=== PATIENT | female | born 1955 | race Caucasian/White ===

== ENCOUNTER 2021-02-12 11:26 | Inpatient (IN) | payer MEDICARE, MEDICAID ==
[~2021-02-12] VITALS: Ht 154.9 cm; Wt 72.1 kg
[2021-02-12] MEDS ORDERED: MAALOX 30 ML SUSP *UDC PO PRN (13:50)
[2021-02-12] MEDS ORDERED: GLUCAGON INJ 1MG VIAL SC PRN (13:50)
[2021-02-12] MEDS ORDERED: GLUCOSE 4GM CHEW TABLET PO PRN (13:50)
[2021-02-12] MEDS ORDERED: DEXTROSE 50% 50 ML SYRINGE IV PRN (13:50)
--- NOTE | 2021-02-12 15:16 | HPEPDOC ---
Planning Official Note DATE OF ADMISSION: 02-12-21 DATE OF SERVICE: 02-13-21 TIME OF ADMISSION: Please refer to physician's admission order. SOURCE OF ADMISSION INFORMATION: [facility] records and patient CHIEF COMPLAINT: s/p aortic and mitral valve repair HISTORY OF PRESENT ILLNESS: 65F pmh HTN, HLD, obesity, hypothyroidism, depression, CKD4, vulvar cancer s/p left partial radical vulvectomy in 2004, severe aortic and mitral valve stenosis admitted to [facility] for a planned surgery for which she underwent a sternotomy with a redo-aortic valve replacement (original done in 2007)and mitral valve repair. Post-operatively she developed a fever for which infectious work-up was negative. She was started on Coumadin with goal INR 2.5- 3.5 for mechanical valves and on 01-27-21 underwent pacemaker placement. She had hoarseness for which she was initially made NPO then placed on a puree diet with FEES study showing normal vocal cords. She was anemic and received 1 unit of pr bcs on 02-09-21. CXR on 02-12-21 showed, status post median sternotomy, a left- sided transvenous pacemakerbibasilar atelectasis. No pneumonia, pulmonary edema, pneumothoraces, or pleural effusion. She had mobility and ADL impairments below her prior level of function with difficulties with overall endurance and deemed medically appropriate for discharge to ARU on 02-12-21. REVIEW OF SYSTEMS: The following is a completed review of systems and has been reviewed. Review of systems otherwise unremarkable. PAIN: Patient self reports no pain EYES: No recent vision changes EARS, NOSE, & THROAT: No throat pain, + dysphagia CARDIOVASCULAR: Denies chest pain or palpitations PULMONARY: Denies shortness of breath GASTROINTESTINAL: Denies constipation/diarrhea, +black stools GENITOURINARY: denies dysuria MUSCULOSKELETAL:generalized weakness NEUROLOGICAL: +bilat feet paresthesias HEMATOLOGICAL: +anemia SKIN: +sternal incision PSYCHIATRIC: Unremarkable All other review of systems found to be negative. PAST MEDICAL HISTORY: as per HPI PAST SURGICAL HISTORY: As per HPI, tubal ligation ALLERGIES: Please see below. MEDICATIONS: Please see below. SOCIAL HISTORY: no etoh/illicit drugs/smoking DIET: puree PHYSICAL EXAMINATION: VITAL SIGNS: Please see below. GENERAL: Pleasant and cooperative. No acute distress. pale HEENT: PERRL. Extraocular movements intact. Clear conjunctiva, poor dentition CARDIOVASCULAR: Regular rate and rhythm. No murmurs, rubs, or gallops LUNGS: Clear to auscultation bilaterally. No wheezes. No rhonchi ABDOMEN: Soft, nontender, mildly distended, Positive bowel sounds. Normal active bowel sounds NEUROLOGICAL: Alert and oriented times three. Cranial nerves II through XII grossly intact. Sensation grossly intact EXTREMITIES: 5\5 strength bilateral upper extremities. 5\5 strength right lower extremity. 5/5 strength in left lower extremity. SKIN: sternal incision c/d/i, pacemaker incision c/d/i LABORATORY DATA: Please see below. IMAGING:Imaging documentation personally reviewed by record FUNCTIONAL STATUS: Premorbid: Independent with all activities of daily life as well as mobility On Admission: Min-contact guard for bed mobility, functional transfers, ambulation, dressing GOALS: Mod-I with RW for ambulation, functional transfers, ambulation, stairs, dressing, toileting, bathing ASSESSMENT:65-year-old F with past medical history of prior aortic valve repair who presents status post re-do aortic valve replacement and mitral valve replacement PLAN: 1. Rehab- PT/OT advance mobility and ADLs, strengthen/stretch/maintain ROM all 4 limbs -CUSTOMER ASSOCIATE for dysphagia work-up, magic mouth wash for optimal oral care 2. Cardiac- s/p aortic valve and mitral mechanical valve replacement and pacemaker placement on Coumadin with goal INR 2.5-3.5, additionally patient is on 325mg daily, cont beta-apoorva- sternal and pacemaker precautions, avoid driving for 6 months -HLD cont statin -monitor for fluid overload, fluid restrict and daily weights in setting of probable some degree of CHF -medicine consulted to assist in overall management -f/u cardiac surgeon 03-26-21 , will need repeat CXR prior -EP Dr. Otto [phone] 3. Resp- monitor for infection 4. Endo- hx of hypothyroidism, cont synthroid -insulin sliding scale in place due to new dx of diabetes with A1C f 7.1%, will monitor FS while here and avoid metformin given CKD 5. Heme- anemia with Hgb 7.7% on 02-13-21, patient reporting she has a hx of black stools which she believes is from her iron, will give 2 units prbc, and await collection of FOBT 6. GI- high suspicion for GI bleed while on Coumadin and ASA 325mg daily , cont protonix 40mg BID and sucralfate, f/u FOBT 7. Pain- tramadol and tylenol, gabapentin -lidoderm patch to sternum 8. DVT ppx- teds and on coumadin 9. Psych- cont zoloft for depression, seroquel prn insomnia and rozerem 10. Renal- hx of CKD monitor for NEHEMIAS 11. Dispo- TBD POST ADMISSION PHYSICIAN EVALUATION: Medical and functional status: Description of medical status, medical assessment: As above. Rehabilitation diagnosis and current and prior cold morbid medical conditions as above. Risk of complications and plans to mitigate them as above. Description of functional status current status is as above. Prior status as above. Status compared to preadmission: There are no clinically significant differences between the patient's current status and the information described on the preadmission screening document. Treatment plan anticipated: Treatment plan is as described above. Required disciplines including physical therapy, occupational therapy, others as noted above Intensity of services: 3 hours a day, 6 days a week. Special considerations: There are no specific special or safety considerations that would likely preclude immediate implementation of an intensive rehabilitation program or subsequently influence the plan of care. ATTESTATION: Considering all the information above, it is my best judgment that this patient requires intensive rehabilitation therapy as described above and an inpatient hospital environment due to the complexity of nursing, medical, and rehabilitation needs required by the patient. Furthermore, this patient can reasonably be expected to participate in an benefit from an inpatient rehabilitation stay with an interdisciplinary team approach to the delivery of rehabilitation care under the direction and supervision of rehabilitation physician. PROGNOSIS: good ESTIMATED LENGTH OF STAY:10-14 days. PROJECTED DISCHARGE DESTINATION: Home with family support and any durable med ical equipment required to increase functional safety and mobility TIME SPENT COUNSELING AND COORDINATING INITIAL CARE: Greater than 70 minutes. Vital Signs Vital Signs Date Time Temp Pulse Resp B/P (MAP) Pulse Ox O2 Delivery O2 Flow Rate FiO2 02/12/21 18:20 96.9 75 18 160/60 (93) 100 Room Air Home Medications Scheduled Aspirin (Aspirin EC) 325 Mg Tablet., 325 MG PO DAILY, (Reported) HOME DOSE INCREASE FROM 81MG AT [facility] Atorvastatin Calcium (Atorvastatin Calcium) 40 Mg Tablet, 40 MG PO QHS, (Reported) Ferrous Sulfate (Ferrous Sulfate) 324 Mg Tablet.dr, 324 MG PO DAILY, (Reported) Gabapentin (Gabapentin) 100 Mg Capsule, 200 MG PO QHS, (Reported) STARTED AT [facility] Insulin Human Regular (Humulin R) 100 Unit/1 Ml Vial, 1 DOSE SC QHS, (Reported) 0-2 UNITS PER SLIDING SCALE - STARTED AT [facility] Insulin Lispro (Admelog) 100 Unit/1 Ml Vial, 1 DOSE SC AC, (Reported) PER SLIDING SCALE - STARTED AT [facility] Levothyroxine Sodium (Levoxyl) 88 Mcg Tablet, 88 MCG PO DAILY, (Reported) DOSE CHANGED AT [facility] Lidocaine (Anecream) 4% Cream..g., 1 APLCT TOP QHS, (Reported) APPLY TO AFFECTED AREA - STARTED AT [facility] Melatonin (Melatonin) 5 Mg Tablet, 5 MG PO QHS, (Reported) STARTED AT [facility] Metoprolol Succinate (Metoprolol Succinate) 25 Mg Tab.er.24h, 25 MG PO BID, (Reported) Nystatin (Nystatin Oint) 30 Gm Oint...g., 1 DOSE TOP TID, (Reported) APPLY TO GROIN, UPPER THIGHS, ABDOMINAL FOLDS, & BUTTOCKS - STARTED AT [facility] Omeprazole (Omeprazole) 20 Mg Capsule.dr, 20 MG PO DAILY, (Reported) Sertraline HCl (Sertraline HCl) 50 Mg Tablet, 50 MG PO DAILY, (Reported) Warfarin Sodium (Warfarin Sodium) 1 Mg Tablet, 1 DOSE PO QPM, (Reported) BASED ON DAILY INR, STARTED AT [facility] Scheduled PRN Acetaminophen (Tylenol) 325 Mg Tablet, 650 MG PO Q8H PRN for MILD PAIN (PS 1-4), (Reported) Quetiapine Fumarate (Seroquel) 25 Mg Tablet, 25 MG PO QHS PRN for SLEEP, (Reported) STARTED AT [facility] Tramadol HCl (Tramadol HCl) 50 Mg Tablet, 25 MG PO Q6H PRN for MODERATE PAIN (PS 5-7), (Reported) STARTED AT [facility] Allergies Coded Allergies: phenytoin (Verified Allergy, Mild, HAND SWELLING, 02/12/21) A-FIB/CHADSVASC A-FIB History Current/History of A-Fib/PAF?: No Current PO Anticoag Therapy: Yes JOSE RAVI MD Feb 12, 2021 15:16
[2021-02-12 18:20] VITALS: BP 160/60
[2021-02-12] MEDS ORDERED: ANEC4CRE3 TOP (19:37)
[2021-02-12] MEDS ORDERED: ACET-907 PO (19:37)
[2021-02-12] MEDS ORDERED: SERT50TA29 PO (19:37)
[2021-02-12] MEDS ORDERED: SERO1TAB3 PO (19:37)
[2021-02-12] MEDS ORDERED: METO1TAB32 PO (19:37)
[2021-02-12] MEDS ORDERED: GABA-1171 PO (19:37)
[2021-02-12] MEDS ORDERED: NYSTOI TOP (19:37)
[2021-02-12] MEDS ORDERED: MELA5TAB7 PO (19:37)
[2021-02-12] MEDS ORDERED: OMEP-218 PO (19:37)
[2021-02-12] MEDS ORDERED: ADME100I SC (19:37)
[2021-02-12] MEDS ORDERED: INSURSD SC (19:37)
[2021-02-12] MEDS ORDERED: ASPI325T48 PO (19:37)
[2021-02-12] MEDS ORDERED: TRAM50TA2 PO (19:37)
[2021-02-12] MEDS ORDERED: WARF4TAB52 PO (19:37)
[2021-02-12] MEDS ORDERED: ATOR40TA75 PO (19:37)
[2021-02-12] MEDS ORDERED: FERR324T2 PO (19:37)
[2021-02-12] MEDS ORDERED: LEVO88TA24 PO (19:37)
[2021-02-12] MEDS ORDERED: HOME MED LIST COMPLETE! XX SCH (19:40)
[2021-02-12 19:43] LABS: INR 3.47; PROTHROMBIN TIME 35.1 SECONDS (12.7-14.5)
[2021-02-12 19:44] LABS: PARTIAL THROMBOPLASTIN TIME 52.8 SECONDS (25.9-37.0)
[2021-02-12 20:00] VITALS: BP 144/65
[2021-02-12] MEDS ORDERED: PILL CUTTER 1 EACH XX PRN (20:05)
[2021-02-12] MEDS: GABAPENTIN 100 MG CAP PO SCH (20:55)
[2021-02-12] MEDS: RAMELTEON 8 MG TAB (ROZEREM) PO PRN (20:55)
[2021-02-12] MEDS: ACETAMINOPHEN 500 MG TAB PO SCH (20:55)
[2021-02-12] MEDS: traMADol 50 MG TAB PO PRN (20:56)
[2021-02-12] MEDS: SENNA 8.6 MG TAB (SENOKOT) PO SCH (20:58)
[2021-02-12] MEDS: METOPROLOL SUCC *XL* 25MG TAB (TopROL *XL*) PO SCH (20:58)
[2021-02-12] MEDS: HumaLOG INSULIN (NovoLOG) PER UNIT SC SCH (20:58)
[2021-02-12] MEDS: DOCUSATE SODIUM 100MG CAPSULE PO SCH (20:58)
[2021-02-12] MEDS: PANTOPRAZOLE 40MG TAB (PROTONIX) PO SCH (20:58)
[2021-02-12] MEDS: REMEDY PHYTOPLEX Z-GUARD PASTE 113GM TUBE (FROM STOREROOM PRODUCT) TOP SCH (20:59)
[2021-02-12] MEDS: **NOTE PATIENT COMMENT** MISC XX SCH (20:59)
[2021-02-12] MEDS: NYSTATIN 100,000 UNITS/GM TOPICAL PWD 15 GM TOP SCH (20:59)
[2021-02-13] VITALS (12 sets, daily range): BP systolic 98–130; BP diastolic 52–72
[2021-02-13] MEDS: REMEDY PHYTOPLEX Z-GUARD PASTE 113GM TUBE (FROM STOREROOM PRODUCT) TOP SCH ×3 (06:00→18:00)
[2021-02-13] MEDS: LEVOTHYROXINE 88MCG TABLET (0.088 MG) PO SCH (06:38)
[2021-02-13] MEDS: traMADol 50 MG TAB PO PRN (06:49)
[2021-02-13] MEDS: HumaLOG INSULIN (NovoLOG) PER UNIT SC SCH ×4 (07:30→20:12)
[2021-02-13 07:59] LABS: BASO # 0.1 10^3/uL (0.0-0.2); BASO % 0.6 % (0.0-1.0); EOS # 0.5 10^3/uL (0.0-0.5); EOS % 6.7 % (0.0-3.0); HEMATOCRIT 25.2 % (36.0-47.0); HEMOGLOBIN 7.7 g/dl (12.0-15.5); LYMPH # 0.7 10^3/uL (1.5-5.0); LYMPH % 9.1 % (24.0-44.0); MEAN CORPUSCULAR HEMOGLOBIN 29.2 pg (27.0-33.0); MEAN CORPUSCULAR HGB CONC 30.6 g/dl (32.0-36.5); MEAN CORPUSCULAR VOLUME 95.5 fl (80.0-96.0); MONO # 0.5 10^3/uL (0.0-0.8); MONO % 6.8 % (2.0-8.0); NEUTROPHILS % 76.4 % (36.0-66.0); PLATELET COUNT, AUTOMATED 523 10^3/uL (150-450); RED BLOOD COUNT 2.64 10^6/uL (4.00-5.40); WHITE BLOOD COUNT 7.9 10^3/uL (4.0-10.0)
[2021-02-13 08:12] LABS: INR 3.93; PROTHROMBIN TIME 38.7 SECONDS (12.7-14.5)
[2021-02-13 08:22] LABS: BILIRUBIN,TOTAL 0.5 MG/DL (0.2-1.0); CALCIUM LEVEL 8.5 MG/DL (8.8-10.2); CREATININE FOR GFR 1.45 MG/DL (0.55-1.30); GLOMERULAR FILTRATION RATE 38.3 (>45); POTASSIUM SERUM 4.3 MEQ/L (3.5-5.1); TOTAL PROTEIN 6.8 GM/DL (6.4-8.2)
[2021-02-13] MEDS: LIDOCAINE 5% (LIDODERM) PATCH TD SCH (09:04)
[2021-02-13] MEDS: NYSTATIN 100,000 UNITS/GM TOPICAL PWD 15 GM TOP SCH ×2 (09:04→20:15)
[2021-02-13] MEDS: SERTRALINE HCL 50 MG TAB PO SCH (09:05)
[2021-02-13] MEDS: CYANOCOBALAMIN 500 MCG TAB PO SCH (09:05)
[2021-02-13] MEDS: ASPIRIN ENTERIC 325 MG TAB PO SCH (09:05)
[2021-02-13] MEDS: ATORVASTATIN 20 MG TAB PO SCH (09:05)
[2021-02-13] MEDS: PANTOPRAZOLE 40MG TAB (PROTONIX) PO SCH ×2 (09:05→20:09)
[2021-02-13] MEDS: FERROUS SULFATE 325MG TAB PO SCH (09:05)
[2021-02-13] MEDS: DOCUSATE SODIUM 100MG CAPSULE PO SCH ×2 (09:05→20:08)
[2021-02-13] MEDS: ACETAMINOPHEN 500 MG TAB PO SCH ×3 (09:06→20:09)
[2021-02-13] MEDS: METOPROLOL SUCC *XL* 25MG TAB (TopROL *XL*) PO SCH ×2 (09:06→20:09)
[2021-02-13] MEDS ORDERED: diphenhydrAMINE 25MG CAP PO ONE (09:50)
[2021-02-13] MEDS ORDERED: FUROSEMIDE 20MG/2ML VIAL (J1940) IV ONE (09:50)
[2021-02-13] MEDS ORDERED: ACETAMINOPHEN TAB 650MG DOSE (2X325MG) PO ONE (09:50)
--- NOTE | 2021-02-13 11:06 | HPEPDOC ---
[facility] Medical History & Physical Date of Admission Feb 12, 2021 Date of Service: Feb 13, 2021 Other Provider My He Do hospitalist consult Attending Physician: JOSE RAVI MD History and Physical CHIEF COMPLAINT: Weakness after cardiac surgery HISTORY OF PRESENT ILLNESS: Patient is a 65-year-old female who presented to the acute rehabilitation unit from [facility] in [place], [place] yesterday, 02/12/2021 after repair of stenotic bioprosthetic aortic valve and stenotic mitral valve with mechanical aortic mechanical mitral valve placed on 01/22/2021. 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 Patient states that she is scheduled to have the surgery done in [place], [place] however, they canceled the surgery and sent her to [place], [place] as there was too much calcification of the mitral annulus and they were unable to do the procedure there. Patient states that she is feeling better but is feeling weak. While she was hospitalized, patient did require a unit of blood to be transfused as her hemoglobin was slowly dropping throughout her hospitalization according to the notes. Patient did not have any difficulty with his transfusion. Patient does not complain of any pain at this time. Patient is otherwise feeling well. PAST MEDICAL HISTORY: 1. Hypertension. 2. Hyperlipidemia. 3. Chronic kidney disease stage IV. 4. Obesity 5. Hypothyroidism 6. Vulvar cancer 7. Aortic stenosis of bioprosthetic valve 8. Severe mitral stenosis PAST SURGICAL HISTORY: 1. Placement of mechanical aortic and mitral valve on 01/22/2021. 2. Pacemaker placed on 01/27/2021. 3. Bioprosthetic aortic valve replacement 2007. 4. Tubal ligation 5. Partial vulvectomy SOCIAL HISTORY: Patient lives in [place], [place] alone. 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 Patient does not smoke cigarettes. Patient will very rarely drink alcohol denies illicit drug use FAMILY HISTORY: Patient's mother had 4 heart surgeries due to rheumatic heart disease, patient sister did for heart surgery but she is unsure of the exact reasons. Patient's uncle also had a heart surgery but again she is unsure of why ALLERGIES: Please see below. REVIEW OF SYSTEMS: General: Patient denies fevers HEENT: Patient denies headaches Cardiovascular: Patient denies chest pain Respiratory: Patient denies shortness of breath, cough GI: Patient denies abdominal pain, nausea, vomiting, diarrhea : Patient denies increased frequency or pain with urination Extremities: Patient denies swelling or pain in extremities Neurological: Patient denies numbness or tingling in legs Skin: Patient denies any new rashes or lesions. Hematologic: Patient denies any easy bruising. Lymphatic: Patient denies any lumps lumps or bumps in neck, axilla, or groin HOME MEDICATIONS: Please see below. PHYSICAL EXAMINATION: VITAL SIGNS: Temperature 97.8, pulse 93, respiratory rate 18, blood pressure 128/60, pulse oximetry 96% on room air. General: Alert and oriented female patient who was sitting in the bedside chair and walked in the room. Patient did not appear to be in any acute distress. HEENT: Normocephalic, atraumatic, moist mucous membranes. Neck: No lymphadenopathy or thyromegaly Cardiac: Regular rate and rhythm, mechanical valves could be heard loudest over the aortic and mitral positions Pulm: Clear to auscultation bilaterally. No wheezes, rhonchi, rales Abd: Nondistended, nontender to palpation, normal bowel sounds Ext: No edema bilateral lower extremities Neuro: Patient is able move all 4 extremities on command. Patient reports he was sensation light touch in all 4 extremities Skin: Patient does have some bruising in the right antecubital fossa but no other rashes or lesions LABORATORY DATA: See below. IMAGING: No imaging has been performed during this hospitalization MICROBIOLOGY: Please see below. ASSESSMENT: 65-year-old female who was admitted into the acute rehabilitation unit for rehab after cardiac surgery at [facility]. Hospitalist was consulted for medical management. PLAN: 1. Weakness after cardiac surgery. Continue the treatment plan per the acute rehabilitation staff. Continue work with physical, occupational, and speech therapy and discharge to be per Dr. Carrillo. 2. Recent mechanical valve placement. Patient will need INR between 2.5-3.5. Patient is currently on Coumadin. Patient's INR supratherapeutic at 3.8 this morning. Patient's Coumadin will be held today. Patient was on 1 mg of warfarin daily once discharged in the hospital. We will keep a close eye on her INR with daily checks until we are on current regimen. 3. Anemia. Patient will receive 2 units of packed red blood cells as her hemoglobin is 7.7. These were ordered by Dr. Carrillo of rehab. We will continue to monitor. Patient is currently on iron. Patient does have a history of chronic kidney disease stage IV and this may be a contributing factor. Patient did require a unit of packed red blood cells at [facility]. 4. Hypertension. Continue to monitor the patient's blood pressure and treat as necessary. 5. Hyperlipidemia. Continue patient's on medications. 6. Chronic kidney disease stage IV. Avoid nephrotoxic agents. Continue to monitor patient's creatinine while she is hospitalized. 7. Hypothyroidism. Continue levothyroxine. 8. DVT prophylaxis: Patient is fully anticoagulated with warfarin. 9. CODE STATUS: Full code Disposition: Patient is admitted to the acute rehabilitation unit and hospitalist are on consult. Please contact hospitalist for any questions regarding the patient's medical conditions. Vital Signs Vital Signs Date Time Temp Pulse Resp B/P (MAP) Pulse Ox O2 Delivery O2 Flow Rate FiO2 02/13/21 09:06 93 128/60 02/13/21 07:19 18 02/13/21 06:49 Room Air 02/13/21 06:00 97.8 96 Laboratory Data Labs 24H Laboratory Tests 2 02/12/21 18:52: Bedside Glucose (Misc Panel) 106 02/12/21 19:07: Prothrombin Time 35.1H, Prothromb Time International Ratio 3.47, Activated Partial Thromboplast Time 52.8H 02/13/21 05:40: Bedside Glucose (Misc Panel) 96 02/13/21 06:51: Prothrombin Time 38.7H, Prothromb Time International Ratio 3.93, Immature Granulocyte % (Auto) 0.4, Neutrophils (%) (Auto) 76.4H, Lymphocytes (%) (Auto) 9.1L, Monocytes (%) (Auto) 6.8, Eosinophils (%) (Auto) 6.7H, Basophils (%) (Auto) 0.6, Neutrophils # (Auto) 6.0, Lymphocytes # (Auto) 0.7L, Monocytes # (Auto) 0.5, Eosinophils # (Auto) 0.5, Basophils # (Auto) 0.1, Nucleated Red Blood Cells % (auto) 0.0, Anion Gap 5L, Glomerular Filtration Rate 38.3L, Calcium Level 8.5L, Total Bilirubin 0.5, Aspartate Amino Transf (AST/SGOT) 22, A lanine Aminotransferase (ALT/SGPT) 25, Alkaline Phosphatase 109, Total Protein 6.8, Albumin 3.0L, Albumin/Globulin Ratio 0.8L CBC/BMP Laboratory Tests 02/13/21 06:51 Home Medications Scheduled Aspirin (Aspirin EC) 325 Mg Tablet.dr, 325 MG PO DAILY HOME DOSE INCREASE FROM 81MG AT [facility] Atorvastatin Calcium (Atorvastatin Calcium) 40 Mg Tablet, 40 MG PO QHS Ferrous Sulfate (Ferrous Sulfate) 324 Mg Tablet.dr, 324 MG PO DAILY Gabapentin (Gabapentin) 100 Mg Capsule, 200 MG PO QHS STARTED AT [facility] Insulin Human Regular (Humulin R) 100 Unit/1 Ml Vial, 1 DOSE SC QHS 0-2 UNITS PER SLIDING SCALE - STARTED AT [facility] Insulin Lispro (Admelog) 100 Unit/1 Ml Vial, 1 DOSE SC AC PER SLIDING SCALE - STARTED AT [facility] Levothyroxine Sodium (Levoxyl) 88 Mcg Tablet, 88 MCG PO DAILY DOSE CHANGED AT [facility] Lidocaine (Anecream) 4% Cream..g., 1 APLCT TOP QHS APPLY TO AFFECTED AREA - STARTED AT [facility] Melatonin (Melatonin) 5 Mg Tablet, 5 MG PO QHS STARTED AT [facility] Metoprolol Succinate (Metoprolol Succinate) 25 Mg Tab.er.24h, 25 MG PO BID Nystatin (Nystatin Oint) 30 Gm Oint...g., 1 DOSE TOP TID APPLY TO GROIN, UPPER THIGHS, ABDOMINAL FOLDS, & BUTTOCKS - STARTED AT [facility] Omeprazole (Omeprazole) 20 Mg Capsule.dr, 20 MG PO DAILY Sertraline HCl (Sertraline HCl) 50 Mg Tablet, 50 MG PO DAILY Warfarin Sodium (Warfarin Sodium) 1 Mg Tablet, 1 DOSE PO QPM BASED ON DAILY INR, STARTED AT [facility] Scheduled PRN Acetaminophen (Tylenol) 325 Mg Tablet, 650 MG PO Q8H PRN for MILD PAIN (PS 1-4) Quetiapine Fumarate (Seroquel) 25 Mg Tablet, 25 MG PO QHS PRN for SLEEP STARTED AT [facility] Tramadol HCl (Tramadol HCl) 50 Mg Tablet, 25 MG PO Q6H PRN for MODERATE PAIN (PS 5-7) STARTED AT [facility] Allergies Coded Allergies: phenytoin (Verified Allergy, Mild, HAND SWELLING, 02/12/21) A-FIB/CHADSVASC A-FIB History Current/History of A-Fib/PAF?: No Treatment Treatment ordered: Warfarin MY HE DO Feb 13, 2021 11:06
[2021-02-13] MEDS: MAGIC MOUTHWASH SUSPENSION BTL SSP SCH ×2 (12:00→17:30)
[2021-02-13] MEDS: SUCRALFATE 1 GM TAB PO SCH ×3 (12:57→20:08)
[2021-02-13] MEDS: GABAPENTIN 100 MG CAP PO SCH (20:08)
[2021-02-13] MEDS: SENNA 8.6 MG TAB (SENOKOT) PO SCH (20:08)
[2021-02-13] MEDS: **NOTE PATIENT COMMENT** MISC XX SCH (20:15)
[2021-02-14] MEDS: REMEDY PHYTOPLEX Z-GUARD PASTE 113GM TUBE (FROM STOREROOM PRODUCT) TOP SCH ×5 (00:51→23:44)
[2021-02-14] MEDS: LEVOTHYROXINE 88MCG TABLET (0.088 MG) PO SCH (05:40)
[2021-02-14 06:14] VITALS: BP 110/65
[2021-02-14] MEDS: traMADol 50 MG TAB PO PRN ×2 (06:54→21:58)
[2021-02-14 07:25] LABS: HEMATOCRIT 31.8 % (36.0-47.0); RED BLOOD COUNT 3.58 10^6/uL (4.00-5.40); WHITE BLOOD COUNT 7.7 10^3/uL (4.0-10.0)
[2021-02-14 07:26] LABS: BASO # 0.1 10^3/uL (0.0-0.2); BASO % 0.8 % (0.0-1.0); EOS # 0.5 10^3/uL (0.0-0.5); EOS % 6.1 % (0.0-3.0); LYMPH # 0.9 10^3/uL (1.5-5.0); LYMPH % 11.2 % (24.0-44.0); MEAN CORPUSCULAR HEMOGLOBIN 27.7 pg (27.0-33.0); MEAN CORPUSCULAR HGB CONC 31.1 g/dl (32.0-36.5); MEAN CORPUSCULAR VOLUME 88.8 fl (80.0-96.0); MONO # 0.7 10^3/uL (0.0-0.8); MONO % 8.7 % (2.0-8.0); NEUTROPHILS # 5.6 10^3/uL (1.5-8.5); NEUTROPHILS % 72.8 % (36.0-66.0); PLATELET COUNT, AUTOMATED 419 10^3/uL (150-450)
[2021-02-14 07:27] LABS: HEMOGLOBIN 9.9 g/dl (12.0-15.5)
[2021-02-14] MEDS: MAGIC MOUTHWASH SUSPENSION BTL SSP SCH ×4 (07:30→15:52)
[2021-02-14 07:32] LABS: INR 4.17; PROTHROMBIN TIME 40.5 SECONDS (12.7-14.5)
[2021-02-14] MEDS: HumaLOG INSULIN (NovoLOG) PER UNIT SC SCH ×4 (08:19→21:00)
[2021-02-14] MEDS: SUCRALFATE 1 GM TAB PO SCH ×4 (08:20→20:50)
[2021-02-14] MEDS: DOCUSATE SODIUM 100MG CAPSULE PO SCH ×2 (09:00→20:50)
[2021-02-14] MEDS: LIDOCAINE 5% (LIDODERM) PATCH TD SCH (09:04)
[2021-02-14] MEDS: CYANOCOBALAMIN 500 MCG TAB PO SCH (09:05)
[2021-02-14] MEDS: SERTRALINE HCL 50 MG TAB PO SCH (09:05)
[2021-02-14] MEDS: METOPROLOL SUCC *XL* 25MG TAB (TopROL *XL*) PO SCH (09:06)
[2021-02-14] MEDS: ASPIRIN ENTERIC 325 MG TAB PO SCH (09:06)
[2021-02-14] MEDS: PANTOPRAZOLE 40MG TAB (PROTONIX) PO SCH ×2 (09:06→20:50)
[2021-02-14] MEDS: ACETAMINOPHEN 500 MG TAB PO SCH ×3 (09:06→20:52)
[2021-02-14] MEDS: FERROUS SULFATE 325MG TAB PO SCH (09:06)
[2021-02-14] MEDS: ATORVASTATIN 20 MG TAB PO SCH (09:06)
[2021-02-14] MEDS: NYSTATIN 100,000 UNITS/GM TOPICAL PWD 15 GM TOP SCH ×2 (09:11→22:00)
--- NOTE | 2021-02-14 10:51 | IPNPDOC ---
PM&R Progress Note DATE OF SERVICE: Feb 14, 2021 Sponge Maker Progress Note Subjective: Patient reporting both her feet go numb when she sits for long periods while her legs hang over the seat of the chair. She states that following her cardiac surgery she noticed her right foot was numb and she difficulty lifting it. She says it is somewhat improved since coming to [facility]. REVIEW OF SYSTEMS: The following is a completed review of systems and has been reviewed. Review of systems otherwise unremarkable. PAIN: Patient self reports no pain EYES: No recent vision changes EARS, NOSE, & THROAT: No throat pain, + dysphagia CARDIOVASCULAR: Denies chest pain or palpitations PULMONARY: Denies shortness of breath GASTROINTESTINAL: Denies constipation/diarrhea, +black stools GENITOURINARY: denies dysuria MUSCULOSKELETAL:generalized weakness, right foot drop NEUROLOGICAL: +bilat feet paresthesias HEMATOLOGICAL: +anemia SKIN: +sternal and abdominal incision PSYCHIATRIC: Unremarkable All other review of systems found to be negative. PHYSICAL EXAMINATION: VITAL SIGNS: Please see below. GENERAL: Pleasant and cooperative. No acute distress. pale HEENT: PERRL. Extraocular movements intact. Clear conjunctiva, poor dentition CARDIOVASCULAR: Regular rate and rhythm. No murmurs, rubs, or gallops LUNGS: Clear to auscultation bilaterally. No wheezes. No rhonchi ABDOMEN: Soft, nontender, mildly distended, Positive bowel sounds. Normal active bowel sounds NEUROLOGICAL: Alert and oriented times three. Cranial nerves II through XII grossly intact. Sensation grossly intact right ankle (no clonus/babinski) EXTREMITIES: 5\5 strength bilateral upper extremities. 5\5 strength right hip flexion and knee extension, 1/5 right ankle DF/EHL and plantar flexion. 5/5 strength in left lower extremity. SKIN: sternal incision c/d/i, pacemaker incision c/d/i -abdominal incisions with 5 exudative ulcers ASSESSMENT:65-year-old F with past medical history of prior aortic valve repair who presents status post re-do aortic valve replacement and mitral valve replacement PLAN: 1. Rehab- PT/OT advance mobility and ADLs, strengthen/stretch/maintain ROM all 4 limbs -CPA TAX for dysphagia work-up, magic mouth wash for optimal oral care, level 3 diet per CPA TAX eval 2. Cardiac- s/p aortic valve and mitral mechanical valve replacement and pacemaker placement on Coumadin with goal INR 2.5-3.5, additionally patient is on 325mg daily, cont beta-apoorva- sternal and pacemaker precautions, avoid driving for 6 months -HLD cont statin -monitor for fluid overload, fluid restrict and daily weights in setting of probable some degree of CHF -medicine consulted to assist in overall management -f/u cardiac surgeon 03-26-21 , will need repeat CXR prior -EP Dr. tOto [phone] 3. 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 Resp- monitor for infection 4. Endo- hx of hypothyroidism, cont synthroid -insulin sliding scale in place due to new dx of diabetes with A1C f 7.1%, will monitor FS while here and avoid metformin given CKD 5. Heme- anemia with Hgb 7.7% on 02-13-21, patient reporting she has a hx of black stools which she believes is from her iron, will give 2 units prbc, and await collection of FOBT 6. GI- high suspicion for GI bleed while on Coumadin and ASA 325mg daily , cont protonix 40mg BID and sucralfate, f/u FOBT 7. Pain- tramadol and tylenol, gabapentin -lidoderm patch to sternum 8. DVT ppx- teds and on coumadin 9. Psych- cont zoloft for depression, seroquel prn insomnia and rozerem 10. Renal- hx of CKD monitor for NEHEMIAS 11. Dispo- TBD Allergies Coded Allergies: phenytoin (Verified Allergy, Mild, HAND SWELLING, 02/12/21) Vital Signs Vital Signs Date Time Temp Pulse Resp B/P (MAP) Pulse Ox O2 Delivery O2 Flow Rate FiO2 02/14/21 09:06 80 118/65 02/14/21 07:30 18 Room Air 02/14/21 06:14 96.8 95 Laboratory Data CBC/BMP Laboratory Tests 02/14/21 06:52 Labs 24H Laboratory Tests 2 02/13/21 11:39: Bedside Glucose (Misc Panel) 199H 02/13/21 17:24: Bedside Glucose (Misc Panel) 199H 02/13/21 20:00: Bedside Glucose (Misc Panel) 131H 02/14/21 05:42: Bedside Glucose (Misc Panel) 108 02/14/21 06:52: Immature Granulocyte % (Auto) 0.4, Neutrophils (%) (Auto) 72.8H, Lymphocytes (%) (Auto) 11.2L, Monocytes (%) (Auto) 8.7H, Eosinophils (%) (Auto) 6.1H, Basophils (%) (Auto) 0.8, Neutrophils # (Auto) 5.6, Lymphocytes # (Auto) 0.9L, Monocytes # (Auto) 0.7, Eosinophils # (Auto) 0.5, Basophils # (Auto) 0.1, Nucleated Red Blood Cells % (auto) 0.0, Prothrombin Time 40.5H, Prothromb Time International Ratio 4.17 Current Medications Current Medications Current Medications Medications (Trade) Dose Ordered Sig/Constantin Route PRN Reason Start Time Stop Time Status Last Admin Dose Admin Acetaminophen (Tylenol Tab) 1,000 mg TID PO 02/12/21 21:00 02/14/21 09:06 Al Hydrox/Mg Hydrox/Simethicone (Mylanta) 30 ml Q4HP PRN PO DYSPEPSIA 02/12/21 13:50 Aspirin (Ecotrin) 325 mg DAILY PO 02/13/21 09:00 02/14/21 09:06 Atorvastatin Calcium (Lipitor) 40 mg DAILY PO 02/13/21 09:00 02/14/21 09:06 Cyanocobalamin (Vitamin B12) 500 mcg QAM PO 02/13/21 09:00 02/14/21 09:05 Dextrose (Dextrose 50%) 25 ml ASDIRECTED PRN IV SEE LABEL COMMENTS 02/12/21 13:50 Docusate Sodium (Colace) 100 mg BID PO 02/12/21 21:00 02/13/21 20:08 Ferrous Sulfate (Ferrous Sulfate) 325 mg DAILY PO 02/13/21 09:00 02/14/21 09:06 Gabapentin (Neurontin) 200 mg QHS PO 02/12/21 21:00 02/13/21 20:08 Glucagon (Glucagon) 1 mg ASDIRECTED PRN SC SEE LABEL COMMENTS 02/12/21 13:50 Glucose (Glucose) 16 GM ASDIRECTED PRN PO SEE LABEL COMMENTS 02/12/21 13:50 Home Med (Home Med List Complete!) ASDIRECTED XX 02/12/21 19:40 02/12/21 19:46 DC Insulin Human Lispro (HumaLOG INSULIN) SEE PROTOCOL TABLE AC SC 02/13/21 07:30 02/14/21 08:19 Insulin Human Lispro (HumaLOG INSULIN) SEE PROTOCOL TABLE QHS SC 02/12/21 21:00 Levothyroxine Sodium (Synthroid) 88 mcg DAILY@06 PO 02/13/21 06:00 02/14/21 05:40 Lidocaine (Lidoderm Patch) 1 patch DAILY TD 02/13/21 09:00 02/14/21 09:04 Lidocaine/ Diphenhydr/Alum/ Mg/Simeth (Magic Mouthwash) 5ML AC SSP 02/13/21 12:00 02/14/21 08:22 Metoprolol Succinate (TopROL XL) 25 mg BID PO 02/12/21 21:00 02/14/21 09:47 DC 02/14/21 09:06 Metoprolol Tartrate (Lopressor) 12.5 mg BID PO 02/14/21 21:00 Non-Formulary Medication ( See Comment Field Below ) REMOVE LIDODERM PATCH DAILY@21 XX 02/12/21 21:00 02/13/21 20:15 Nystatin (Mycostatin Powder, Nystop) abdominal folds, butto... BID TOP 02/12/21 21:00 02/14/21 09:11 Pantoprazole Sodium (Protonix) 40 mg BID PO 02/12/21 21:00 02/14/21 09:06 Quetiapine Fumarate (SEROquel) 25 mg QHS PRN PO insomnia 02/12/21 13:50 Ramelteon (Rozerem) 8 mg QHS PRN PO INSOMNIA 02/12/21 13:50 02/12/21 20:55 Senna (Senokot) 1 tab QHS PO 02/12/21 21:00 02/13/21 20:08 Sertraline HCl (Zoloft) 50 mg DAILY PO 02/13/21 09:00 02/14/21 09:05 Sucralfate (Carafate) 1 gm ACHS PO 02/13/21 12:00 02/14/21 08:20 Tramadol HCl (Ultram) 25 mg Q4HP PRN PO MODERATE PAIN (PS 5-7) 02/12/21 13:50 02/14/21 06:54 JOSE RAVI MD Feb 14, 2021 10:51
--- NOTE | 2021-02-14 13:33 | REP ---
INDICATION: r/o retroperitoneal hematoma COMPARISON: None TECHNIQUE: Axial noncontrast images from the lung bases to the pubic symphysis with coronal and sagittal reformations. This CT examination was performed using the following dose reduction techniques: Automated exposure control, adjustment of mA and/or kv according to the patient's size, and use of iterative reconstruction technique. FINDINGS: Lung bases demonstrate chronic changes with bibasilar atelectasis and small pleural effusions (left greater than right). Liver, spleen, pancreas, gallbladder, bilateral adrenal glands and kidneys are normal. The enteric system is unremarkable and without obstruction or acute inflammatory process. Normal terminal ileum and appendix identified in the right lower quadrant. Scattered colonic diverticula noted without acute diverticulitis. Pelvis demonstrates normal bladder and age-appropriate uterus/adnexa. No ascites. No free air. No adenopathy. No focal inflammatory stranding. No evidence for intra-abdominal or retroperitoneal hematoma. Abdominal aorta without aneurysm. Musculoskeletal structures demonstrate generalized degenerative changes without acute osseous process. IMPRESSION: No acute abdominopelvic pathology appreciated. No evidence for intra-abdominal or retroperitoneal hematoma. Mild bibasilar atelectasis and small pleural effusions (left greater than right). Diverticulosis without acute diverticulitis. <Electronically signed by Rocky Meza > 02/14/21 [id number]
[2021-02-14 14:00] VITALS: BP 108/60
[2021-02-14] MEDS: SANTYL OINT 30GM TOP SCH ×2 (14:26→21:59)
[2021-02-14] MEDS: GABAPENTIN 100 MG CAP PO SCH (20:50)
[2021-02-14] MEDS: METOPROLOL TART 12.5 MG PER 1/2 TAB PO SCH (20:50)
[2021-02-14] MEDS: SENNA 8.6 MG TAB (SENOKOT) PO SCH (20:50)
[2021-02-14] MEDS ORDERED: SANTYL OINT 30GM TOP SCH (21:00)
[2021-02-14] MEDS: **NOTE PATIENT COMMENT** MISC XX SCH (21:27)
[2021-02-14 21:40] VITALS: BP 110/66
[2021-02-15] MEDS: traMADol 50 MG TAB PO PRN (03:24)
[2021-02-15] MEDS: LEVOTHYROXINE 88MCG TABLET (0.088 MG) PO SCH (05:28)
[2021-02-15] MEDS: REMEDY PHYTOPLEX Z-GUARD PASTE 113GM TUBE (FROM STOREROOM PRODUCT) TOP SCH ×3 (05:29→16:24)
[2021-02-15 06:26] VITALS: BP 124/83
[2021-02-15] MEDS: HumaLOG INSULIN (NovoLOG) PER UNIT SC SCH ×4 (07:16→21:00)
[2021-02-15] MEDS: SUCRALFATE 1 GM TAB PO SCH ×4 (07:16→21:26)
[2021-02-15] MEDS: ACETAMINOPHEN 500 MG TAB PO SCH ×3 (07:17→21:24)
[2021-02-15 07:40] LABS: INR 3.14; PROTHROMBIN TIME 32.6 SECONDS (12.7-14.5)
[2021-02-15] MEDS: DOCUSATE SODIUM 100MG CAPSULE PO SCH ×2 (07:47→21:26)
[2021-02-15] MEDS: LIDOCAINE 5% (LIDODERM) PATCH TD SCH (07:48)
[2021-02-15] MEDS: FERROUS SULFATE 325MG TAB PO SCH (07:48)
[2021-02-15] MEDS: PANTOPRAZOLE 40MG TAB (PROTONIX) PO SCH ×2 (07:49→21:24)
[2021-02-15] MEDS: METOPROLOL TART 12.5 MG PER 1/2 TAB PO SCH ×2 (07:49→21:25)
[2021-02-15] MEDS: CYANOCOBALAMIN 500 MCG TAB PO SCH (07:49)
[2021-02-15] MEDS: ASPIRIN ENTERIC 325 MG TAB PO SCH (07:49)
[2021-02-15] MEDS: ATORVASTATIN 20 MG TAB PO SCH (07:49)
[2021-02-15] MEDS: SERTRALINE HCL 50 MG TAB PO SCH (07:49)
[2021-02-15] MEDS: NYSTATIN 100,000 UNITS/GM TOPICAL PWD 15 GM TOP SCH ×2 (07:50→21:00)
[2021-02-15] MEDS: SANTYL OINT 30GM TOP SCH ×2 (07:51→21:28)
[2021-02-15 10:25] LABS: HEMATOCRIT 32.4 % (36.0-47.0); MEAN CORPUSCULAR HEMOGLOBIN 27.6 pg (27.0-33.0); MEAN CORPUSCULAR HGB CONC 30.9 g/dl (32.0-36.5); MEAN CORPUSCULAR VOLUME 89.5 fl (80.0-96.0); PLATELET COUNT, AUTOMATED 379 10^3/uL (150-450); RED BLOOD COUNT 3.62 10^6/uL (4.00-5.40); WHITE BLOOD COUNT 5.9 10^3/uL (4.0-10.0)
[2021-02-15] MEDS: MAGIC MOUTHWASH SUSPENSION BTL SSP SCH ×2 (12:00→16:18)
[2021-02-15 14:00] VITALS: BP 103/60
[2021-02-15] MEDS ORDERED: WARFARIN SOD 2.5MG TAB PO ONE (17:00)
[2021-02-15] MEDS: **NOTE PATIENT COMMENT** MISC XX SCH (21:00)
[2021-02-15] MEDS: GABAPENTIN 100 MG CAP PO SCH (21:25)
[2021-02-15] MEDS: SENNA 8.6 MG TAB (SENOKOT) PO SCH (21:26)
[2021-02-15 22:00] VITALS: BP 119/77
[2021-02-16] MEDS: traMADol 50 MG TAB PO PRN ×4 (01:18→20:13)
[2021-02-16] MEDS: RAMELTEON 8 MG TAB (ROZEREM) PO PRN ×2 (01:57→20:13)
[2021-02-16] MEDS: REMEDY PHYTOPLEX Z-GUARD PASTE 113GM TUBE (FROM STOREROOM PRODUCT) TOP SCH ×5 (05:17→20:16)
[2021-02-16] MEDS: LEVOTHYROXINE 88MCG TABLET (0.088 MG) PO SCH (05:31)
[2021-02-16 06:00] VITALS: BP 150/83
[2021-02-16] MEDS: MAGIC MOUTHWASH SUSPENSION BTL SSP SCH ×3 (07:30→16:20)
[2021-02-16 08:19] LABS: BASO # 0.1 10^3/uL (0.0-0.2); BASO % 1.3 % (0.0-1.0); EOS # 0.6 10^3/uL (0.0-0.5); EOS % 11.4 % (0.0-3.0); HEMATOCRIT 31.1 % (36.0-47.0); HEMOGLOBIN 9.5 g/dl (12.0-15.5); LYMPH # 0.8 10^3/uL (1.5-5.0); LYMPH % 15.2 % (24.0-44.0); MEAN CORPUSCULAR HEMOGLOBIN 27.5 pg (27.0-33.0); MEAN CORPUSCULAR HGB CONC 30.5 g/dl (32.0-36.5); MEAN CORPUSCULAR VOLUME 90.1 fl (80.0-96.0); MONO # 0.4 10^3/uL (0.0-0.8); MONO % 8.3 % (2.0-8.0); NEUTROPHILS # 3.4 10^3/uL (1.5-8.5); NEUTROPHILS % 63.4 % (36.0-66.0); PLATELET COUNT, AUTOMATED 364 10^3/uL (150-450); RED BLOOD COUNT 3.45 10^6/uL (4.00-5.40); WHITE BLOOD COUNT 5.3 10^3/uL (4.0-10.0)
[2021-02-16 08:29] LABS: INR 2.42; PROTHROMBIN TIME 26.7 SECONDS (12.7-14.5)
[2021-02-16 08:50] LABS: CALCIUM LEVEL 8.1 MG/DL (8.8-10.2); CREATININE FOR GFR 1.71 MG/DL (0.55-1.30); GLOMERULAR FILTRATION RATE 31.7 (>45); POTASSIUM SERUM 4.2 MEQ/L (3.5-5.1)
[2021-02-16] MEDS: ACETAMINOPHEN 500 MG TAB PO SCH ×4 (09:00→20:12)
[2021-02-16] MEDS: LIDOCAINE 5% (LIDODERM) PATCH TD SCH (09:00)
[2021-02-16] MEDS: NYSTATIN 100,000 UNITS/GM TOPICAL PWD 15 GM TOP SCH ×2 (09:00→20:16)
[2021-02-16] MEDS: DOCUSATE SODIUM 100MG CAPSULE PO SCH ×2 (09:01→20:15)
[2021-02-16] MEDS: ASPIRIN ENTERIC 325 MG TAB PO SCH (09:01)
[2021-02-16] MEDS: SERTRALINE HCL 50 MG TAB PO SCH (09:01)
[2021-02-16] MEDS: FERROUS SULFATE 325MG TAB PO SCH (09:01)
[2021-02-16] MEDS: HumaLOG INSULIN (NovoLOG) PER UNIT SC SCH (09:01)
[2021-02-16] MEDS: SUCRALFATE 1 GM TAB PO SCH ×4 (09:01→20:13)
[2021-02-16] MEDS: PANTOPRAZOLE 40MG TAB (PROTONIX) PO SCH ×2 (09:01→20:13)
[2021-02-16] MEDS: CYANOCOBALAMIN 500 MCG TAB PO SCH (09:02)
[2021-02-16] MEDS: ATORVASTATIN 20 MG TAB PO SCH (09:02)
[2021-02-16] MEDS: METOPROLOL TART 12.5 MG PER 1/2 TAB PO SCH ×2 (09:03→20:15)
--- NOTE | 2021-02-16 09:34 | IPNPDOC ---
PM&R Progress Note DATE OF SERVICE: Feb 16, 2021 Storeperson Progress Note Subjective: Patient asking about being on a fluid restriction and would like to not be getting anymore insulin. She says she feels mildly short of breath with exertion . She thinks her right foot drop is slowly getting a little better. REVIEW OF SYSTEMS: The following is a completed review of systems and has been reviewed. Review of systems otherwise unremarkable. PAIN: Patient self reports no pain EYES: No recent vision changes EARS, NOSE, & THROAT: No throat pain, + dysphagia CARDIOVASCULAR: Denies chest pain or palpitations PULMONARY: Denies shortness of breath GASTROINTESTINAL: Denies constipation/diarrhea, +black stools GENITOURINARY: denies dysuria MUSCULOSKELETAL:generalized weakness, right foot drop NEUROLOGICAL: +bilat feet paresthesias HEMATOLOGICAL: +anemia SKIN: +sternal and abdominal incision PSYCHIATRIC: Unremarkable All other review of systems found to be negative. PHYSICAL EXAMINATION: VITAL SIGNS: Please see below. GENERAL: Pleasant and cooperative. No acute distress. pale HEENT: PERRL. Extraocular movements intact. Clear conjunctiva, poor dentition CARDIOVASCULAR: Regular rate and rhythm. No murmurs, rubs, or gallops LUNGS: Clear to auscultation bilaterally. No wheezes. No rhonchi ABDOMEN: Soft, nontender, mildly distended, Positive bowel sounds. Normal active bowel sounds NEUROLOGICAL: Alert and oriented times three. Cranial nerves II through XII grossly intact. Sensation grossly intact right ankle (no clonus/babinski) EXTREMITIES: 5\5 strength bilateral upper extremities. 5\5 strength right hip flexion and knee extension, 1/5 right ankle DF/EHL and plantar flexion. 5/5 strength in left lower extremity. SKIN: sternal incision c/d/i, pacemaker incision c/d/i -abdominal incisions with 5 exudative ulcers ASSESSMENT:65-year-old F with past medical history of prior aortic valve repair who presents status post re-do aortic valve replacement and mitral valve replacement PLAN: 1. Rehab- PT/OT advance mobility and ADLs, strengthen/stretch/maintain ROM all 4 limbs, ambulating with RW -AUTOMOTIVE GENERATOR REPAIRER for dysphagia work-up, magic mouth wash for optimal oral care, level 3 diet per AUTOMOT[employer] GENERATOR REPAIRER eval 2. Cardiac- s/p aortic valve and mitral mechanical valve replacement and pacemaker placement on Coumadin with goal INR 2.5-3.5, additionally patient is on 325mg daily, cont beta-apoorva- sternal and pacemaker precautions, avoid driving for 6 months -HLD cont statin -monitor for fluid overload, fluid restrict and daily weights in setting of probable some degree of CHF -medicine consulted to assist in overall management -f/u cardiac surgeon 03-26-21 , will need repeat CXR prior -EP Dr. Otto [phone] 3. Neuro- patient reporting right foot drop since her surgery, on exam she has both dorsiflexion and plantar flexion weakness with decreased sensation on the dorsal and plantar surface of her right foot- suspect this is a sciatic nerve injury involving both peroneal and tibial nerves from compression at the level of the buttock region- patient reports that when her legs are hanging off the chair her feet go numb, patient instructed to no longer let her legs hang off the chair and to keep them elevated to alleviate pressure on sciatic nerve, low suspicion for multilevel spine root compression as patient denies back pain -could be a lumbosacral plexopathy injury, retroperitoneal hematoma ruled out via CT non-contrast 02-14-21 -will refer to neurology for NCS/EMG on d/c 3. Resp- monitor for infection 4. Endo- hx of hypothyroidism, cont synthroid -will d/c insulin sliding scale in place and monitor finger sticks BID, thus far well controlled -recent A1C f 7.1%, will monitor FS while here and avoid metformin given CKD, consistent carb diet 5. Heme- anemia with Hgb 7.7% on 02-13-21 s/p 2 units rbcs, patient does have +FOBT will moitor H/H and cont iron supplements 6. GI- high suspicion for GI bleed while on Coumadin and ASA 325mg daily , cont protonix 40mg BID and sucralfate, FOBT positive, will cont to monitor H/H which is relatively stable post transfusion, however if drops will get surgical consult for possible endoscopy 7. Pain- tramadol and tylenol, gabapentin -lidoderm patch to sternum 8. DVT ppx- teds and on coumadin 9. Psych- cont zoloft for depression, seroquel prn insomnia and rozerem 10. Renal- hx of CKD monitor for NEHEMIAS 11. Dispo- TBD Allergies Coded Allergies: phenytoin (Verified Allergy, Mild, HAND SWELLING, 02/12/21) Vital Signs Vital Signs Date Time Temp Pulse Resp B/P (MAP) Pulse Ox O2 Delivery O2 Flow Rate FiO2 02/16/21 09:03 96 134/77 02/16/21 06:58 99 02/16/21 06:04 17 02/16/21 06:00 97.7 Room Air Laboratory Data CBC/BMP Laboratory Tests 02/15/21 10:02 02/16/21 07:12 Labs 24H Laboratory Tests 2 02/15/21 10:02: Nucleated Red Blood Cells % (auto) 0.0 02/15/21 11:37: Bedside Glucose (Misc Panel) 137H 02/15/21 16:29: Bedside Glucose (Misc Panel) 130H 02/16/21 07:08: Bedside Glucose (Misc Panel) 133H 02/16/21 07:12: Immature Granulocyte % (Auto) 0.4, Neutrophils (%) (Auto) 63.4, Lymphocytes (%) (Auto) 15.2L, Monocytes (%) (Auto) 8.3H, Eosinophils (%) (Auto) 11.4H, Basophils (%) (Auto) 1.3H, Neutrophils # (Auto) 3.4, Lymphocytes # (Auto) 0.8L, Monocytes # (Auto) 0.4, Eosinophils # (Auto) 0.6H, Basophils # (Auto) 0.1, Nucleated Red Blood Cells % (auto) 0.0, Prothrombin Time 26.7H, Prothromb Time International Ratio 2.42, Anion Gap 5L, Glomerular Filtration Rate 31.7L, Calcium Level 8.1L Microbiology Microbiology 02/14/21 Stool Occult Blood (NAVI) - Final, Complete Current Medications Current Medications Current Medications Medications (Trade) Dose Ordered Sig/Constantin Route PRN Reason Start Time Stop Time Status Last Admin Dose Admin Acetaminophen (Tylenol Tab) 1,000 mg TID PO 02/12/21 21:00 02/15/21 21:24 Al Hydrox/Mg Hydrox/Simethicone (Mylanta) 30 ml Q4HP PRN PO DYSPEPSIA 02/12/21 13:50 Aspirin (Ecotrin) 325 mg DAILY PO 02/13/21 09:00 02/16/21 09:01 Atorvastatin Calcium (Lipitor) 40 mg DAILY PO 02/13/21 09:00 02/16/21 09:02 Collagenase (SantyL) 1 dose BID TOP 02/14/21 09:00 02/15/21 21:28 Collagenase (SantyL) apply to abdominal surgi... BID TOP 02/14/21 21:00 UNV Cyanocobalamin (Vitamin B12) 500 mcg QAM PO 02/13/21 09:00 02/16/21 09:02 Dextrose (Dextrose 50%) 25 ml ASDIRECTED PRN IV SEE LABEL COMMENTS 02/12/21 13:50 Docusate Sodium (Colace) 100 mg BID PO 02/12/21 21:00 02/16/21 09:01 Ferrous Sulfate (Ferrous Sulfate) 325 mg DAILY PO 02/13/21 09:00 02/16/21 09:01 Gabapentin (Neurontin) 200 mg QHS PO 02/12/21 21:00 02/15/21 21:25 Glucagon (Glucagon) 1 mg ASDIRECTED PRN SC SEE LABEL COMMENTS 02/12/21 13:50 Glucose (Glucose) 16 GM ASDIRECTED PRN PO SEE LABEL COMMENTS 02/12/21 13:50 Home Med (Home Med List Complete!) ASDIRECTED XX 02/12/21 19:40 02/12/21 19:46 DC Insulin Human Lispro (HumaLOG INSULIN) SEE PROTOCOL TABLE AC SC 02/13/21 07:30 02/16/21 09:01 Insulin Human Lispro (HumaLOG INSULIN) SEE PROTOCOL TABLE QHS SC 02/12/21 21:00 Levothyroxine Sodium (Synthroid) 88 mcg DAILY@06 PO 02/13/21 06:00 02/16/21 05:31 Lidocaine (Lidoderm Patch) 1 patch DAILY TD 02/13/21 09:00 02/14/21 09:04 Lidocaine/ Diphenhydr/Alum/ Mg/Simeth (Magic Mouthwash) 5ML AC SSP 02/13/21 12:00 02/14/21 07:30 Metoprolol Succinate (TopROL XL) 25 mg BID PO 02/12/21 21:00 02/14/21 09:47 DC 02/14/21 09:06 Metoprolol Tartrate (Lopressor) 12.5 mg BID PO 02/14/21 21:00 02/16/21 09:03 Non-Formulary Medication ( See Comment Field Below ) REMOVE LIDODERM PATCH DAILY@21 XX 02/12/21 21:00 02/14/21 21:27 Nystatin (Mycostatin Powder, Nystop) abdominal folds, butto... BID TOP 02/12/21 21:00 02/15/21 07:50 Pantoprazole Sodium (Protonix) 40 mg BID PO 02/12/21 21:00 02/16/21 09:01 Quetiapine Fumarate (SEROquel) 25 mg QHS PRN PO insomnia 02/12/21 13:50 Ramelteon (Rozerem) 8 mg QHS PRN PO INSOMNIA 02/12/21 13:50 02/16/21 01:57 Senna (Senokot) 1 tab QHS PO 02/12/21 21:00 02/15/21 21:26 Sertraline HCl (Zoloft) 50 mg DAILY PO 02/13/21 09:00 02/16/21 09:01 Sucralfate (Carafate) 1 gm ACHS PO 02/13/21 12:00 02/16/21 09:01 Tramadol HCl (Ultram) 25 mg Q4HP PRN PO MODERATE PAIN (PS 5-7) 02/12/21 13:50 02/16/21 05:32 JOSE RAVI MD Feb 16, 2021 09:34
[2021-02-16] MEDS: SANTYL OINT 30GM TOP SCH ×2 (11:07→20:17)
[2021-02-16] MEDS ORDERED: WARFARIN SOD 5MG TAB PO ONE (17:00)
[2021-02-16 20:00] VITALS: BP 104/70
[2021-02-16] MEDS: GABAPENTIN 100 MG CAP PO SCH (20:13)
[2021-02-16] MEDS: SENNA 8.6 MG TAB (SENOKOT) PO SCH (20:15)
[2021-02-16] MEDS: **NOTE PATIENT COMMENT** MISC XX SCH (20:16)
[2021-02-17] MEDS: traMADol 50 MG TAB PO PRN ×3 (01:34→22:28)
[2021-02-17] MEDS: REMEDY PHYTOPLEX Z-GUARD PASTE 113GM TUBE (FROM STOREROOM PRODUCT) TOP SCH ×4 (05:07→20:08)
[2021-02-17] MEDS: LEVOTHYROXINE 88MCG TABLET (0.088 MG) PO SCH (05:16)
[2021-02-17 06:00] VITALS: BP 137/90
[2021-02-17 06:38] LABS: BASO # 0.1 10^3/uL (0.0-0.2); EOS # 0.6 10^3/uL (0.0-0.5); EOS % 11.9 % (0.0-3.0); HEMATOCRIT 31.7 % (36.0-47.0); HEMOGLOBIN 9.7 g/dl (12.0-15.5); LYMPH # 0.9 10^3/uL (1.5-5.0); LYMPH % 16.8 % (24.0-44.0); MEAN CORPUSCULAR HGB CONC 30.6 g/dl (32.0-36.5); MEAN CORPUSCULAR VOLUME 91.4 fl (80.0-96.0); MONO # 0.5 10^3/uL (0.0-0.8); MONO % 9.4 % (2.0-8.0); NEUTROPHILS # 3.1 10^3/uL (1.5-8.5); NEUTROPHILS % 60.7 % (36.0-66.0); PLATELET COUNT, AUTOMATED 317 10^3/uL (150-450); RED BLOOD COUNT 3.47 10^6/uL (4.00-5.40); WHITE BLOOD COUNT 5.1 10^3/uL (4.0-10.0)
[2021-02-17 06:49] LABS: INR 2.76; PROTHROMBIN TIME 29.5 SECONDS (12.7-14.5)
[2021-02-17] MEDS: MAGIC MOUTHWASH SUSPENSION BTL SSP SCH ×3 (07:30→17:00)
[2021-02-17] MEDS: ASPIRIN ENTERIC 325 MG TAB PO SCH (08:18)
[2021-02-17] MEDS: ATORVASTATIN 20 MG TAB PO SCH (08:19)
[2021-02-17] MEDS: DOCUSATE SODIUM 100MG CAPSULE PO SCH ×2 (08:19→20:07)
[2021-02-17] MEDS: PANTOPRAZOLE 40MG TAB (PROTONIX) PO SCH ×2 (08:19→20:07)
[2021-02-17] MEDS: FERROUS SULFATE 325MG TAB PO SCH (08:19)
[2021-02-17] MEDS: CYANOCOBALAMIN 500 MCG TAB PO SCH (08:19)
[2021-02-17] MEDS: SUCRALFATE 1 GM TAB PO SCH ×4 (08:19→20:06)
[2021-02-17] MEDS: ACETAMINOPHEN 500 MG TAB PO SCH ×3 (08:19→20:06)
[2021-02-17] MEDS: SERTRALINE HCL 50 MG TAB PO SCH (08:20)
[2021-02-17] MEDS: SANTYL OINT 30GM TOP SCH ×2 (08:20→20:08)
[2021-02-17] MEDS: LIDOCAINE 5% (LIDODERM) PATCH TD SCH (08:20)
[2021-02-17] MEDS: NYSTATIN 100,000 UNITS/GM TOPICAL PWD 15 GM TOP SCH ×2 (08:21→20:07)
[2021-02-17] MEDS: METOPROLOL TART 12.5 MG PER 1/2 TAB PO SCH (08:21)
--- NOTE | 2021-02-17 10:37 | REP ---
INDICATION: r/o pulmonary edema/infiltrate/effusion COMPARISON: None. TECHNIQUE: PA and lateral. FINDINGS: Cardiomegaly and chronic appearing interstitial changes noted. No obvious acute consolidation. No pneumothorax. Small layering effusion cannot be excluded. IMPRESSION: No focal consolidation. Cannot exclude small effusion. <Electronically signed by Rocky Meza > 02/17/21 [id number]
[2021-02-17] MEDS ORDERED: FUROSEMIDE 20MG/2ML VIAL (J1940) IV ONE (11:10)
[2021-02-17 11:20] LABS: CALCIUM LEVEL 7.9 MG/DL (8.8-10.2); CREATININE FOR GFR 1.37 MG/DL (0.55-1.30); GLOMERULAR FILTRATION RATE 40.9 (>45); POTASSIUM SERUM 4.1 MEQ/L (3.5-5.1)
[2021-02-17] MEDS ORDERED: METOPROLOL TART 25 MG TABLET PO ONE (11:30)
[2021-02-17 11:56] VITALS: BP 110/72
--- NOTE | 2021-02-17 11:58 | IPNPDOC ---
PM&R Progress Note DATE OF SERVICE: Feb 17, 2021 [employer]cher Progress Note Subjective: Patient stating she feels more short of breath today and did not do as well in therapy as she would have liked to. She denies chest pain or cough. REVIEW OF SYSTEMS: The following is a completed review of systems and has been reviewed. Review of systems otherwise unremarkable. PAIN: Patient self reports no pain EYES: No recent vision changes EARS, NOSE, & THROAT: No throat pain, + dysphagia CARDIOVASCULAR: Denies chest pain or palpitations PULMONARY: + shortness of breath GASTROINTESTINAL: Denies constipation/diarrhea, +black stools GENITOURINARY: denies dysuria MUSCULOSKELETAL:generalized weakness, right foot drop NEUROLOGICAL: +bilat feet paresthesias HEMATOLOGICAL: +anemia SKIN: +sternal and abdominal incision PSYCHIATRIC: Unremarkable All other review of systems found to be negative. PHYSICAL EXAMINATION: VITAL SIGNS: Please see below. GENERAL: Pleasant and cooperative. No acute distress. HEENT: PERRL. Extraocular movements intact. Clear conjunctiva, poor dentition CARDIOVASCULAR: Irregular rate and rhythm. No murmurs, rubs, or gallops LUNGS: Clear to auscultation bilaterally. No wheezes. No rhonchi ABDOMEN: Soft, nontender, mildly distended, Positive bowel sounds. Normal active bowel sounds NEUROLOGICAL: Alert and oriented times three. Cranial nerves II through XII grossly intact. Sensation grossly intact right ankle (no clonus/babinski) EXTREMITIES: 5\5 strength bilateral upper extremities. 5\5 strength right hip flexion and knee extension, 1/5 right ankle DF/EHL and plantar flexion. 5/5 s trength in left lower extremity. SKIN: sternal incision c/d/i, pacemaker incision c/d/i -abdominal incisions with 5 exudative ulcers ASSESSMENT:65-year-old F with past medical history of prior aortic valve repair who presents status post re-do aortic valve replacement and mitral valve replacement PLAN: 1. Rehab- PT/OT advance mobility and ADLs, strengthen/stretch/maintain ROM all 4 limbs, ambulating with RW -RAIL SIGNAL MECHANIC for dysphagia work-up, magic mouth wash for optimal oral care, level 3 diet per RAIL SIGNAL MECHANIC eval 2. Cardiac- s/p aortic valve and mitral mechanical valve replacement and pacemaker placement on Coumadin with goal INR 2.5-3.5, additionally patient is on 325mg daily, cont beta-apoorva- sternal and pacemaker precautions, avoid driving for 6 months -EKG ordered today as patient noted to have irregular HR and has been tachycardic, confirmed +Afib with RVR, discussed case with medicine who will determine how to proceed, patient on low dose beta-apoorva, but due to some soft BPs cannot maximize this med -Acute CHF exacerbation- patient noted in therapy to be more short of breath, +weight gain, BNP elevated to 7k, CXR cannot exclude effusion, one time dose of IV lasix ordered, hospitalist aware and will manage acute CHF exacerbation- HOB 30 degrees -HLD cont statin -medicine consulted to assist in overall management -f/u cardiac surgeon 03-26-21 , will need repeat CXR prior -EP Dr. Otto [phone] 3. Neuro- patient reporting right foot drop since her surgery, on exam she has both dorsiflexion and plantar flexion weakness with decreased sensation on the dorsal and plantar surface of her right foot- suspect this is a sciatic nerve injury involving both peroneal and tibial nerves from compression at the level of the buttock region- patient reports that when her legs are hanging off the chair her feet go numb, patient instructed to no longer let her legs hang off the chair and to keep them elevated to alleviate pressure on sciatic nerve, low suspicion for multilevel spine root compression as patient denies back pain -could be a lumbosacral plexopathy injury, retroperitoneal hematoma ruled out via CT non-contrast 02-14-21 -will refer to neurology for NCS/EMG on d/c -consult placed with produce associate for AFO 3. Resp- monitor for infection 4. Endo- hx of hypothyroidism, cont synthroid -will d/c insulin sliding scale in place and monitor finger sticks BID, thus far well controlled -recent A1C f 7.1%, will monitor FS while here and avoid metformin given CKD, consistent carb diet 5. Heme- anemia with Hgb 7.7% on 02-13-21 s/p 2 units rbcs, patient does have +FOBT will moitor H/H and cont iron supplements 6. GI- + GI bleed (+FOBT) while on Coumadin and ASA 325mg daily , cont protonix 40mg BID and sucralfate, cont to monitor H/H which is relatively stable post transfusion, however if drops will get surgical consult for possible endoscopy 7. Pain- tramadol and tylenol, gabapentin -lidoderm patch to sternum 8. DVT ppx- teds and on coumadin 9. Psych- cont zoloft for depression, seroquel prn insomnia and rozerem 10. Renal- hx of CKD monitor for NEHEMIAS 11. Dispo- TBD Allergies Coded Allergies: phenytoin (Verified Allergy, Mild, HAND SWELLING, 02/12/21) Vital Signs Vital Signs Date Time Temp Pulse Resp B/P (MAP) Pulse Ox O2 Delivery O2 Flow Rate FiO2 02/17/21 08:21 115 137/90 02/17/21 06:20 18 Room Air 02/17/21 06:00 97.5 99 Laboratory Data CBC/BMP Laboratory Tests 02/17/21 06:21 02/17/21 06:24 Labs 24H Laboratory Tests 2 02/16/21 16:56: Bedside Glucose (Misc Panel) 138H 02/17/21 05:53: Bedside Glucose (Misc Panel) 129H 02/17/21 06:21: Anion Gap 4L, Glomerular Filtration Rate 40.9L, Calcium Level 7.9L, NJ-Ejq-[id number]-Type Natriuretic Peptide 7443H 02/17/21 06:24: Immature Granulocyte % (Auto) 0.2, Neutrophils (%) (Auto) 60.7, Lymphocytes (%) (Auto) 16.8L, Monocytes (%) (Auto) 9.4H, Eosinophils (%) (Auto) 11.9H, Basophils (%) (Auto) 1.0, Neutrophils # (Auto) 3.1, Lymphocytes # (Auto) 0.9L, Monocytes # (Auto) 0.5, Eosinophils # (Auto) 0.6H, Basophils # (Auto) 0.1, Nucleated Red Blood Cells % (auto) 0.0, Prothrombin Time 29.5H, Prothromb Time International Ratio 2.76 02/17/21 11:37: Bedside Glucose (Misc Panel) 105 Microbiology Microbiology 02/14/21 Stool Occult Blood (NAVI) - Final, Complete Current Medications Current Medications Current Medications Medications (Trade) Dose Ordered Sig/Constantin Route PRN Reason Start Time Stop Time Status Last Admin Dose Admin Acetaminophen (Tylenol Tab) 1,000 mg TID PO 02/12/21 21:00 02/17/21 08:19 Al Hydrox/Mg Hydrox/Simethicone (Mylanta) 30 ml Q4HP PRN PO DYSPEPSIA 02/12/21 13:50 Aspirin (Ecotrin) 325 mg DAILY PO 02/13/21 09:00 02/17/21 08:18 Atorvastatin Calcium (Lipitor) 40 mg DAILY PO 02/13/21 09:00 02/17/21 08:19 Collagenase (SantyL) 1 dose BID TOP 02/14/21 09:00 02/17/21 08:20 Collagenase (SantyL) apply to abdominal surgi... BID TOP 02/14/21 21:00 UNV Cyanocobalamin (Vitamin B12) 500 mcg QAM PO 02/13/21 09:00 02/17/21 08:19 Dextrose (Dextrose 50%) 25 ml ASDIRECTED PRN IV SEE LABEL COMMENTS 02/12/21 13:50 Docusate Sodium (Colace) 100 mg BID PO 02/12/21 21:00 02/16/21 09:01 Ferrous Sulfate (Ferrous Sulfate) 325 mg DAILY PO 02/13/21 09:00 02/17/21 08:19 Gabapentin (Neurontin) 200 mg QHS PO 02/12/21 21:00 02/16/21 20:13 Glucagon (Glucagon) 1 mg ASDIRECTED PRN SC SEE LABEL COMMENTS 02/12/21 13:50 Glucose (Glucose) 16 GM ASDIRECTED PRN PO SEE LABEL COMMENTS 02/12/21 13:50 Home Med (Home Med List Complete!) ASDIRECTED XX 02/12/21 19:40 02/12/21 19:46 DC Insulin Human Lispro (HumaLOG INSULIN) SEE PROTOCOL TABLE AC SC 02/13/21 07:30 02/16/21 11:51 DC 02/16/21 09:01 Insulin Human Lispro (HumaLOG INSULIN) SEE PROTOCOL TABLE QHS SC 02/12/21 21:00 02/16/21 11:51 DC Levothyroxine Sodium (Synthroid) 88 mcg DAILY@06 PO 02/13/21 06:00 02/17/21 05:16 Lidocaine (Lidoderm Patch) 1 patch DAILY TD 02/13/21 09:00 02/14/21 09:04 Lidocaine/ Diphenhydr/Alum/ Mg/Simeth (Magic Mouthwash) 5ML AC SSP 02/13/21 12:00 02/14/21 07:30 Metoprolol Succinate (TopROL XL) 25 mg BID PO 02/12/21 21:00 02/14/21 09:47 DC 02/14/21 09:06 Metoprolol Tartrate (Lopressor) 12.5 mg BID PO 02/14/21 21:00 02/17/21 11:28 DC 02/17/21 08:21 Metoprolol Tartrate (Lopressor) 25 mg BID PO 02/17/21 21:00 UNV Non-Formulary Medication ( See Comment Field Below ) REMOVE LIDODERM PATCH DAILY@ XX 02/12/21 21:00 02/14/21 21:27 Nystatin (Mycostatin Powder, Nystop) abdominal folds, butto... BID TOP 02/12/21 21:00 02/15/21 07:50 Pantoprazole Sodium (Protonix) 40 mg BID PO 02/12/21 21:00 02/17/21 08:19 Quetiapine Fumarate (SEROquel) 25 mg QHS PRN PO insomnia 02/12/21 13:50 Ramelteon (Rozerem) 8 mg QHS PRN PO INSOMNIA 02/12/21 13:50 02/16/21 20:13 Senna (Senokot) 1 tab QHS PO 02/12/21 21:00 02/15/21 21:26 Sertraline HCl (Zoloft) 50 mg DAILY PO 02/13/21 09:00 02/17/21 08:20 Sucralfate (Carafate) 1 gm ACHS PO 02/13/21 12:00 02/17/21 08:19 Tramadol HCl (Ultram) 25 mg Q4HP PRN PO MODERATE PAIN (PS 5-7) 02/12/21 13:50 02/17/21 05:50 Warfarin Sodium (Coumadin) 5 mg DAILY@17 PO 02/17/21 17:00 JOSE RAVI MD Feb 17, 2021 11:58
[2021-02-17 13:51] LABS: THYROID STIMULATING HORMONE 18.4 uIU/ML (0.358-3.740)
[2021-02-17 14:00] VITALS: BP 110/58
[2021-02-17] MEDS ORDERED: WARFARIN SOD 5MG TAB PO SCH (17:00)
[2021-02-17 20:00] VITALS: BP 122/77
--- NOTE | 2021-02-17 20:02 | ECGEPIP ---
[facility] Test Date: 2021-02-17 Pat Name: YNES RICHARDSON Department: Room: [place] [address] Gender: Female Mental Telepathist: viviana : 1955 Requested By: JOSE RAVI Order Number: [id number] Reading MD: Josh Kelly Measurements Intervals [place] Rate: 109 P: TX: QRS: 47 QRSD: 164 T: 224 QT: 414 QTc: 557 Interpretive Statements Atrial fibrillation with rapid ventricular response Left bundle branch block Prolonged QTc interval Comparison tracing not on file Electronically Signed on 02-17-2021 20:01:45 EDT by Josh Kelly
[2021-02-17] MEDS: RAMELTEON 8 MG TAB (ROZEREM) PO PRN (20:05)
[2021-02-17] MEDS: GABAPENTIN 100 MG CAP PO SCH (20:06)
[2021-02-17] MEDS: SENNA 8.6 MG TAB (SENOKOT) PO SCH (20:07)
[2021-02-17] MEDS: METOPROLOL TART 25 MG TABLET PO SCH (20:07)
[2021-02-17] MEDS: **NOTE PATIENT COMMENT** MISC XX SCH (20:07)
[2021-02-18] MEDS: QUEtiapine FUMARATE 25 MG TAB PO PRN (00:02)
[2021-02-18] MEDS: REMEDY PHYTOPLEX Z-GUARD PASTE 113GM TUBE (FROM STOREROOM PRODUCT) TOP SCH ×4 (04:51→20:35)
[2021-02-18] MEDS: LEVOTHYROXINE 88MCG TABLET (0.088 MG) PO SCH (05:31)
[2021-02-18] MEDS: traMADol 50 MG TAB PO PRN ×2 (05:32→20:33)
[2021-02-18 06:00] VITALS: BP 134/92
[2021-02-18 06:39] LABS: INR 3.16; PROTHROMBIN TIME 32.7 SECONDS (12.7-14.5)
[2021-02-18 06:56] LABS: CALCIUM LEVEL 7.9 MG/DL (8.8-10.2); CREATININE FOR GFR 1.36 MG/DL (0.55-1.30); GLOMERULAR FILTRATION RATE 41.3 (>45); POTASSIUM SERUM 3.8 MEQ/L (3.5-5.1)
[2021-02-18] MEDS: MAGIC MOUTHWASH SUSPENSION BTL SSP SCH ×3 (07:30→16:41)
[2021-02-18] MEDS: PANTOPRAZOLE 40MG TAB (PROTONIX) PO SCH ×2 (07:40→20:32)
[2021-02-18] MEDS: FERROUS SULFATE 325MG TAB PO SCH (07:40)
[2021-02-18] MEDS: DOCUSATE SODIUM 100MG CAPSULE PO SCH ×2 (07:40→20:34)
[2021-02-18] MEDS: SUCRALFATE 1 GM TAB PO SCH ×4 (07:40→20:32)
[2021-02-18] MEDS: ATORVASTATIN 20 MG TAB PO SCH (07:40)
[2021-02-18] MEDS: SERTRALINE HCL 50 MG TAB PO SCH (07:40)
[2021-02-18] MEDS: ASPIRIN ENTERIC 325 MG TAB PO SCH (07:41)
[2021-02-18] MEDS: LIDOCAINE 5% (LIDODERM) PATCH TD SCH (07:41)
[2021-02-18] MEDS: ACETAMINOPHEN 500 MG TAB PO SCH ×3 (07:41→20:34)
[2021-02-18] MEDS: CYANOCOBALAMIN 500 MCG TAB PO SCH (07:41)
[2021-02-18] MEDS: METOPROLOL TART 25 MG TABLET PO SCH (07:42)
[2021-02-18] MEDS: SANTYL OINT 30GM TOP SCH ×2 (07:42→20:41)
[2021-02-18] MEDS: NYSTATIN 100,000 UNITS/GM TOPICAL PWD 15 GM TOP SCH ×2 (07:42→20:35)
[2021-02-18] MEDS ORDERED: METOPROLOL SUCC (TopROL XL) 100MG *XL* TAB PO SCH (09:00)
--- NOTE | 2021-02-18 10:06 | IPNPDOC ---
PM&R Progress Note DATE OF SERVICE: Feb 18, 2021 [facility] Progress Note Subjective: Patient stating she still feels a little short of breath, but that it is better since taking lasix. REVIEW OF SYSTEMS: The following is a completed review of systems and has been reviewed. Review of systems otherwise unremarkable. PAIN: Patient self reports no pain EYES: No recent vision changes EARS, NOSE, & THROAT: No throat pain, + dysphagia CARDIOVASCULAR: Denies chest pain or palpitations PULMONARY: + shortness of breath GASTROINTESTINAL: Denies constipation/diarrhea, +black stools GENITOURINARY: denies dysuria MUSCULOSKELETAL:generalized weakness, right foot drop NEUROLOGICAL: +bilat feet paresthesias HEMATOLOGICAL: +anemia SKIN: +sternal and abdominal incision PSYCHIATRIC: Unremarkable All other review of systems found to be negative. PHYSICAL EXAMINATION: VITAL SIGNS: Please see below. GENERAL: Pleasant and cooperative. No acute distress. HEENT: PERRL. Extraocular movements intact. Clear conjunctiva, poor dentition CARDIOVASCULAR: Irregular rate and rhythm. No murmurs, rubs, or gallops LUNGS: Clear to auscultation bilaterally. No wheezes. No rhonchi ABDOMEN: Soft, nontender, mildly distended, Positive bowel sounds. Normal active bowel sounds NEUROLOGICAL: Alert and oriented times three. Cranial nerves II through XII grossly intact. Sensation grossly intact right ankle (no clonus/babinski) EXTREMITIES: 5\5 strength bilateral upper extremities. 5\5 strength right hip flexion and knee extension, 1/5 right ankle DF/EHL and plantar flexion. 5/5 strength in left lower extremity. SKIN: sternal incision c/d/i, pacemaker incision c/d/i -abdominal incisions with 5 exudative ulcers ASSESSMENT:65-year-old F with past medical history of prior aortic valve repair who presents status post re-do aortic valve replacement and mitral valve replacement PLAN: 1. Rehab- PT/OT advance mobility and ADLs, strengthen/stretch/maintain ROM all 4 limbs, ambulating with RW -MARINE PIPEFITTER for dysphagia work-up, magic mouth wash for optimal oral care, level 3 diet per MARINE PIPEFITTER eval 2. Cardiac- s/p aortic valve and mitral mechanical valve replacement and pacemaker placement on Coumadin with goal INR 2.5-3.5, additionally patient is on cont beta-apoorva- sternal and pacemaker precautions, avoid driving for 6 months -EKG ordered 02-17-21 as patient noted to have irregular HR and has been tachycardic, confirmed +Afib with RVR, discussed case with medicine on how to proceed, patient has been on low short acting dose beta-apoorva, but due to some soft BPs difficult maximize this med- called Dr. Santo who gave informal consult over the phone and he recommended switching to Toprol 100mg daily with holding parameters and to give a one time dose of digoxin 0.25mg- hospitalist made aware of this plan and is in agreement -Acute CHF exacerbation- patient noted in therapy to be more short of breath, +w eight gain, BNP elevated to 7k, CXR cannot exclude effusion, one time dose of IV lasix ordered after which patient says she felt better, hospitalist aware, will ask renal to assist with fluid management -HLD cont statin -medicine consulted to assist in overall management -need f/u cardiac surgeon and EP 3. Neuro- patient reporting right foot drop since her surgery, on exam she has both dorsiflexion and plantar flexion weakness with decreased sensation on the dorsal and plantar surface of her right foot- suspect this is a sciatic nerve injury involving both peroneal and tibial nerves from compression at the level of the buttock region- patient reports that when her legs are hanging off the chair her feet go numb, patient instructed to no longer let her legs hang off the chair and to keep them elevated to alleviate pressure on sciatic nerve, low suspicion for multilevel spine root compression as patient denies back pain -could be a lumbosacral plexopathy injury, retroperitoneal hematoma ruled out via CT non-contrast 02-14-21 -will refer to neurology for NCS/EMG on d/c -consult placed with finish production manager for AFO 3. Resp- monitor for infection 4. Endo- hx of hypothyroidism, cont synthroid -will d/c insulin sliding scale in place and monitor finger sticks BID, thus far well controlled -recent A1C f 7.1%, will monitor FS while here and avoid metformin given CKD, consistent carb diet 5. Heme- anemia with Hgb 7.7% on 02-13-21 s/p 2 units rbcs, patient does have +FOBT will moitor H/H and cont iron supplements 6. GI- + GI bleed (+FOBT) while on Coumadin and ASA 325mg daily , cont protonix 40mg BID and sucralfate, cont to monitor H/H which is relatively stable post transfusion, however if drops will get surgical consult for possible endoscopy, on 02-18-21 called cardiac surgeon, Dr. Crews's office and spoke with his MEDICAL STAFF SERVICES COORDINATOR Olga who said it ok to take patient on aspirin entirely given GI bleed, recs appreciated 7. Pain- tramadol and tylenol, gabapentin -lidoderm patch to sternum 8. DVT ppx- teds and on coumadin 9. Psych- cont zoloft for depression, seroquel prn insomnia and rozerem 10. Renal- hx of CKD monitor for NEHEMIAS, renal consulted for fluid management 11. Dispo- TBD Allergies Coded Allergies: phenytoin (Verified Allergy, Mild, HAND SWELLING, 02/12/21) Vital Signs Vital Signs Date Time Temp Pulse Resp B/P (MAP) Pulse Ox O2 Delivery O2 Flow Rate FiO2 02/18/21 07:42 114 134/92 02/18/21 06:13 18 Room Air 02/18/21 06:00 97.3 99 Laboratory Data CBC/BMP Laboratory Tests 02/18/21 05:56 Labs 24H Laboratory Tests 2 02/17/21 11:37: Bedside Glucose (Misc Panel) 105 02/17/21 16:39: Bedside Glucose (Misc Panel) 134H 02/18/21 05:26: Bedside Glucose (Misc Panel) 126H 02/18/21 05:56: Prothrombin Time 32.7H, Prothromb Time International Ratio 3.16, Anion Gap 6L, Glomerular Filtration Rate 41.3L, Calcium Level 7.9L Microbiology Microbiology 02/14/21 Stool Occult Blood (NAVI) - Final, Complete Current Medications Current Medications Current Medications Medications (Trade) Dose Ordered Sig/Constantin Route PRN Reason Start Time Stop Time Status Last Admin Dose Admin Acetaminophen (Tylenol Tab) 1,000 mg TID PO 02/12/21 21:00 02/18/21 07:41 Al Hydrox/Mg Hydrox/Simethicone (Mylanta) 30 ml Q4HP PRN PO DYSPEPSIA 02/12/21 13:50 Aspirin (Ecotrin) 325 mg DAILY PO 02/13/21 09:00 02/18/21 07:41 Atorvastatin Calcium (Lipitor) 40 mg DAILY PO 02/13/21 09:00 02/18/21 07:40 Collagenase (SantyL) 1 dose BID TOP 02/14/21 09:00 02/18/21 07:42 Collagenase (SantyL) apply to abdominal surgi... BID TOP 02/14/21 21:00 UNV Cyanocobalamin (Vitamin B12) 500 mcg QAM PO 02/13/21 09:00 02/18/21 07:41 Dextrose (Dextrose 50%) 25 ml ASDIRECTED PRN IV SEE LABEL COMMENTS 02/12/21 13:50 Docusate Sodium (Colace) 100 mg BID PO 02/12/21 21:00 02/16/21 09:01 Ferrous Sulfate (Ferrous Sulfate) 325 mg DAILY PO 02/13/21 09:00 02/18/21 07:40 Gabapentin (Neurontin) 200 mg QHS PO 02/12/21 21:00 02/17/21 20:06 Glucagon (Glucagon) 1 mg ASDIRECTED PRN SC SEE LABEL COMMENTS 02/12/21 13:50 Glucose (Glucose) 16 GM ASDIRECTED PRN PO SEE LABEL COMMENTS 02/12/21 13:50 Home Med (Home Med List Complete!) ASDIRECTED XX 02/12/21 19:40 02/12/21 19:46 DC Insulin Human Lispro (HumaLOG INSULIN) SEE PROTOCOL TABLE AC SC 02/13/21 07:30 02/16/21 11:51 DC 02/16/21 09:01 Insulin Human Lispro (HumaLOG INSULIN) SEE PROTOCOL TABLE QHS SC 02/12/21 21:00 02/16/21 11:51 DC Levothyroxine Sodium (Synthroid) 88 mcg DAILY@06 PO 02/13/21 06:00 02/18/21 05:31 Lidocaine (Lidoderm Patch) 1 patch DAILY TD 02/13/21 09:00 02/14/21 09:04 Lidocaine/ Diphenhydr/Alum/ Mg/Simeth (Magic Mouthwash) 5ML AC SSP 02/13/21 12:00 02/14/21 07:30 Metoprolol Succinate (TopROL XL) 25 mg BID PO 02/12/21 21:00 02/14/21 09:47 DC 02/14/21 09:06 Metoprolol Tartrate (Lopressor) 12.5 mg BID PO 02/14/21 21:00 02/17/21 11:28 DC 02/17/21 08:21 Metoprolol Tartrate (Lopressor) 25 mg BID PO 02/17/21 21:00 02/18/21 07:42 Non-Formulary Medication ( See Comment Field Below ) REMOVE LIDODERM PATCH DAILY@21 XX 02/12/21 21:00 02/14/21 21:27 Nystatin (Mycostatin Powder, Nystop) abdominal folds, butto... BID TOP 02/12/21 21:00 02/15/21 07:50 Pantoprazole Sodium (Protonix) 40 mg BID PO 02/12/21 21:00 02/18/21 07:40 Quetiapine Fumarate (SEROquel) 25 mg QHS PRN PO insomnia 02/12/21 13:50 02/18/21 00:02 Ramelteon (Rozerem) 8 mg QHS PRN PO INSOMNIA 02/12/21 13:50 02/17/21 20:05 Senna (Senokot) 1 tab QHS PO 02/12/21 21:00 02/15/21 21:26 Sertraline HCl (Zoloft) 50 mg DAILY PO 02/13/21 09:00 02/18/21 07:40 Sucralfate (Carafate) 1 gm ACHS PO 02/13/21 12:00 02/18/21 07:40 Tramadol HCl (Ultram) 25 mg Q4HP PRN PO MODERATE PAIN (PS 5-7) 02/12/21 13:50 02/18/21 05:32 Warfarin Sodium (Coumadin) 5 mg DAILY@17 PO 02/17/21 17:00 02/17/21 16:59 JOSE RAVI MD Feb 18, 2021 10:06
[2021-02-18] MEDS ORDERED: DIGOXIN 0.25 MG TAB PO ONE (10:35)
[2021-02-18 10:44] VITALS: BP 110/55
--- NOTE | 2021-02-18 12:22 | CR ---
NEPHROLOGY CONSULTATION DATE: 02/18/2021 REASONS FOR CONSULTATION: 1. Congestive heart failure. 2. Chronic kidney disease. HISTORY OF PRESENT ILLNESS: Ms. Vega is a 65-year-old female who was admitted to the [facility] for rehab following her cardiac surgery. She underwent aortic and mitral valve replacement and pacemaker placement. Patient also had atrial fibrillation and was short of breath yesterday. She was given 1 dose of Lasix 20 mg. She is known to have stage 3 to stage 4 chronic kidney disease and follows with Dr. Mynor pelaez in [place]. PAST MEDICAL HISTORY: Significant for: 1. Hypertension. 2. Hyperlipidemia. 3. Chronic kidney disease. 4. Hypothyroidism. 5. Obesity. 6. History of valvular heart disease status post aortic and mitral valve replacements. 7. History of vulvar cancer. PAST SURGICAL HISTORY: Significant for: 1. Placement of mechanical mitral and aortic valves on January 22. 2. Pacemaker placement on January 27. 3. History of prior aortic valve replacement in 2007. 4. History of tubal ligation. 5. Partial vulvectomy. 6. Cleft lip with surgery probably in her infancy. FAMILY HISTORY: Noncontributory for this admission. Her mother had rheumatic heart disease and required multiple surgeries. Her sister also had some cardiac surgery. PERSONAL AND SOCIAL HISTORY: Patient lives in [place], [place]. 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 She does not smoke and very rarely drinks any alcohol. ALLERGIES: She has allergy to PHENYTOIN. MEDICATIONS: Home medications include: 1. Aspirin 325 mg daily. 2. Atorvastatin 40 mg daily. 3. Ferrous sulfate 324 mg daily. 4. Gabapentin 200 mg at bedtime. 5. Humulin R insulin at bedtime. 6. Admelog insulin per sliding scale. 7. Levothyroxine 88 mcg daily. 8. Melatonin 5 mg at bedtime. 9. Metoprolol 25 mg twice a day. 10. Omeprazole 20 mg daily. 11. Sertraline 50 mg daily. 12. Warfarin 1 mg daily. She is also on: 13. Tramadol as needed. 14. Tylenol as needed. 15. Seroquel as needed REVIEW OF SYSTEMS: At present patient denies any headache, dizziness or lightheadedness. Ears, nose and throat: Unremarkable. Cardiovascular system: Significant for severe aortic stenosis status post aortic valve replacement. She also had severe mitral valve stenosis status post mitral valve replacement. She denies any chest pain, dyspnea or leg edema at present. Respiratory system: Negative for cough or hemoptysis. GI system: Negative for nausea, vomiting or diarrhea. system: No dysuria or hematuria. Endocrine system: Significant for diabetes, but she does have history of hypothyroidism. Psychosocial system: Negative for depression/anxiety. Neurological system: Negative for seizures or stroke. PHYSICAL EXAMINATION: Temperature 97.3 degrees Fahrenheit, heart rate 82 per minute and respiratory rate 18 per minute. Blood pressure 110/55 mmHg and oxygen saturation 99%. Head: Atraumatic. She has a cleft lip. Neck: Supple and without JVD or thyroid enlargement. Heart: Sounds are irregular and mechanical valve sounds are present. Lungs: Clear to auscultation bilaterally. Abdomen: Soft and nontender and bowel sounds are normal. Extremities: Without any cyanosis or clubbing. She does not have any peripheral edema. Neurologically: She is awake, alert and oriented times 3. LABORATORY DATA: Sodium 140, potassium 3.8, chloride 111, CO2 23, BUN 17, creatinine 1.36, glucose 129, calcium 7.9. Yesterday her BNP level was 7443 and TSH level was 18.4. Hemoglobin on admission was 7.7 and she did receive some transfusion. Today her hemoglobin is 9.7 and hematocrit 31.7. PROBLEMS AND PLAN: 1. Congestive heart failure: Probably she had a mild episode of congestive heart failure. At present clinically she looks quite compensated. Atrial fibrillation can certainly contribute to her congestive heart failure. At present I am going to watch her for the next 24 hours and then consider a low dose diuretic if needed. I think it will be probably more appropriate to use a diuretic only on an as needed basis. 2. Chronic kidney disease: Patient has known history of stage 3 chronic kidney disease at baseline. Her kidney function is stable and electrolytes are within normal range. 3. Anemia: Patient had valvular heart surgery which contributed to her anemia. She has been transfused and anemia has improved. 4. Hypothyroidism: Yesterday her TSH level was 18.4. I would recommend adjustment in her levothyroxine dose. Thank you for involving me in the care of Ms. Vega. I will follow her along with you.
[2021-02-18 13:14] LABS: FREE T4 0.59 NG/DL (0.76-1.46)
[2021-02-18 13:24] VITALS: BP 115/68
[2021-02-18] MEDS: METOPROLOL SUCC *XL* 25MG TAB (TopROL *XL*) PO SCH (13:26)
[2021-02-18] MEDS ORDERED: WARFARIN SOD 2.5MG TAB PO SCH (17:00)
[2021-02-18] MEDS ORDERED: WARFARIN SOD 1MG TAB PO SCH (17:00)
[2021-02-18 20:00] VITALS: BP 139/76
[2021-02-18] MEDS: GABAPENTIN 100 MG CAP PO SCH (20:32)
[2021-02-18] MEDS: SENNA 8.6 MG TAB (SENOKOT) PO SCH (20:35)
[2021-02-18] MEDS: **NOTE PATIENT COMMENT** MISC XX SCH (20:35)
[2021-02-18] MEDS: RAMELTEON 8 MG TAB (ROZEREM) PO PRN (20:38)
[2021-02-19] MEDS: traMADol 50 MG TAB PO PRN ×2 (00:42→05:50)
[2021-02-19] MEDS: QUEtiapine FUMARATE 25 MG TAB PO PRN ×2 (00:49→21:35)
[2021-02-19] MEDS: REMEDY PHYTOPLEX Z-GUARD PASTE 113GM TUBE (FROM STOREROOM PRODUCT) TOP SCH ×4 (05:50→21:42)
[2021-02-19 06:00] VITALS: BP 113/71
[2021-02-19] MEDS ORDERED: LEVOTHYROXINE 100MCG TABLET (0.1MG) PO SCH (06:00)
[2021-02-19] MEDS: MAGIC MOUTHWASH SUSPENSION BTL SSP SCH ×3 (07:30→16:21)
[2021-02-19] MEDS: ATORVASTATIN 20 MG TAB PO SCH (08:11)
[2021-02-19] MEDS: ACETAMINOPHEN 500 MG TAB PO SCH ×3 (08:11→21:40)
[2021-02-19] MEDS: PANTOPRAZOLE 40MG TAB (PROTONIX) PO SCH ×2 (08:11→21:35)
[2021-02-19] MEDS: CYANOCOBALAMIN 500 MCG TAB PO SCH (08:11)
[2021-02-19] MEDS: SUCRALFATE 1 GM TAB PO SCH ×4 (08:11→21:35)
[2021-02-19] MEDS: DOCUSATE SODIUM 100MG CAPSULE PO SCH ×2 (08:14→21:35)
[2021-02-19] MEDS: FERROUS SULFATE 325MG TAB PO SCH (08:14)
[2021-02-19] MEDS: METOPROLOL SUCC *XL* 25MG TAB (TopROL *XL*) PO SCH (08:14)
[2021-02-19] MEDS: SERTRALINE HCL 50 MG TAB PO SCH (08:14)
[2021-02-19] MEDS: LIDOCAINE 5% (LIDODERM) PATCH TD SCH ×2 (08:15→14:30)
[2021-02-19] MEDS: SANTYL OINT 30GM TOP SCH ×2 (08:15→21:41)
[2021-02-19] MEDS: NYSTATIN 100,000 UNITS/GM TOPICAL PWD 15 GM TOP SCH ×2 (08:16→21:00)
--- NOTE | 2021-02-19 09:47 | IPNPDOC ---
PM&R Progress Note DATE OF SERVICE: Feb 19, 2021 [employer] Consultant Progress Note Subjective: Patient stating she feels short of breath, but that she has always felt short of breath and that it comes and goes. She says she is not able to move as well in therapy due to breathing. REVIEW OF SYSTEMS: The following is a completed review of systems and has been reviewed. Review of systems otherwise unremarkable. PAIN: Patient self reports no pain EYES: No recent vision changes EARS, NOSE, & THROAT: No throat pain, + dysphagia CARDIOVASCULAR: Denies chest pain or palpitations PULMONARY: + shortness of breath GASTROINTESTINAL: Denies constipation/diarrhea, +black stools GENITOURINARY: denies dysuria MUSCULOSKELETAL:generalized weakness, right foot drop NEUROLOGICAL: +bilat feet paresthesias HEMATOLOGICAL: +anemia SKIN: +sternal and abdominal incision PSYCHIATRIC: Unremarkable All other review of systems found to be negative. PHYSICAL EXAMINATION: VITAL SIGNS: Please see below. GENERAL: Pleasant and cooperative. No acute distress. HEENT: PERRL. Extraocular movements intact. Clear conjunctiva, poor dentition CARDIOVASCULAR: Irregular rate and rhythm. No murmurs, rubs, or gallops LUNGS: Clear to auscultation bilaterally. No wheezes. No rhonchi ABDOMEN: Soft, nontender, mildly distended, Positive bowel sounds. Normal active bowel sounds NEUROLOGICAL: Alert and oriented times three. Cranial nerves II through XII grossly intact. Sensation grossly intact right ankle (no clonus/babinski) EXTREMITIES: 5\5 strength bilateral upper extremities. 5\5 strength right hip flexion and knee extension, 1/5 right ankle DF/EHL and plantar flexion. 5/5 strength in left lower extremity. SKIN: sternal incision c/d/i, pacemaker incision c/d/i -abdominal incisions with 5 exudative ulcers ASSESSMENT:65-year-old F with past medical history of prior aortic valve repair who presents status post re-do aortic valve replacement and mitral valve replacement PLAN: 1. Rehab- PT/OT advance mobility and ADLs, strengthen/stretch/maintain ROM all 4 limbs, ambulating with RW -[employer]ING [employer] for dysphagia work-up, magic mouth wash for optimal oral care, upgraded to level 4 diet per P[employer]ING [employer]OR eval 2. Cardiac- s/p aortic valve and mitral mechanical valve replacement and pacemaker placement on Coumadin, given known GI bleed discussed narrowing INR goal to 2.5-3, cont beta-apoorva- sternal and pacemaker precautions, avoid driving for 6 months -EKG ordered 02-17-21 as patient noted to have irregular HR and has been tachycardic, confirmed +Afib with RVR, discussed case with medicine on how to proceed, patient has been on low short acting dose beta-apoorva, but due to some soft BPs difficult maximize this med- called Dr. Santo 02-18-21 who gave informal consult over the phone and he recommended switching to Toprol daily with holding parameters and to give a one time dose of digoxin 0.25mg- hospitalist made aware of this plan and is in agreement -Acute CHF exacerbation 02-17-21 patient noted in therapy to be more short of breath, +weight gain, BNP elevated to 7k, CXR cannot exclude effusion, one time dose of IV lasix ordered after which patient says she felt better, however patient is getting more short of breath in therapy with persistent weight gain, renal has been following, will add oral lasix for now -HLD cont statin -medicine consulted to assist in overall management -need f/u cardiac surgeon and EP 3. Neuro- patient reporting right foot drop since her surgery, on exam she has both dorsiflexion and plantar flexion weakness with decreased sensation on the dorsal and plantar surface of her right foot- suspect this is a sciatic nerve injury involving both peroneal and tibial nerves from compression at the level of the buttock region- patient reports that when her legs are hanging off the chair her feet go numb, patient instructed to no longer let her legs hang off the chair and to keep them elevated to alleviate pressure on sciatic nerve, low suspicion for multilevel spine root compression as patient denies back pain -could be a lumbosacral plexopathy injury, retroperitoneal hematoma ruled out via CT non-contrast 02-14-21 -will refer to neurology for NCS/EMG on d/c -consult placed with irrigation supervisor for AFO 3. Resp- monitor for infection 4. Endo- hx of hypothyroidism,TSH 18, and FT/3 low, patient's synthroid increased to 112mg daily- f/u with PMD for further dose adjustment -will d/c insulin sliding scale in place and monitor finger sticks BID, thus far well controlled -recent A1C f 7.1%, will monitor FS while here and avoid metformin given CKD, consistent carb diet 5. Heme- anemia with Hgb 7.7% on 02-13-21 s/p 2 units rbcs, patient does have +FOBT will moitor H/H and cont iron supplements 6. GI- + GI bleed (+FOBT) while on Coumadin and ASA 325mg daily , cont protonix 40mg BID and sucralfate, cont to monitor H/H which is relatively stable post transfusion, on 02-18-21 called cardiac surgeon, Dr. Crews's office and spoke with his [employer] Olga who said it ok to take patient on aspirin entirely given GI bleed, recs appreciated -consulting surgery due to drop in Hgb with +FOBT to see if inhouse scoping might be warranted given alf need for anticoagulation 7. Pain- tramadol and tylenol, gabapentin -lidoderm patch to sternum 8. DVT ppx- teds and on coumadin 9. Psych- cont zoloft for depression, seroquel prn insomnia and rozerem 10. Renal- hx of CKD monitor for NEHEMIAS, renal consulted for fluid management 11. Dispo- 02-25-21 to home, patient may need extended stay due to worsening shortness of breath and worsening exercise tolerance Allergies Coded Allergies: phenytoin (Verified Allergy, Mild, HAND SWELLING, 02/12/21) Vital Signs Vital Signs Date Time Temp Pulse Resp B/P (MAP) Pulse Ox O2 Delivery O2 Flow Rate FiO2 02/19/21 08:14 72 108/64 02/19/21 06:26 18 Room Air 02/19/21 06:00 98.0 99 Laboratory Data Labs 24H Laboratory Tests 2 02/18/21 16:30: Bedside Glucose (Misc Panel) 100 02/19/21 05:26: Bedside Glucose (Misc Panel) 107 Microbiology Microbiology 02/14/21 Stool Occult Blood (NAVI) - Final, Complete Current Medications Current Medications Current Medications Medications (Trade) Dose Ordered Sig/Constantni Route PRN Reason Start Time Stop Time Status Last Admin Dose Admin Acetaminophen (Tylenol Tab) 1,000 mg TID PO 02/12/21 21:00 02/19/21 08:11 Al Hydrox/Mg Hydrox/Simethicone (Mylanta) 30 ml Q4HP PRN PO DYSPEPSIA 02/12/21 13:50 Aspirin (Ecotrin) 325 mg DAILY PO 02/13/21 09:00 02/18/21 10:25 DC 02/18/21 07:41 Atorvastatin Calcium (Lipitor) 40 mg DAILY PO 02/13/21 09:00 02/19/21 08:11 Collagenase (SantyL) 1 dose BID TOP 02/14/21 09:00 02/19/21 08:15 Collagenase (SantyL) apply to abdominal surgi... BID TOP 02/14/21 21:00 UNV Cyanocobalamin (Vitamin B12) 500 mcg QAM PO 02/13/21 09:00 02/19/21 08:11 Dextrose (Dextrose 50%) 25 ml ASDIRECTED PRN IV SEE LABEL COMMENTS 02/12/21 13:50 Docusate Sodium (Colace) 100 mg BID PO 02/12/21 21:00 02/16/21 09:01 Ferrous Sulfate (Ferrous Sulfate) 325 mg DAILY PO 02/13/21 09:00 02/19/21 08:14 Gabapentin (Neurontin) 200 mg QHS PO 02/12/21 21:00 02/18/21 10:05 DC 02/17/21 20:06 Gabapentin (Neurontin) 400 mg QHS PO 02/18/21 21:00 02/18/21 20:32 Glucagon (Glucagon) 1 mg ASDIRECTED PRN SC SEE LABEL COMMENTS 02/12/21 13:50 Glucose (Glucose) 16 GM ASDIRECTED PRN PO SEE LABEL COMMENTS 02/12/21 13:50 Home Med (Home Med List Complete!) ASDIRECTED XX 02/12/21 19:40 02/12/21 19:46 DC Insulin Human Lispro (HumaLOG INSULIN) SEE PROTOCOL TABLE AC SC 02/13/21 07:30 02/16/21 11:51 DC 02/16/21 09:01 Insulin Human Lispro (HumaLOG INSULIN) SEE PROTOCOL TABLE QHS SC 02/12/21 21:00 02/16/21 11:51 DC Levothyroxine Sodium (Synthroid) 88 mcg DAILY@06 PO 02/13/21 06:00 02/18/21 12:54 DC 02/18/21 05:31 Levothyroxine Sodium (Synthroid) 100 mcg DAILY@06 PO 02/19/21 06:00 02/19/21 05:49 Lidocaine (Lidoderm Patch) 1 patch DAILY TD 02/13/21 09:00 02/14/21 09:04 Lidocaine/ Diphenhydr/Alum/ Mg/Simeth (Magic Mouthwash) 5ML AC SSP 02/13/21 12:00 02/14/21 07:30 Metoprolol Succinate (TopROL XL) 25 mg BID PO 02/12/21 21:00 02/14/21 09:47 DC 02/14/21 09:06 Metoprolol Succinate (TopROL XL) 75 mg DAILY PO 02/18/21 14:00 02/19/21 08:14 Metoprolol Succinate (TopROL XL) 100 mg DAILY PO 02/18/21 09:00 02/18/21 10:52 DC Metoprolol Tartrate (Lopressor) 12.5 mg BID PO 02/14/21 21:00 02/17/21 11:28 DC 02/17/21 08:21 Metoprolol Tartrate (Lopressor) 25 mg BID PO 02/17/21 21:00 02/18/21 10:36 DC 02/18/21 07:42 Non-Formulary Medication ( See Comment Field Below ) REMOVE LIDODERM PATCH DAILY@ XX 02/12/21 21:00 02/14/21 21:27 Nystatin (Mycostatin Powder, Nystop) abdominal folds, butto... BID TOP 02/12/21 21:00 02/19/21 08:16 Pantoprazole Sodium (Protonix) 40 mg BID PO 02/12/21 21:00 02/19/21 08:11 Quetiapine Fumarate (SEROquel) 25 mg QHS PRN PO insomnia 02/12/21 13:50 02/19/21 00:49 Ramelteon (Rozerem) 8 mg QHS PRN PO INSOMNIA 02/12/21 13:50 02/18/21 20:38 Senna (Senokot) 1 tab QHS PO 02/12/21 21:00 02/15/21 21:26 Sertraline HCl (Zoloft) 50 mg DAILY PO 02/13/21 09:00 02/19/21 08:14 Sucralfate (Carafate) 1 gm ACHS PO 02/13/21 12:00 02/19/21 08:11 Tramadol HCl (Ultram) 25 mg Q4HP PRN PO MODERATE PAIN (PS 5-7) 02/12/21 13:50 02/18/21 10:05 DC 02/18/21 05:32 Tramadol HCl (Ultram) 50 mg Q4HP PRN PO MODERATE PAIN (PS >5/10) 02/18/21 10:05 02/19/21 05:50 Warfarin Sodium (Coumadin) 1 mg DAILY@17 PO 02/18/21 17:00 02/18/21 16:40 Warfarin Sodium (Coumadin) 2.5 mg DAILY@17 PO 02/18/21 17:00 02/18/21 16:40 Warfarin Sodium (Coumadin) 5 mg DAILY@17 PO 02/17/21 17:00 02/18/21 10:21 DC 02/17/21 16:59 JOSE RAVI MD Feb 19, 2021 09:47
[2021-02-19 10:55] LABS: BASO # 0.1 10^3/uL (0.0-0.2); BASO % 1.3 % (0.0-1.0); EOS # 0.4 10^3/uL (0.0-0.5); EOS % 9.5 % (0.0-3.0); HEMATOCRIT 29.4 % (36.0-47.0); HEMOGLOBIN 8.9 g/dl (12.0-15.5); LYMPH # 0.8 10^3/uL (1.5-5.0); LYMPH % 17.8 % (24.0-44.0); MEAN CORPUSCULAR HEMOGLOBIN 28.1 pg (27.0-33.0); MEAN CORPUSCULAR HGB CONC 30.3 g/dl (32.0-36.5); MEAN CORPUSCULAR VOLUME 92.7 fl (80.0-96.0); MONO # 0.4 10^3/uL (0.0-0.8); MONO % 9.3 % (2.0-8.0); NEUTROPHILS # 2.8 10^3/uL (1.5-8.5); NEUTROPHILS % 61.9 % (36.0-66.0); PLATELET COUNT, AUTOMATED 281 10^3/uL (150-450); RED BLOOD COUNT 3.17 10^6/uL (4.00-5.40); WHITE BLOOD COUNT 4.5 10^3/uL (4.0-10.0)
[2021-02-19] MEDS ORDERED: FUROSEMIDE 40 MG TAB PO SCH (11:15)
[2021-02-19 11:17] LABS: INR 3.61; PROTHROMBIN TIME 36.2 SECONDS (12.7-14.5)
[2021-02-19 14:35] VITALS: BP 126/63
--- NOTE | 2021-02-19 15:08 | IPN ---
PROGRESS NOTE DATE: 02/19/2021 SUBJECTIVE: Ms. Vega is seen this morning on her bedside. She is sitting in the chair. She denies any dyspnea, chest pain, nausea or vomiting. OBJECTIVE: VITAL SIGNS: Temperature is 98 degrees Fahrenheit, heart rate is 72 per minute and respiratory rate is 18 per minute. Blood pressure 108/64 mmHg and oxygen saturation 99% on room air. HEENT: Head is atraumatic. NECK: Supple without JVD or thyroid enlargement. LUNGS: Clear to auscultation. HEART: Mechanical valve sounds. ABDOMEN: Soft and nontender. Bowel sounds are normal. EXTREMITIES: Without any cyanosis or clubbing. She does not have any peripheral edema at all. NEUROLOGIC: She is awake, alert and at her baseline mentation. LABORATORY DATA: She did not have any new labs today. Yesterday, her BUN was 17 and creatinine 1.36. PROBLEMS: 1. Congestive heart failure. Volume status is clinically well compensated. We will continue to monitor and use diuretic only as needed. She recently had her mitral and aortic valve replaced. At present, she seems to be doing well from her cardiac standpoint. 2. Acute on chronic kidney disease. Kidney function has been leveled off with a GFR of about 41 mm/minute. Her electrolytes were stable. 3. Hypothyroidism, she has been on levothyroxine 88 mcg and her TSH level is 18.4. She most likely needs some adjustment in her levothyroxine and it has already been done. She is now on 112 mcg of levothyroxine. 4. Valvular heart disease and atrial fibrillation, status post aortic and mitral valve replacement. Patient is doing well and remains on coumadin. 5. Anemia, most likely this is related to her recent cardiac surgery and has been stable. No urgent intervention is needed.
[2021-02-19 15:14] LABS: PERCENT SATURATION 14.1 % (13.2-45.0)
--- NOTE | 2021-02-19 15:17 | REP ---
INDICATION: shortness of breath on exertion, r/o pulm edema/effusion COMPARISON: 02/17/2021 TECHNIQUE: PA and lateral. FINDINGS: Stable cardiomegaly and evidence for prior sternotomy with aortic valve repair and dual lead pacemaker in stable position. Increased pulmonary vascular markings and mild cephalization suggests element of pulmonary vascular congestion. No focal consolidation. No definite effusion. No pneumothorax. IMPRESSION: Cardiomegaly with findings to suggest early pulmonary vascular congestion. <Electronically signed by Rocky Meza > 02/19/21 [id number]
[2021-02-19] MEDS: FUROSEMIDE 40MG/4ML VIAL (J1940) IV SCH (18:31)
[2021-02-19 20:10] VITALS: BP 131/69
[2021-02-19] MEDS: SENNA 8.6 MG TAB (SENOKOT) PO SCH (21:35)
[2021-02-19] MEDS: RAMELTEON 8 MG TAB (ROZEREM) PO PRN (21:35)
[2021-02-19] MEDS: GABAPENTIN 100 MG CAP PO SCH (21:36)
[2021-02-19] MEDS: traMADol 50 MG TAB PO SCH (21:36)
[2021-02-19] MEDS: **NOTE PATIENT COMMENT** MISC XX SCH (21:41)
[2021-02-20] MEDS: REMEDY PHYTOPLEX Z-GUARD PASTE 113GM TUBE (FROM STOREROOM PRODUCT) TOP SCH ×3 (05:23→08:25)
[2021-02-20 05:27] VITALS: BP 114/63
[2021-02-20] MEDS: LEVOTHYROXINE 112MCG TABLET (0.112MG) PO SCH (05:36)
[2021-02-20] MEDS: MAGIC MOUTHWASH SUSPENSION BTL SSP SCH ×3 (07:30→16:05)
[2021-02-20] MEDS: NYSTATIN 100,000 UNITS/GM TOPICAL PWD 15 GM TOP SCH ×2 (08:03→20:14)
[2021-02-20] MEDS: PANTOPRAZOLE 40MG TAB (PROTONIX) PO SCH ×2 (08:24→20:13)
[2021-02-20] MEDS: ATORVASTATIN 20 MG TAB PO SCH (08:24)
[2021-02-20] MEDS: SUCRALFATE 1 GM TAB PO SCH ×4 (08:24→20:13)
[2021-02-20] MEDS: METOPROLOL SUCC *XL* 25MG TAB (TopROL *XL*) PO SCH (08:24)
[2021-02-20] MEDS: CYANOCOBALAMIN 500 MCG TAB PO SCH (08:24)
[2021-02-20] MEDS: FERROUS SULFATE 325MG TAB PO SCH (08:24)
[2021-02-20] MEDS: ACETAMINOPHEN 500 MG TAB PO SCH ×3 (08:24→20:13)
[2021-02-20] MEDS: SERTRALINE HCL 50 MG TAB PO SCH (08:24)
[2021-02-20] MEDS: SANTYL OINT 30GM TOP SCH ×2 (08:25→20:14)
[2021-02-20] MEDS: FUROSEMIDE 40MG/4ML VIAL (J1940) IV SCH ×2 (08:25→16:06)
[2021-02-20] MEDS: LIDOCAINE 5% (LIDODERM) PATCH TD SCH (08:25)
[2021-02-20] MEDS: DOCUSATE SODIUM 100MG CAPSULE PO SCH ×2 (08:25→20:14)
--- NOTE | 2021-02-20 08:28 | CR ---
CONSULTATION DATE: 02/20/2021 REASON FOR CONSULTATION: Anemia of undetermined etiology. HISTORY OF PRESENT ILLNESS: Patient is a 65-year-old female who was admitted to the rehabilitation floor where she is postoperative from a sternotomy, redo aortic valve replacement and mitral valve repair. She has been anticoagulated for this and was given a couple units of blood several days ago and her hematocrit has very slowly drifted down minimally over the last several days although she was restarted on some diuretics yesterday. PAST MEDICAL HISTORY: History of hypothyroidism, obesity, hyperlipidemia, hypertension, depression, chronic kidney disease, vulvar cancer, severe aortic mitral valve stenosis with sternotomy, redo aortic valve replacement. PHYSICAL EXAMINATION: Mechanical heart sounds. Lungs are clear. Abdomen is obese, nontender and nondistended. IMPRESSION/PLAN: The patient is here for rehabilitation. After a long discussion with her, it sounds as though she has had anemia that has been ongoing for quite some time now and this anemia here in the hospital I anticipate is secondary to probable some gastritis or gastroduodenitis as the most likely etiology and aggressive meds that she has been placed on, i.e., proton pump inhibitors and Carafate is appropriate. However, I wonder if her major issue is that she had some fluid overload as suggested on her chest x-ray from yesterday. She did have an increase in her diuretic started yesterday and I wonder if we will have an improvement of her hematocrit today after she has been diuresed to some extent and this may be better dealt with as an outpatient when she has gained some strength but otherwise I do not see an urgent or emergent need for intervention at this time. However, if she has ongoing drop in hematocrit over the weekend, I would be glad to proceed with endoscopy on Tuesday.
[2021-02-20 08:53] LABS: BASO # 0.1 10^3/uL (0.0-0.2); BASO % 1.7 % (0.0-1.0); EOS # 0.4 10^3/uL (0.0-0.5); EOS % 10.2 % (0.0-3.0); HEMATOCRIT 30.9 % (36.0-47.0); HEMOGLOBIN 9.3 g/dl (12.0-15.5); LYMPH # 0.7 10^3/uL (1.5-5.0); LYMPH % 16.6 % (24.0-44.0); MEAN CORPUSCULAR HEMOGLOBIN 28.4 pg (27.0-33.0); MEAN CORPUSCULAR HGB CONC 30.1 g/dl (32.0-36.5); MEAN CORPUSCULAR VOLUME 94.2 fl (80.0-96.0); MONO # 0.4 10^3/uL (0.0-0.8); NEUTROPHILS # 2.6 10^3/uL (1.5-8.5); NEUTROPHILS % 61.3 % (36.0-66.0); PLATELET COUNT, AUTOMATED 288 10^3/uL (150-450); RED BLOOD COUNT 3.28 10^6/uL (4.00-5.40); WHITE BLOOD COUNT 4.2 10^3/uL (4.0-10.0)
[2021-02-20 09:01] LABS: INR 3.27; PROTHROMBIN TIME 33.6 SECONDS (12.7-14.5)
[2021-02-20 09:15] LABS: CALCIUM LEVEL 8.3 MG/DL (8.8-10.2); CREATININE FOR GFR 1.56 MG/DL (0.55-1.30); GLOMERULAR FILTRATION RATE 35.2 (>45)
--- NOTE | 2021-02-20 10:26 | IPNPDOC ---
PM&R Progress Note DATE OF SERVICE: Feb 20, 2021 Electrical Prospecting Operator Progress Note Subjective: Patient stating her breathing is better today after getting lasix and is able to tolerate more therapy. She states that she does not take her synthroif with water because she does not like the taste and instead has been taking it with pepsi. She was educated n importance of taking this med with water only since her thyroid function is very low and that it has likely contributed to her cardiac complications. She agreed to take synthroid with water. She was apprehensive about returning home Tuesday, but does not want to stay much longer in the hospital , but understands that it would be safer for her to stay beyond Tuesday to make sure her GI bleed, fluid status, exercise tolerance, and coumadin dosing was under control. REVIEW OF SYSTEMS: The following is a completed review of systems and has been reviewed. Review of systems otherwise unremarkable. PAIN: Patient self reports no pain EYES: No recent vision changes EARS, NOSE, & THROAT: No throat pain, + dysphagia (improved) CARDIOVASCULAR: Denies chest pain or palpitations PULMONARY: + shortness of breath GASTROINTESTINAL: Denies constipation/diarrhea, +black stools GENITOURINARY: denies dysuria MUSCULOSKELETAL:generalized weakness, right foot drop NEUROLOGICAL: +bilat feet paresthesias HEMATOLOGICAL: +anemia SKIN: +sternal and abdominal incision PSYCHIATRIC: Unremarkable All other review of systems found to be negative. PHYSICAL EXAMINATION: VITAL SIGNS: Please see below. GENERAL: Pleasant and cooperative. No acute distress. HEENT: PERRL. Extraocular movements intact. Clear conjunctiva, poor dentition CARDIOVASCULAR: Irregular rate and rhythm. No murmurs, rubs, or gallops LUNGS: Clear to auscultation bilaterally. No wheezes. No rhonchi ABDOMEN: Soft, nontender, mildly distended, Positive bowel sounds. Normal active bowel sounds NEUROLOGICAL: Alert and oriented times three. Cranial nerves II through XII grossly intact. Sensation grossly intact right ankle (no clonus/babinski) EXTREMITIES: 5\5 strength bilateral upper extremities. 5\5 strength right hip flexion and knee extension, 1/5 right ankle DF/EHL and plantar flexion. 5/5 strength in left lower extremity. SKIN: sternal incision c/d/i, pacemaker incision c/d/i -abdominal incisions with 5 exudative ulcers (less exudative) ASSESSMENT:65-year-old F with past medical history of prior aortic valve repair who presents status post re-do aortic valve replacement and mitral valve replacement PLAN: 1. Rehab- PT/OT advance mobility and ADLs, strengthen/stretch/maintain ROM all 4 limbs, ambulating with RW -HEAVY EQUIPMENT RENTAL ASSOCIATE for dysphagia work-up, magic mouth wash for optimal oral care, upgraded to level 4 diet per HEAVY EQUIPMENT RENTAL ASSOCIATE evcharbel 2. Cardiac- s/p aortic valve and mitral mechanical valve replacement and pacemaker placement on Coumadin, given known GI bleed discussed with hospitalist that it would be safer for the patient if the INR goal was narrowed to 2.5-3, cont beta-apoorva- sternal and pacemaker precautions, avoid driving for 6 months -EKG ordered 02-17-21 as patient noted to have irregular HR and has been tachycardic, confirmed +Afib with RVR, discussed case with medicine on how to proceed, patient has been on low short acting dose beta-apoorva, but due to some soft BPs difficult maximize this med- called Dr. Santo 02-18-21 who gave informal consult over the phone and he recommended switching to Toprol daily with holding parameters and to give a one time dose of digoxin 0.25mg- hospitalist made aware of this plan and is in agreement- tachycardia improving -Acute CHF exacerbation 02-17-21 patient noted in therapy to be more short of breath, +weight gain, BNP elevated to 7k, CXR cannot exclude effusion, one time dose of IV lasix ordered after which patient says she felt better, however patient is getting more short of breath in therapy 02-19-21 with BNP still elev ated to 6k, repeat CXR showing vascular congestion, discussed with renal and hospitalist who started 2 day course of IV lasix, patient appears less symptomatic today -HLD cont statin -medicine consulted to assist in overall management -need f/u cardiac surgeon and EP 3. Neuro- patient reporting right foot drop since her surgery, on exam she has both dorsiflexion and plantar flexion weakness with decreased sensation on the dorsal and plantar surface of her right foot- suspect this is a sciatic nerve injury involving both peroneal and tibial nerves from compression at the level of the buttock region- patient reports that when her legs are hanging off the chair her feet go numb, patient instructed to no longer let her legs hang off the chair and to keep them elevated to alleviate pressure on sciatic nerve, low suspicion for multilevel spine root compression as patient denies back pain -could be a lumbosacral plexopathy injury, retroperitoneal hematoma ruled out v ia CT non-contrast 02-14-21 -will refer to neurology for NCS/EMG on d/c -consult placed with private advisor for AFO 3. Resp- monitor for infection 4. Endo- hx of hypothyroidism,TSH 18, and FT/3 low, patient's synthroid increased to 112mg daily- patient educated on importance of taking synthroid on an empty stomach which she admits she never has as she prefers to take her medications with Pepsi, f/u with PMD for further dose adjustment -d/c ISS< figner sticks BID are very well controlled, will d/c altogether per patient request -recent A1C f 7.1%, will monitor FS while here and avoid metformin given CKD, consistent carb diet 5. Heme- anemia with Hgb 7.7% on 02-13-21 s/p 2 units rbcs, patient does have +FOBT will moitor H/H and cont iron supplements 6. GI- + GI bleed (+FOBT) while on Coumadin and ASA 325mg, on 02-18-21 called cardiac surgeon, Dr. Crews's office and spoke with his SKIVER HAND Olga who said it ok to take patient on aspirin entirely given GI bleed, recs appreciated - cont protonix 40mg BID and sucralfate, cont to monitor H/H which is relatively stable post transfusion, -consulted surgery due to drop in Hgb with +FOBT to see if inhouse scoping might be warranted given snf need for anticoagulation-Dr. Sotomayor's recs appreciated will monitor H/H over the weekend 7. Pain- tramadol and tylenol, gabapentin -lidoderm patch to sternum 8. DVT ppx- teds and on coumadin 9. Psych- cont zoloft for depression, seroquel prn insomnia and rozerem 10. Renal- hx of CKD monitor for NEHEMIAS, renal consulted for fluid management 11. Dispo- 02-25-21 to home, patient will need extended stay due to worsening shortness of breath and worsening exercise tolerance, known GI bleed, and need to stabilize coumadin dosing -plan and patient's medical status discussed at length with her sister, Stacie Allergies Coded Allergies: phenytoin (Verified Allergy, Mild, HAND SWELLING, 02/12/21) Vital Signs Vital Signs Date Time Temp Pulse Resp B/P (MAP) Pulse Ox O2 Delivery O2 Flow Rate FiO2 02/20/21 08:24 80 114/63 02/20/21 05:27 97.3 18 94 Room Air Laboratory Data CBC/BMP Laboratory Tests 02/20/21 08:04 Labs 24H Laboratory Tests 2 02/19/21 16:09: RE-Pyl-K-Type Natriuretic Peptide 6499H 02/20/21 04:59: Bedside Glucose (Misc Panel) 109 02/20/21 08:04: Immature Granulocyte % (Auto) 0.2, Neutrophils (%) (Auto) 61.3, Lymphocytes (%) (Auto) 16.6L, Monocytes (%) (Auto) 10.0H, Eosinophils (%) (Auto) 10.2H, Basophils (%) (Auto) 1.7H, Neutrophils # (Auto) 2.6, Lymphocytes # (Auto) 0.7L, Monocytes # (Auto) 0.4, Eosinophils # (Auto) 0.4, Basophils # (Auto) 0.1, Nucleated Red Blood Cells % (auto) 0.0, Prothrombin Time 33.6H, Prothromb Time International Ratio 3.27, Anion Gap 7L, Glomerular Filtration Rate 35.2L, Calcium Level 8.3L Microbiology Microbiology 02/14/21 Stool Occult Blood (NAVI) - Final, Complete Current Medications Current Medications Current Medications Medications (Trade) Dose Ordered Sig/Constantin Route PRN Reason Start Time Stop Time Status Last Admin Dose Admin Acetaminophen (Tylenol Tab) 1,000 mg TID PO 02/12/21 21:00 02/20/21 08:24 Al Hydrox/Mg Hydrox/Simethicone (Mylanta) 30 ml Q4HP PRN PO DYSPEPSIA 02/12/21 13:50 Aspirin (Ecotrin) 325 mg DAILY PO 02/13/21 09:00 02/18/21 10:25 DC 02/18/21 07:41 Atorvastatin Calcium (Lipitor) 40 mg DAILY PO 02/13/21 09:00 02/20/21 08:24 Collagenase (SantyL) 1 dose BID TOP 02/14/21 09:00 02/20/21 08:25 Collagenase (SantyL) apply to abdominal surgi... BID TOP 02/14/21 21:00 UNV Cyanocobalamin (Vitamin B12) 500 mcg QAM PO 02/13/21 09:00 02/20/21 08:24 Dextrose (Dextrose 50%) 25 ml ASDIRECTED PRN IV SEE LABEL COMMENTS 02/12/21 13:50 Docusate Sodium (Colace) 100 mg BID PO 02/12/21 21:00 02/19/21 21:35 Ferrous Sulfate (Ferrous Sulfate) 325 mg DAILY PO 02/13/21 09:00 02/20/21 08:24 Furosemide (LASIX injection) 40 mg BID@,17 IV 02/19/21 17:55 02/21/21 17:54 02/20/21 08:25 Furosemide (Lasix) 40 mg DAILY PO 02/19/21 11:15 Hold 02/19/21 14:31 Gabapentin (Neurontin) 200 mg QHS PO 02/12/21 21:00 02/18/21 10:05 DC 02/17/21 20:06 Gabapentin (Neurontin) 400 mg QHS PO 02/18/21 21:00 02/19/21 21:36 Glucagon (Glucagon) 1 mg ASDIRECTED PRN SC SEE LABEL COMMENTS 02/12/21 13:50 Glucose (Glucose) 16 GM ASDIRECTED PRN PO SEE LABEL COMMENTS 02/12/21 13:50 Home Med (Home Med List Complete!) ASDIRECTED XX 02/12/21 19:40 02/12/21 19:46 DC Insulin Human Lispro (HumaLOG INSULIN) SEE PROTOCOL TABLE AC SC 02/13/21 07:30 02/16/21 11:51 DC 02/16/21 09:01 Insulin Human Lispro (HumaLOG INSULIN) SEE PROTOCOL TABLE QHS SC 02/12/21 21:00 02/16/21 11:51 DC Levothyroxine Sodium (Synthroid) 88 mcg DAILY@06 PO 02/13/21 06:00 02/18/21 12:54 DC 02/18/21 05:31 Levothyroxine Sodium (Synthroid) 100 mcg DAILY@06 PO 02/19/21 06:00 02/19/21 09:46 DC 02/19/21 05:49 Levothyroxine Sodium (Synthroid) 112 mcg DAILY@06 PO 02/20/21 06:00 02/20/21 05:36 Lidocaine (Lidoderm Patch) 1 patch DAILY TD 02/13/21 09:00 02/19/21 13:46 DC 02/14/21 09:04 Lidocaine (Lidoderm Patch) 1 patch DAILY TD 02/19/21 14:00 02/20/21 08:25 Lidocaine/ Diphenhydr/Alum/ Mg/Simeth (Magic Mouthwash) 5ML AC SSP 02/13/21 12:00 02/14/21 07:30 Metoprolol Succinate (TopROL XL) 25 mg BID PO 02/12/21 21:00 02/14/21 09:47 DC 02/14/21 09:06 Metoprolol Succinate (TopROL XL) 75 mg DAILY PO 02/18/21 14:00 02/20/21 08:24 Metoprolol Succinate (TopROL XL) 100 mg DAILY PO 02/18/21 09:00 02/18/21 10:52 DC Metoprolol Tartrate (Lopressor) 12.5 mg BID PO 02/14/21 21:00 02/17/21 11:28 DC 02/17/21 08:21 Metoprolol Tartrate (Lopressor) 25 mg BID PO 02/17/21 21:00 02/18/21 10:36 DC 02/18/21 07:42 Non-Formulary Medication ( See Comment Field Below ) REMOVE LIDODERM PATCH DAILY@ XX 02/12/21 21:00 02/19/21 21:41 Nystatin (Mycostatin Powder, Nystop) abdominal folds, butto... BID TOP 02/12/21 21:00 02/19/21 08:16 Pantoprazole Sodium (Protonix) 40 mg BID PO 02/12/21 21:00 02/20/21 08:24 Quetiapine Fumarate (SEROquel) 25 mg QHS PRN PO insomnia 02/12/21 13:50 02/19/21 21:35 Ramelteon (Rozerem) 8 mg QHS PRN PO INSOMNIA 02/12/21 13:50 02/19/21 21:35 Senna (Senokot) 1 tab QHS PO 02/12/21 21:00 02/19/21 21:35 Sertraline HCl (Zoloft) 50 mg DAILY PO 02/13/21 09:00 02/20/21 08:24 Sucralfate (Carafate) 1 gm ACHS PO 02/13/21 12:00 02/20/21 08:24 Tramadol HCl (Ultram) 25 mg Q4HP PRN PO MODERATE PAIN (PS 5-7) 02/12/21 13:50 02/18/21 10:05 DC 02/18/21 05:32 Tramadol HCl (Ultram) 50 mg Q4HP PRN PO MODERATE PAIN (PS >5/10) 02/18/21 10:05 02/19/21 05:50 Tramadol HCl (Ultram) 50 mg QHS PO 02/19/21 21:00 02/19/21 21:36 Warfarin Sodium (Coumadin) 1 mg DAILY@17 PO 02/18/21 17:00 02/19/21 12:22 DC 02/18/21 16:40 Warfarin Sodium (Coumadin) 2.5 mg DAILY@17 PO 02/18/21 17:00 02/19/21 12:22 DC 02/18/21 16:40 Warfarin Sodium (Coumadin) 5 mg DAILY@17 PO 02/17/21 17:00 02/18/21 10:21 DC 02/17/21 16:59 JOSE RAVI MD Feb 20, 2021 10:26
--- NOTE | 2021-02-20 12:54 | IPN ---
NEPHROLOGY PROGRESS NOTE DATE: 02/20/2021 SUBJECTIVE: Ms. Vega was seen this morning on her bedside. She is sitting in the chair as usual. She denies any dyspnea or chest pain. She was given Lasix yesterday due to shortness of breath. I was called by Dr. Carrillo and chest x-ray was done yesterday, which did show some evidence for pulmonary vascular congestion. Patient reports that she does get short of breath when she walks. She denies any nausea or vomiting. PHYSICAL EXAMINATION: GENERAL: She is awake and alert, sitting in the chair. VITAL SIGNS: Temperature 97.3 degrees Fahrenheit, heart rate 80 per minute, respiratory rate 18 per minute, blood pressure 114/63 mmHg, oxygen saturation 94-100% on room air. HEAD: Atraumatic. NECK: Supple and jugular venous distention (JVD) is about 6-7 cm above sternal angle. HEART SOUNDS: Have mechanical valve sounds. LUNGS: Clear to auscultation. ABDOMEN: Soft and wound is covered with a dressing on anterior abdominal wall. Bowel sounds are normal. EXTREMITIES: No cyanosis or clubbing. She does have trace peripheral edema today. LABORATORY REVIEW: Today's labs show sodium 140, potassium 4.0, CO2 27, BUN 19, creatinine 1.96, glucose 136, calcium 8.3. Hemoglobin 9.3, hematocrit 30.9. PROBLEMS: 1. Congestive heart failure. Her BNP level was 7443 on February 17, 2021 and yesterday, it was down to 6499. This is still elevated and she is now being diuresed with Lasix 40 mg intravenously. We will monitor her over the next 24 hours, then I will consider to put her on maintenance daily diuretic dose. 2. Acute on chronic kidney disease. Kidney function is slightly worse, but this is related to diuresis. Electrolytes are stable. She has no uremic symptoms. She is known to have underlying chronic kidney disease. 3. Anemia. At present, anemia is stable and does not need any urgent intervention.
[2021-02-20 13:54] VITALS: BP 118/57
[2021-02-20 20:00] VITALS: BP 137/64
[2021-02-20] MEDS: traMADol 50 MG TAB PO SCH (20:13)
[2021-02-20] MEDS: GABAPENTIN 100 MG CAP PO SCH (20:13)
[2021-02-20] MEDS: SENNA 8.6 MG TAB (SENOKOT) PO SCH (20:14)
[2021-02-20] MEDS: **NOTE PATIENT COMMENT** MISC XX SCH (20:15)
[2021-02-21] MEDS: RAMELTEON 8 MG TAB (ROZEREM) PO PRN ×2 (00:54→20:24)
[2021-02-21] MEDS: traMADol 50 MG TAB PO PRN ×2 (00:54→04:57)
[2021-02-21] MEDS: LEVOTHYROXINE 112MCG TABLET (0.112MG) PO SCH (04:57)
[2021-02-21] MEDS: REMEDY PHYTOPLEX Z-GUARD PASTE 113GM TUBE (FROM STOREROOM PRODUCT) TOP SCH ×5 (04:57→23:17)
[2021-02-21 06:00] VITALS: BP 152/72
[2021-02-21 08:00] LABS: BASO # 0.1 10^3/uL (0.0-0.2); BASO % 1.7 % (0.0-1.0); EOS # 0.4 10^3/uL (0.0-0.5); EOS % 9.5 % (0.0-3.0); HEMATOCRIT 31.3 % (36.0-47.0); HEMOGLOBIN 9.4 g/dl (12.0-15.5); LYMPH # 0.8 10^3/uL (1.5-5.0); LYMPH % 18.2 % (24.0-44.0); MEAN CORPUSCULAR HEMOGLOBIN 27.6 pg (27.0-33.0); MEAN CORPUSCULAR VOLUME 92.1 fl (80.0-96.0); MONO # 0.4 10^3/uL (0.0-0.8); MONO % 10.2 % (2.0-8.0); NEUTROPHILS # 2.5 10^3/uL (1.5-8.5); NEUTROPHILS % 60.4 % (36.0-66.0); PLATELET COUNT, AUTOMATED 305 10^3/uL (150-450); WHITE BLOOD COUNT 4.1 10^3/uL (4.0-10.0)
[2021-02-21 08:11] LABS: INR 2.58; PROTHROMBIN TIME 28.1 SECONDS (12.7-14.5)
[2021-02-21 08:20] LABS: CALCIUM LEVEL 8.3 MG/DL (8.8-10.2); CREATININE FOR GFR 1.37 MG/DL (0.55-1.30); GLOMERULAR FILTRATION RATE 40.9 (>45); POTASSIUM SERUM 4.1 MEQ/L (3.5-5.1)
[2021-02-21] MEDS: DOCUSATE SODIUM 100MG CAPSULE PO SCH ×2 (09:00→20:21)
[2021-02-21] MEDS: CYANOCOBALAMIN 500 MCG TAB PO SCH (09:29)
[2021-02-21] MEDS: PANTOPRAZOLE 40MG TAB (PROTONIX) PO SCH ×2 (09:29→20:24)
[2021-02-21] MEDS: FUROSEMIDE 40MG/4ML VIAL (J1940) IV SCH (09:29)
[2021-02-21] MEDS: METOPROLOL SUCC *XL* 25MG TAB (TopROL *XL*) PO SCH (09:30)
[2021-02-21] MEDS: SERTRALINE HCL 50 MG TAB PO SCH (09:30)
[2021-02-21] MEDS: ATORVASTATIN 20 MG TAB PO SCH (09:30)
[2021-02-21] MEDS: FERROUS SULFATE 325MG TAB PO SCH (09:30)
[2021-02-21] MEDS: SUCRALFATE 1 GM TAB PO SCH ×4 (09:30→20:24)
[2021-02-21] MEDS: ACETAMINOPHEN 500 MG TAB PO SCH ×3 (09:32→20:25)
[2021-02-21] MEDS: LIDOCAINE 5% (LIDODERM) PATCH TD SCH (09:34)
[2021-02-21] MEDS: MAGIC MOUTHWASH SUSPENSION BTL SSP SCH ×3 (09:34→16:59)
[2021-02-21] MEDS: NYSTATIN 100,000 UNITS/GM TOPICAL PWD 15 GM TOP SCH ×2 (09:35→20:25)
[2021-02-21] MEDS: SANTYL OINT 30GM TOP SCH ×2 (09:36→20:25)
[2021-02-21 14:00] VITALS: BP 139/64
[2021-02-21] MEDS ORDERED: WARFARIN SOD 3MG TAB PO SCH (17:00)
--- NOTE | 2021-02-21 17:45 | IPN ---
NEPHROLOGY PROGRESS NOTE DATE: 02/21/2021 SUBJECTIVE: Ms. Vega is seen this morning on her bedside. She is feeling better and reports improved dyspnea on exertion. She denies any nausea or vomiting. PHYSICAL EXAMINATION: VITAL SIGNS: Temperature 96.9 degrees Fahrenheit, heart rate 80 per minute, respiratory rate 18 per minute, blood pressure 152/72 mmHg, oxygen saturation 99% on room air. Her weight is recorded as 75.1 kg today. Essentially, there is no change in her weight since admission. HEAD: Atraumatic. NECK: Supple and jugular venous distention (JVD) not elevated sitting upright. HEART SOUNDS: Irregular with prosthetic valve sounds. LUNGS: Clear to auscultation bilaterally. ABDOMEN: Soft and nontender. Bowel sounds are normal. EXTREMITIES: Without any cyanosis or clubbing. NEUROLOGIC: She has no focal deficit. LABORATORY REVIEW: Today's labs show WBC 4.1, hemoglobin 9.4, hematocrit 31.3, platelets 305. Sodium 140, potassium 4.1, BUN 21, creatinine 1.37, glucose 95, calcium 8.3. PROBLEMS: 1. Acute on chronic kidney disease. Kidney function has improved compared to yesterday. She has been diuresed. Electrolytes are stable at this point. I believe her kidney function is about chronic baseline. 2. Congestive heart failure. She has been receiving intravenous Lasix. Clinically, she seems well compensated. I am going to recheck her BNP level for monitoring. We will switch her diuretic to oral furosemide 40 mg daily now and then consider to adjust the dose as needed. 3. Anemia. Her anemia is stable and there is no need for any urgent intervention. 4. Atrial fibrillation and status post aortic mitral valve replacement. Patient has been doing well and ventricular rate is well controlled at present.
[2021-02-21 20:00] VITALS: BP 140/71
[2021-02-21] MEDS: SENNA 8.6 MG TAB (SENOKOT) PO SCH (20:21)
[2021-02-21] MEDS: traMADol 50 MG TAB PO SCH (20:24)
[2021-02-21] MEDS: GABAPENTIN 100 MG CAP PO SCH (20:24)
[2021-02-21] MEDS: **NOTE PATIENT COMMENT** MISC XX SCH (20:25)
--- NOTE | 2021-02-21 20:58 | ECHO ---
ECHOCARDIOGRAM DATE OF PROCEDURE: 02/17/2021 Age: 65 Gender: Female Height: 155 cm Weight: 75 kg REFERRING PHYSICIAN: Dr. Roger Ferraro INDICATION: Cardiac dysrhythmia unspecified MEASUREMENTS: 2D Measurements: Interventricular septum 1.34 cm Posterior wall 1.29 cm Left ventricle diastole 4.2 cm Left atrium 4.4 cm Left atrial volume index 60 Aortic annulus 1.9 cm Proximal ascending aorta 3.1 cm Doppler Measurements: No aortic stenosis No aortic regurgitation Aortic valve velocity 150 cm/sec LVOT velocity 68.1 cm/sec No mitral regurgitation No mitral stenosis Mitral E velocity (CW) 132.0 cm/sec Mean mitral gradient 4 mmHg Mild tricuspid regurgitation Estimated right ventricle systolic pressure 26-31 mmHg No pulmonic regurgitation Pulmonary artery systolic pressure 31 mmHg DESCRIPTION: Rhythm was atrial fibrillation with rapid ventricular rate and intermittent either pacing or left bundle branch block. This was a moderately technically difficult echocardiogram. CONCLUSIONS: 1. Mild concentric left ventricular hypertrophy. Paradoxical septal motion. No regional LV wall motion abnormalities otherwise. Normal LV systolic function. LVEF 65% by visual estimate. 2. Well seated and normally functioning aortic valve double tilting disc mechanical prosthesis. No aortic stenosis or regurgitation. 3. Status post mitral valve repair. No mitral regurgitation or stenosis. 4. Severe left atrial dilatation by left atrial volume index, ` 5. Presence of endocardial pacemaker leads seen in the right side of the heart. 6. No pericardial effusion. 7. Moderate technically difficult echocardiogram. Dr. Roger Ferraro
[2021-02-22] MEDS: traMADol 50 MG TAB PO PRN ×2 (00:30→05:30)
[2021-02-22] MEDS: QUEtiapine FUMARATE 25 MG TAB PO PRN ×2 (01:35→20:59)
[2021-02-22] MEDS: REMEDY PHYTOPLEX Z-GUARD PASTE 113GM TUBE (FROM STOREROOM PRODUCT) TOP SCH ×3 (05:08→17:31)
[2021-02-22] MEDS: LEVOTHYROXINE 112MCG TABLET (0.112MG) PO SCH (05:25)
[2021-02-22 06:00] VITALS: BP 141/69
[2021-02-22 07:03] LABS: INR 1.99
[2021-02-22] MEDS: SUCRALFATE 1 GM TAB PO SCH ×4 (07:30→20:53)
[2021-02-22] MEDS: MAGIC MOUTHWASH SUSPENSION BTL SSP SCH ×3 (07:30→17:30)
[2021-02-22] MEDS ORDERED: FUROSEMIDE 40 MG TAB PO SCH (09:00)
[2021-02-22] MEDS: NYSTATIN 100,000 UNITS/GM TOPICAL PWD 15 GM TOP SCH ×2 (09:00→21:04)
[2021-02-22] MEDS: LIDOCAINE 5% (LIDODERM) PATCH TD SCH (09:00)
[2021-02-22] MEDS: DOCUSATE SODIUM 100MG CAPSULE PO SCH ×2 (09:00→20:53)
[2021-02-22] MEDS: FERROUS SULFATE 325MG TAB PO SCH (10:03)
[2021-02-22] MEDS: ACETAMINOPHEN 500 MG TAB PO SCH ×3 (10:03→20:53)
[2021-02-22] MEDS: PANTOPRAZOLE 40MG TAB (PROTONIX) PO SCH ×2 (10:04→20:53)
[2021-02-22] MEDS: SERTRALINE HCL 50 MG TAB PO SCH (10:04)
[2021-02-22] MEDS: METOPROLOL SUCC *XL* 25MG TAB (TopROL *XL*) PO SCH (10:04)
[2021-02-22] MEDS: ATORVASTATIN 20 MG TAB PO SCH (10:05)
[2021-02-22] MEDS: CYANOCOBALAMIN 500 MCG TAB PO SCH (10:11)
[2021-02-22] MEDS: SANTYL OINT 30GM TOP SCH ×2 (10:13→21:04)
[2021-02-22 14:00] VITALS: BP 191/84
[2021-02-22 14:26] VITALS: BP 162/84
[2021-02-22] MEDS ORDERED: METOPROLOL SUCC *XL* 25MG TAB (TopROL *XL*) PO ONE (15:00)
--- NOTE | 2021-02-22 15:40 | IPNPDOC ---
Subjective Date Seen The patient was seen on 02/22/21. Subjective Chief Complaint/HPI Mrs. Vega is a 65 year old female who is in ARU after repair of stenotic bioprosthetic aortic valve and stenotic mitral valve with mechanical aortic and mitral valve placed on 01/22/21. She was seen this afternoon. She denies any chest pain. She tells me her dyspnea is chronic, but improving with the diuresis. She is frustrated with her right foot drop. Her AFO is expected to arrive on Tuesday. Otherwise, her blood pressure has steadily risen. Will increase her Toprol XL back to 100mg qD. Her INR is slightly subtherapeutic at 1.99. Will increase today's warfarin dose from 3mg to 5mg. Resume 3mg tomorrow Objective Physical Examination General Exam: Positive: Alert, Cooperative Eye Exam: Positive: EOMI; Negative: Sclera icteric Chest Exam: Positive: Clear to auscultation Heart Exam: Positive: Rate Normal, Regular Rhythm Abdomen Exam: Positive: Normal bowel sounds, Soft; Negative: Tenderness Psych Exam: Positive: Mental status NL, Mood NL Assessment /Plan Plan/VTE VTE Prophylaxis Ordered?: Yes Plan 1. Weakness after cardiac surgery -Management per ARU 2. Acute congestive heart failure with preserved ejection fraction -Echocardiogram on 02/17/21 demonstrates EF 65% -Nephrology following, recommendations appreciated -Patient was on IV diuretics, now on PO diuretics 3. Recent mechanical valve placement -Patient will need to be maintained on warfarin with INR goal of 2.5 to 3.0. Decreased goal slightly due to concern for anemia and GI bleeding -Continue warfarin -Continue monitoring INR 3. Anemia -On admission, patient received 2u pRBC for hemoglobin 7.7 -Hemoglobin stable currently -Monitor H&H -Continue pantoprazole and Carafate 4. Hypertension -Increase Toprol XL from 75qD to 100mg qD -Continue furosemide 5. Hyperlipidemia -Continue atorvastatin 6. Chronic kidney disease stage III -Avoid nephrotoxins -Supportive care -Monitor renal function 7. Hypothyroidism -Continue levothyroxine 8. DVT ppx -Patient is on warfarin Disposition: Per ARU VS, I&O, 24H, Fishbone Vital Signs/I&O Vital Signs Date Time Temp Pulse Resp B/P (MAP) Pulse Ox O2 Delivery O2 Flow Rate FiO2 02/22/21 15:10 81 162/84 02/22/21 14:00 97.4 19 98 Room Air I&O- Last 24 Hours up to 6 AM 02/22/21 06:00 Intake Total 720 ml Balance 720 ml Laboratory Data 24H LABS Laboratory Tests 2 02/22/21 06:28: Prothrombin Time 23.0H, Prothromb Time International Ratio 1.99, BW-Edh-X-Type Natriuretic Peptide 3687H Microbiology Microbiology 02/14/21 Stool Occult Blood (NAVI) - Final, Complete JOSE VIDAL DO Feb 22, 2021 15:39
[2021-02-22] MEDS ORDERED: WARFARIN SOD 5MG TAB PO ONE (17:00)
[2021-02-22] MEDS: FUROSEMIDE 40 MG TAB PO SCH (17:29)
[2021-02-22 17:50] VITALS: BP 153/86
[2021-02-22 20:00] VITALS: BP 131/63
[2021-02-22] MEDS: traMADol 50 MG TAB PO SCH (20:52)
[2021-02-22] MEDS: GABAPENTIN 100 MG CAP PO SCH (20:52)
[2021-02-22] MEDS: SENNA 8.6 MG TAB (SENOKOT) PO SCH (20:53)
[2021-02-22] MEDS: amLODIPine 5 MG TAB PO SCH (20:55)
--- NOTE | 2021-02-22 20:56 | IPN ---
PROGRESS NOTE DATE: 02/22/2021 SUBJECTIVE: Ms. Vega is seen this afternoon on her bedside. She is lying flat in her bed at the time of my visit. She denies any difficulty breathing. She has no nausea or vomiting. PHYSICAL EXAMINATION: VITALS: Temperature 97.4 degrees Fahrenheit, heart rate 80 per minute, respiratory rate 19 per minute, blood pressure 162/84 mmHg and oxygen saturation 98% on room air. HEENT: Head is atraumatic. Neck is supple and no JVD noted. LUNGS: Sound clear to auscultation. HEART: Sounds are mechanical, prosthetic valve sounds with irregular rhythm. ABDOMEN: Obese and nontender. Bowel sounds are normal. Anterior abdominal wall wound is covered with dressing. EXTREMITIES: Without any cyanosis or clubbing. She does have mild lower extremity edema. NEUROLOGIC: She is at her baseline mentation. LABORATORY STUDIES: Her only lab done today was a BNP level, which is down to 3,687. Yesterday her BUN was 21 and creatinine 1.37. PROBLEMS: 1. Congestive heart failure: Patient has been diuresed and BNP level has come down from 7,443 on February 17 down to 3,687 today. She is lying flat and has no difficulty breathing. She is oxygenating in high 90's without any oxygen supplementation. I have switched her diuretic to oral Lasix 40 mg b.i.d. Electrolytes and renal function will be checked again tomorrow. 2. Acute kidney injury superimposed on chronic kidney disease: Kidney function has been mostly stable with mild fluctuations related to diuresis. Renal profile will be checked again tomorrow. Her electrolytes have been stable. 3. Anemia: Mild anemia has been stable and does not need any intervention. 4. Hypertension: Her blood pressure seems reasonable and she remains on beta-apoorva and diuretic. 5. Aortic and mitral valve disease: Status post aortic and mitral valve replacement. Patient remains on Coumadin due to prosthetic valve. She also has a history of atrial fibrillation.
[2021-02-22] MEDS: RAMELTEON 8 MG TAB (ROZEREM) PO PRN (20:57)
[2021-02-22] MEDS: **NOTE PATIENT COMMENT** MISC XX SCH (21:00)
[2021-02-23] MEDS: traMADol 50 MG TAB PO PRN ×2 (02:29→08:13)
[2021-02-23] MEDS: REMEDY PHYTOPLEX Z-GUARD PASTE 113GM TUBE (FROM STOREROOM PRODUCT) TOP SCH ×5 (05:54→20:33)
[2021-02-23 06:00] VITALS: BP 138/68
[2021-02-23] MEDS: LEVOTHYROXINE 112MCG TABLET (0.112MG) PO SCH (06:06)
[2021-02-23 07:03] LABS: BASO # 0.1 10^3/uL (0.0-0.2); BASO % 1.6 % (0.0-1.0); EOS # 0.4 10^3/uL (0.0-0.5); EOS % 9.2 % (0.0-3.0); HEMATOCRIT 31.4 % (36.0-47.0); HEMOGLOBIN 9.7 g/dl (12.0-15.5); LYMPH # 0.8 10^3/uL (1.5-5.0); LYMPH % 21.8 % (24.0-44.0); MEAN CORPUSCULAR HEMOGLOBIN 28.3 pg (27.0-33.0); MEAN CORPUSCULAR HGB CONC 30.9 g/dl (32.0-36.5); MEAN CORPUSCULAR VOLUME 91.5 fl (80.0-96.0); MONO # 0.6 10^3/uL (0.0-0.8); MONO % 15.3 % (2.0-8.0); NEUTROPHILS % 51.6 % (36.0-66.0); PLATELET COUNT, AUTOMATED 262 10^3/uL (150-450); RED BLOOD COUNT 3.43 10^6/uL (4.00-5.40); WHITE BLOOD COUNT 3.8 10^3/uL (4.0-10.0)
[2021-02-23 07:15] LABS: INR 1.85; PROTHROMBIN TIME 21.7 SECONDS (12.7-14.5)
[2021-02-23 07:26] LABS: CALCIUM LEVEL 8.7 MG/DL (8.8-10.2); CREATININE FOR GFR 1.52 MG/DL (0.55-1.30); GLOMERULAR FILTRATION RATE 36.3 (>45); POTASSIUM SERUM 3.6 MEQ/L (3.5-5.1)
[2021-02-23] MEDS: MAGIC MOUTHWASH SUSPENSION BTL SSP SCH ×3 (07:30→17:30)
[2021-02-23] MEDS: PANTOPRAZOLE 40MG TAB (PROTONIX) PO SCH ×2 (08:13→20:31)
[2021-02-23] MEDS: SERTRALINE HCL 50 MG TAB PO SCH (08:13)
[2021-02-23] MEDS: CYANOCOBALAMIN 500 MCG TAB PO SCH (08:13)
[2021-02-23] MEDS: FERROUS SULFATE 325MG TAB PO SCH (08:13)
[2021-02-23] MEDS: ACETAMINOPHEN 500 MG TAB PO SCH ×3 (08:13→20:30)
[2021-02-23] MEDS: ATORVASTATIN 20 MG TAB PO SCH (08:14)
[2021-02-23] MEDS: amLODIPine 5 MG TAB PO SCH (08:14)
[2021-02-23] MEDS: FUROSEMIDE 40 MG TAB PO SCH ×2 (08:14→17:45)
[2021-02-23] MEDS: SUCRALFATE 1 GM TAB PO SCH ×4 (08:14→20:31)
[2021-02-23] MEDS: LIDOCAINE 5% (LIDODERM) PATCH TD SCH (08:14)
[2021-02-23] MEDS: METOPROLOL SUCC (TopROL XL) 100MG *XL* TAB PO SCH (08:15)
[2021-02-23] MEDS: SANTYL OINT 30GM TOP SCH ×2 (08:17→20:32)
[2021-02-23] MEDS: NYSTATIN 100,000 UNITS/GM TOPICAL PWD 15 GM TOP SCH ×2 (08:17→20:32)
[2021-02-23] MEDS: DOCUSATE SODIUM 100MG CAPSULE PO SCH ×2 (08:18→20:31)
--- NOTE | 2021-02-23 09:56 | IPNPDOC ---
PM&R Progress Note DATE OF SERVICE: Feb 23, 2021 Hoisting Engineer Progress Note Subjective: Patient stating she is feeling better and her breathing continues to improve. She is hoping she can go home by the end of this week. REVIEW OF SYSTEMS: The following is a completed review of systems and has been reviewed. Review of systems otherwise unremarkable. PAIN: Patient self reports no pain EYES: No recent vision changes EARS, NOSE, & THROAT: No throat pain, + dysphagia (improved) CARDIOVASCULAR: Denies chest pain or palpitations PULMONARY: + shortness of breath (improving) GASTROINTESTINAL: Denies constipation/diarrhea, +black stools GENITOURINARY: denies dysuria MUSCULOSKELETAL:generalized weakness, right foot drop NEUROLOGICAL: +bilat feet paresthesias HEMATOLOGICAL: +anemia SKIN: +sternal and abdominal incision PSYCHIATRIC: Unremarkable All other review of systems found to be negative. PHYSICAL EXAMINATION: VITAL SIGNS: Please see below. GENERAL: Pleasant and cooperative. No acute distress. HEENT: PERRL. Extraocular movements intact. Clear conjunctiva, poor dentition CARDIOVASCULAR: Irregular rate and rhythm. No murmurs, rubs, or gallops LUNGS: Clear to auscultation bilaterally. No wheezes. No rhonchi ABDOMEN: Soft, nontender, mildly distended, Positive bowel sounds. Normal active bowel sounds NEUROLOGICAL: Alert and oriented times three. Cranial nerves II through XII grossly intact. Sensation grossly intact right ankle (no clonus/babinski) EXTREMITIES: 5\5 strength bilateral upper extremities. 5\5 strength right hip flexion and knee extension, 1/5 right ankle DF/EHL and plantar flexion. 5/5 strength in left lower extremity. SKIN: sternal incision c/d/i, pacemaker incision c/d/i -abdominal incisions healing ASSESSMENT:65-year-old F with past medical history of prior aortic valve repair who presents status post re-do aortic valve replacement and mitral valve replacement PLAN: 1. Rehab- PT/OT advance mobility and ADLs, strengthen/stretch/maintain ROM all 4 limbs, ambulating further with RW -FITNESS TECHNICIAN for dysphagia work-up, magic mouth wash for optimal oral care, upgraded to level 4 diet per FITNESS TECHNICIAN eval 2. Cardiac- s/p aortic valve and mitral mechanical valve replacement and p acemaker placement on Coumadin, given known GI bleed discussed with hospitalist that it would be safer for the patient if the INR goal was narrowed to 2.5-3, cont beta-apoorva- sternal and pacemaker precautions, avoid driving for 6 months -EKG ordered 02-17-21 as patient noted to have irregular HR and has been tachycardic, confirmed +Afib with RVR, discussed case with medicine on how to proceed, patient has been on low short acting dose beta-apoorva, but due to some soft BPs difficult maximize this med- called Dr. Satno 02-18-21 who gave informal consult over the phone and he recommended switching to Toprol daily with holding parameters and to give a one time dose of digoxin 0.25mg- hospitalist made aware of this plan and is in agreement- tachycardia resolved -Acute CHF exacerbation 02-17-21 patient noted in therapy to be more short of breath, +weight gain, BNP elevated to 7k, CXR cannot exclude effusion, one time dose of IV lasix ordered after which patient says she felt better, however patient is getting more short of breath in therapy 02-19-21 with BNP still elevated to 6k, repeat CXR showing vascular congestion, discussed with renal and hospitalist who started 2 day course of IV lasix and has now been on oral lasix, patient exercise tolerance and respiratory symptoms much improved- recs and assistance appreciated -HLD cont statin -medicine consulted to assist in overall management -need f/u cardiac surgeon and EP 3. Neuro- patient reporting right foot drop since her surgery, on exam she has both dorsiflexion and plantar flexion weakness with decreased sensation on the dorsal and plantar surface of her right foot- suspect this is a sciatic nerve injury involving both peroneal and tibial nerves from compression at the level of the buttock region- patient reports that when her legs are hanging off the chair her feet go numb, patient instructed to no longer let her legs hang off the chair and to keep them elevated to alleviate pressure on sciatic nerve, low suspicion for multilevel spine root compression as patient denies back pain -could be a lumbosacral plexopathy injury, retroperitoneal hematoma ruled out via CT non-contrast 02-14-21 -will refer to neurology for NCS/EMG on d/c -consult placed with drug and alcohol counselor for AFO 3. Resp- monitor for infection 4. Endo- hx of hypothyroidism,TSH 18, and FT/3 low, patient's synthroid increased to 112mg daily- patient educated on importance of taking synthroid on an empty stomach which she admits she never has as she prefers to take her medications with Pepsi, f/u with PMD for further dose adjustment -d/c ISS< figner sticks BID are very well controlled, will d/c altogether per patient request -recent A1C f 7.1%, will monitor FS while here and avoid metformin given CKD, consistent carb diet 5. Heme- anemia with Hgb 7.7% on 02-13-21 s/p 2 units rbcs, patient does have +F OBT will moitor H/H and cont iron supplements, renal following and patient receiving Venofer 6. GI- + GI bleed (+FOBT) while on Coumadin and ASA 325mg, on 02-18-21 called cardiac surgeon, Dr. Crews's office and spoke with his DIGITAL COMMENTATOR Olga who said it ok to take patient on aspirin entirely given GI bleed, recs appreciated - cont protonix 40mg BID and sucralfate, cont to monitor H/H which is relatively stable post transfusion, -consulted surgery due to drop in Hgb with +FOBT to see if inhouse scoping might be warranted given [facility] need for anticoagulation-Dr. Sotomayor's recs appreciated will cont to monitor H/H which has been stable 7. Pain- tramadol and tylenol, gabapentin -lidoderm patch to sternum 8. DVT ppx- teds and on coumadin 9. Psych- cont zoloft for depression, seroquel prn insomnia and rozerem 10. Renal- hx of CKD monitor for NEHEMIAS, renal consulted for fluid management 11. Dispo- patient will need extended stay due to recent acute CHF exacerbation, known GI bleed, and need to stabilize coumadin dosing -plan and patient's medical status discussed at length with her sister, Stacie DME -patient require a right custom fit carbon spiral AFO. She is ambulatory with a walker and has profound weakness in both dorsiflexion and plantar flexion following cardiac surgery with numbness. This weakness will cause her to catch her toe when she walks and icnrease her chance of falling. She will benefit from a custom fit carbon fiber AFO to provide dorsiflexion lift. Allergies Coded Allergies: phenytoin (Verified Allergy, Mild, HAND SWELLING, 02/12/21) Vital Signs Vital Signs Date Time Temp Pulse Resp B/P (MAP) Pulse Ox O2 Delivery O2 Flow Rate FiO2 02/23/21 08:45 16 02/23/21 08:15 81 138/68 02/23/21 06:00 98.3 96 Room Air Laboratory Data CBC/BMP Laboratory Tests 02/23/21 06:29 Labs 24H Laboratory Tests 2 02/23/21 06:29: Immature Granulocyte % (Auto) 0.5, Neutrophils (%) (Auto) 51.6, Lymphocytes (%) (Auto) 21.8L, Monocytes (%) (Auto) 15.3H, Eosinophils (%) (Auto) 9.2H, Basophils (%) (Auto) 1.6H, Neutrophils # (Auto) 2.0, Lymphocytes # (Auto) 0.8L, Monocytes # (Auto) 0.6, Eosinophils # (Auto) 0.4, Basophils # (Auto) 0.1, Nucleated Red Blood Cells % (auto) 0.0, Prothrombin Time 21.7H, Prothromb Time International Ratio 1.85, Anion Gap 6L, Glomerular Filtration Rate 36.3L, Calcium Level 8.7L, CJ-Csw-T-Type Natriuretic Peptide 3354H Microbiology Microbiology 02/22/21 Stool Occult Blood (NAVI) - Final, Complete 02/14/21 Stool Occult Blood (NAVI) - Final, Complete Current Medications Current Medications Current Medications Medications (Trade) Dose Ordered Sig/Constantin Route PRN Reason Start Time Stop Time Status Last Admin Dose Admin Acetaminophen (Tylenol Tab) 1,000 mg TID PO 02/12/21 21:00 02/23/21 08:13 Al Hydrox/Mg Hydrox/Simethicone (Mylanta) 30 ml Q4HP PRN PO DYSPEPSIA 02/12/21 13:50 Amlodipine Besylate (Norvasc) 5 mg DAILY PO 02/22/21 09:00 02/23/21 08:14 Aspirin (Ecotrin) 325 mg DAILY PO 02/13/21 09:00 02/18/21 10:25 DC 02/18/21 07:41 Atorvastatin Calcium (Lipitor) 40 mg DAILY PO 02/13/21 09:00 02/23/21 08:14 Collagenase (SantyL) 1 dose BID TOP 02/14/21 09:00 02/23/21 08:17 Collagenase (SantyL) apply to abdominal surgi... BID TOP 02/14/21 21:00 UNV Cyanocobalamin (Vitamin B12) 500 mcg QAM PO 02/13/21 09:00 02/23/21 08:13 Dextrose (Dextrose 50%) 25 ml ASDIRECTED PRN IV SEE LABEL COMMENTS 02/12/21 13:50 Docusate Sodium (Colace) 100 mg BID PO 02/12/21 21:00 02/22/21 20:53 Ferrous Sulfate (Ferrous Sulfate) 325 mg DAILY PO 02/13/21 09:00 02/23/21 08:13 Furosemide (LASIX injection) 40 mg BID@09,17 IV 02/19/21 17:55 02/21/21 14:53 DC 02/21/21 09:29 Furosemide (Lasix) 40 mg BID@0900,1700 PO 02/22/21 17:00 02/23/21 08:14 Furosemide (Lasix) 40 mg DAILY PO 02/19/21 11:15 02/20/21 10:25 DC 02/19/21 14:31 Furosemide (Lasix) 40 mg DAILY PO 02/22/21 09:00 02/22/21 12:35 DC 02/22/21 10:05 Gabapentin (Neurontin) 200 mg QHS PO 02/12/21 21:00 02/18/21 10:05 DC 02/17/21 20:06 Gabapentin (Neurontin) 400 mg QHS PO 02/18/21 21:00 02/22/21 20:52 Glucagon (Glucagon) 1 mg ASDIRECTED PRN SC SEE LABEL COMMENTS 02/12/21 13:50 Glucose (Glucose) 16 GM ASDIRECTED PRN PO SEE LABEL COMMENTS 02/12/21 13:50 Home Med (Home Med List Complete!) ASDIRECTED XX 02/12/21 19:40 02/12/21 19:46 DC Insulin Human Lispro (HumaLOG INSULIN) SEE PROTOCOL TABLE AC SC 02/13/21 07:30 02/16/21 11:51 DC 02/16/21 09:01 Insulin Human Lispro (HumaLOG INSULIN) SEE PROTOCOL TABLE QHS SC 02/12/21 21:00 02/16/21 11:51 DC Iron 200 mg/ Sodium Chloride 110 ml @ 110 mls/hr Q24H IV 02/23/21 12:00 02/25/21 12:59 Levothyroxine Sodium (Synthroid) 88 mcg DAILY@06 PO 02/13/21 06:00 02/18/21 12:54 DC 02/18/21 05:31 Levothyroxine Sodium (Synthroid) 100 mcg DAILY@06 PO 02/19/21 06:00 02/19/21 09:46 DC 02/19/21 05:49 Levothyroxine Sodium (Synthroid) 112 mcg DAILY@06 PO 02/20/21 06:00 02/23/21 06:06 Lidocaine (Lidoderm Patch) 1 patch DAILY TD 02/13/21 09:00 02/19/21 13:46 DC 02/14/21 09:04 Lidocaine (Lidoderm Patch) 1 patch DAILY TD 02/19/21 14:00 02/23/21 08:14 Lidocaine/ Diphenhydr/Alum/ Mg/Simeth (Magic Mouthwash) 5ML AC SSP 02/13/21 12:00 02/21/21 09:34 Metoprolol Succinate (TopROL XL) 25 mg BID PO 02/12/21 21:00 02/14/21 09:47 DC 02/14/21 09:06 Metoprolol Succinate (TopROL XL) 75 mg DAILY PO 02/18/21 14:00 02/22/21 14:59 DC 02/22/21 10:04 Metoprolol Succinate (TopROL XL) 100 mg DAILY PO 02/18/21 09:00 02/18/21 10:52 DC Metoprolol Succinate (TopROL XL) 100 mg DAILY PO 02/23/21 09:00 02/23/21 08:15 Metoprolol Tartrate (Lopressor) 12.5 mg BID PO 02/14/21 21:00 02/17/21 11:28 DC 02/17/21 08:21 Metoprolol Tartrate (Lopressor) 25 mg BID PO 02/17/21 21:00 02/18/21 10:36 DC 02/18/21 07:42 Non-Formulary Medication ( See Comment Field Below ) REMOVE LIDODERM PATCH DAILY@21 XX 02/12/21 21:00 02/21/21 20:25 Nystatin (Mycostatin Powder, Nystop) abdominal folds, butto... BID TOP 02/12/21 21:00 02/23/21 08:17 Pantoprazole Sodium (Protonix) 40 mg BID PO 02/12/21 21:00 02/23/21 08:13 Quetiapine Fumarate (SEROquel) 25 mg QHS PRN PO insomnia 02/12/21 13:50 02/22/21 20:59 Ramelteon (Rozerem) 8 mg QHS PRN PO INSOMNIA 02/12/21 13:50 02/22/21 20:57 Senna (Senokot) 1 tab QHS PO 02/12/21 21:00 02/19/21 21:35 Sertraline HCl (Zoloft) 50 mg DAILY PO 02/13/21 09:00 02/23/21 08:13 Sucralfate (Carafate) 1 gm ACHS PO 02/13/21 12:00 02/23/21 08:14 Tramadol HCl (Ultram) 25 mg Q4HP PRN PO MODERATE PAIN (PS 5-7) 02/12/21 13:50 02/18/21 10:05 DC 02/18/21 05:32 Tramadol HCl (Ultram) 50 mg Q4HP PRN PO MODERATE PAIN (PS >5/10) 02/18/21 10:05 02/23/21 08:13 Tramadol HCl (Ultram) 50 mg QHS PO 02/19/21 21:00 02/22/21 20:52 Warfarin Sodium (Coumadin) 1 mg DAILY@17 PO 02/18/21 17:00 02/19/21 12:22 DC 02/18/21 16:40 Warfarin Sodium (Coumadin) 2.5 mg DAILY@17 PO 02/18/21 17:00 02/19/21 12:22 DC 02/18/21 16:40 Warfarin Sodium (Coumadin) 3 mg DAILY@17 PO 02/21/21 17:00 02/21/21 16:59 Warfarin Sodium (Coumadin) 5 mg DAILY@17 PO 02/17/21 17:00 02/18/21 10:21 DC 02/17/21 16:59 JOSE RAVI MD Feb 23, 2021 09:56
[2021-02-23] MEDS ORDERED: POTASSIUM CHLORIDE 10MEQ SR TABLET PO ONE (10:20)
[2021-02-23] MEDS: IRON SUCROSE 200 MG in NS 100 ML IV SCH (12:14)
--- NOTE | 2021-02-23 13:21 | IPNPDOC ---
Text Note Date of Service The patient was seen on 02/23/21. NOTE SUBJECTIVE: Ms. Vega is doing much better today, reports improvement in her breathing however still has residual shortness of breath Have been no overnight events as per the nurses. REVIEW OF SYSTEMS: The following is a completed review of systems and has been reviewed. Review of systems otherwise unremarkable. PAIN: Patient self reports no pain EYES: No recent vision changes EARS, NOSE, & THROAT: No throat pain, + dysphagia (improved) CARDIOVASCULAR: Denies chest pain or palpitations PULMONARY: + shortness of breath GASTROINTESTINAL: Denies constipation/diarrhea, +black stools GENITOURINARY: denies dysuria MUSCULOSKELETAL:generalized weakness, right foot drop NEUROLOGICAL: +bilat feet paresthesias HEMATOLOGICAL: +anemia SKIN: +sternal and abdominal incision PSYCHIATRIC: Unremarkable All other review of systems found to be negative. OBJECTIVE: PHYSICAL EXAMINATION: VITAL SIGNS: Please see below. GENERAL: Pleasant and cooperative. No acute distress. HEENT: PERRL. Extraocular movements intact. Clear conjunctiva, poor dentition CARDIOVASCULAR: Irregular rate and rhythm. No murmurs, rubs, or gallops LUNGS: Clear to auscultation bilaterally. No wheezes. No rhonchi ABDOMEN: Soft, nontender, mildly distended, Positive bowel sounds. Normal active bowel sounds NEUROLOGICAL: Alert and oriented times three. Cranial nerves II through XII grossly intact. Sensation grossly intact right ankle (no clonus/babinski) EXTREMITIES: 5\5 strength bilateral upper extremities. 5\5 strength right hip flexion and knee extension, 1/5 right ankle DF/EHL and plantar flexion. 5/5 strength in left lower extremity. SKIN: sternal incision c/d/i, pacemaker incision c/d/i -abdominal incisions with 5 exudative ulcers (less exudative) ASSESSMENT AND PLAN: 1. Congestive heart failure s/p mitral valve repair: Patient's breathing is much better today. Her dose of Lasix was increased from 20mg to 40 mg IV Lasix twice daily. Patient still has trace pedal edema bilateral legs. Electrolytes are normal Continue monitoring I's and O's and daily weight checks. 2. Chronic kidney disease stage 3B: The patient's creatinine has gone up from 1.3-1.5. Continue to withhold nephrotoxic agents/medications. Watch patient's electrolytes particularly potassium level as today's level is borderline low normal at 3.5. We might consider potassium supplementation on reassessment tomorrow. 3.iron deficiency anemia: Patient had received 2 units of blood in the past. Her hemoglobin is 9.7 today. Due to history of low iron and transferrin saturation patient was started on IV iron infusion. VS,Fishbone, I+O VS, Fishbone, I+O Laboratory Tests 02/23/21 06:29 Vital Signs Date Time Temp Pulse Resp B/P (MAP) Pulse Ox O2 Delivery O2 Flow Rate FiO2 02/23/21 08:45 16 02/23/21 08:15 81 138/68 02/23/21 06:00 98.3 96 Room Air I&O- Last 24 Hours up to 6 AM 02/23/21 06:00 Intake Total 1480 ml Balance 1480 ml Attending Note Attending Note CKD3b HFpEF s/p AVR and Mitral valve repair Iron def anemia HTN IV venofer for anemia. cont Lasix bid. volume status improving. Whitney Romero MD Feb 23, 2021 12:31 JOANNA TAM MD Feb 24, 2021 18:09
[2021-02-23 14:00] VITALS: BP 126/60
[2021-02-23] MEDS ORDERED: WARFARIN SOD 5MG TAB PO ONE (17:00)
[2021-02-23 20:00] VITALS: BP_SYST 152; BP_SYST 186; BP_DIAS 74; BP_DIAS 82
[2021-02-23] MEDS: traMADol 50 MG TAB PO SCH (20:30)
[2021-02-23] MEDS: SENNA 8.6 MG TAB (SENOKOT) PO SCH (20:31)
[2021-02-23] MEDS: GABAPENTIN 100 MG CAP PO SCH (20:31)
[2021-02-23] MEDS: **NOTE PATIENT COMMENT** MISC XX SCH (20:32)
[2021-02-23] MEDS: RAMELTEON 8 MG TAB (ROZEREM) PO PRN (20:45)
[2021-02-24] MEDS: traMADol 50 MG TAB PO PRN ×2 (00:36→08:06)
[2021-02-24] MEDS: QUEtiapine FUMARATE 25 MG TAB PO PRN ×2 (00:47→21:14)
[2021-02-24] MEDS: LEVOTHYROXINE 112MCG TABLET (0.112MG) PO SCH (05:58)
[2021-02-24] MEDS: REMEDY PHYTOPLEX Z-GUARD PASTE 113GM TUBE (FROM STOREROOM PRODUCT) TOP SCH ×4 (05:59→21:15)
[2021-02-24 06:04] VITALS: BP 128/60
[2021-02-24 07:11] LABS: BASO # 0.1 10^3/uL (0.0-0.2); BASO % 1.9 % (0.0-1.0); EOS # 0.4 10^3/uL (0.0-0.5); EOS % 8.6 % (0.0-3.0); HEMATOCRIT 33.6 % (36.0-47.0); HEMOGLOBIN 10.2 g/dl (12.0-15.5); LYMPH # 0.8 10^3/uL (1.5-5.0); LYMPH % 19.7 % (24.0-44.0); MEAN CORPUSCULAR HEMOGLOBIN 27.6 pg (27.0-33.0); MEAN CORPUSCULAR HGB CONC 30.4 g/dl (32.0-36.5); MEAN CORPUSCULAR VOLUME 90.8 fl (80.0-96.0); MONO # 0.5 10^3/uL (0.0-0.8); MONO % 12.2 % (2.0-8.0); NEUTROPHILS # 2.4 10^3/uL (1.5-8.5); NEUTROPHILS % 57.6 % (36.0-66.0); PLATELET COUNT, AUTOMATED 274 10^3/uL (150-450); WHITE BLOOD COUNT 4.2 10^3/uL (4.0-10.0)
[2021-02-24 07:23] LABS: INR 2.25; PROTHROMBIN TIME 25.2 SECONDS (12.7-14.5)
[2021-02-24] MEDS: MAGIC MOUTHWASH SUSPENSION BTL SSP SCH ×3 (07:30→16:33)
[2021-02-24 08:04] LABS: ALBUMIN 2.8 GM/DL (3.2-5.2); CALCIUM LEVEL 8.2 MG/DL (8.8-10.2); CREATININE FOR GFR 1.37 MG/DL (0.55-1.30); GLOMERULAR FILTRATION RATE 40.9 (>45); PHOSPHORUS LEVEL 3.6 MG/DL (2.5-4.9); POTASSIUM SERUM 3.7 MEQ/L (3.5-5.1)
[2021-02-24] MEDS: ACETAMINOPHEN 500 MG TAB PO SCH ×3 (08:04→21:13)
[2021-02-24] MEDS: SUCRALFATE 1 GM TAB PO SCH ×4 (08:04→21:14)
[2021-02-24] MEDS: CYANOCOBALAMIN 500 MCG TAB PO SCH (08:04)
[2021-02-24] MEDS: PANTOPRAZOLE 40MG TAB (PROTONIX) PO SCH ×2 (08:04→21:14)
[2021-02-24] MEDS: FERROUS SULFATE 325MG TAB PO SCH (08:05)
[2021-02-24] MEDS: amLODIPine 5 MG TAB PO SCH (08:05)
[2021-02-24] MEDS: SERTRALINE HCL 50 MG TAB PO SCH (08:05)
[2021-02-24] MEDS: ATORVASTATIN 20 MG TAB PO SCH (08:05)
[2021-02-24] MEDS: FUROSEMIDE 40 MG TAB PO SCH ×2 (08:05→16:33)
[2021-02-24] MEDS: METOPROLOL SUCC (TopROL XL) 100MG *XL* TAB PO SCH (08:05)
[2021-02-24] MEDS: LIDOCAINE 5% (LIDODERM) PATCH TD SCH (08:06)
[2021-02-24] MEDS: NYSTATIN 100,000 UNITS/GM TOPICAL PWD 15 GM TOP SCH ×2 (08:06→21:00)
[2021-02-24] MEDS: SANTYL OINT 30GM TOP SCH ×2 (08:07→21:15)
[2021-02-24] MEDS: DOCUSATE SODIUM 100MG CAPSULE PO SCH ×2 (08:11→21:14)
[2021-02-24] MEDS: IRON SUCROSE 200 MG in NS 100 ML IV SCH (12:34)
[2021-02-24 14:00] VITALS: BP 123/60
[2021-02-24] MEDS ORDERED: WARFARIN SOD 3MG TAB PO SCH (17:00)
--- NOTE | 2021-02-24 18:11 | IPNPDOC ---
Text Note Date of Service The patient was seen on 02/24/21. NOTE SUBJECTIVE: Patient was seen today morning she was comfortably laying in the bed not in any acute distress. Patient states her breathing is much better. No overnight events as per the nurses. The patient has been walking without any difficulty in breathing. OBJECTIVE: PHYSICAL EXAMINATION: VITAL SIGNS: Please see below. GENERAL: Pleasant and cooperative. No acute distress. HEENT: PERRL. Extraocular movements intact. Clear conjunctiva, poor dentition CARDIOVASCULAR: Irregular rate and rhythm. No murmurs, rubs, or gallops LUNGS: Clear to auscultation bilaterally. No wheezes. No rhonchi ABDOMEN: Soft, nontender, mildly distended, Positive bowel sounds. Normal active bowel sounds NEUROLOGICAL: Alert and oriented times three. Cranial nerves II through XII grossly intact. Sensation grossly intact right ankle (no clonus/babinski) EXTREMITIES: 5\5 strength bilateral upper extremities. 5\5 strength right hip flexion and knee extension, 1/5 right ankle DF/EHL and plantar flexion. 5/5 strength in left lower extremity. SKIN: sternal incision c/d/i, pacemaker incision c/d/i -abdominal incisions ASSESSMENT AND PLAN 1.Congestive Heart Failure possibly secondary to Longstanding HTN vs recent mitral and aortic valve repair: Patient's echo was done in the morning-results are still pending. Patient continues to be on Lasix 40 mg IV twice daily. Patient's pedal edema looks better but has not resolved. Continue monitoring I's and O's and daily weight checks. Her urinary output is good. 2. Chronic kidney disease stage 3b: -Patient's creatinine levels are Improving . Today Cr was 1.37. -GFR continues to be 40.9 ml-Improving from yesterday. -Continue to hold nephrotoxic agents/medications. -Patient's potassium levels stay normal. -Urinary output normal. 3. Iron deficiency anemia: -Patient reports no blood in her stools or urine. -Patient's hemoglobin has gone up to 10.2 from 9.7. -We will reassess iron levels however she continues to get IV iron infusions every 24 hours VS,Fishbone, I+O VS, Fishbone, I+O Laboratory Tests 02/24/21 06:13 Vital Signs Date Time Temp Pulse Resp B/P (MAP) Pulse Ox O2 Delivery O2 Flow Rate FiO2 02/24/21 08:36 17 02/24/21 08:05 80 128/60 02/24/21 06:04 97.8 97 Room Air I&O- Last 24 Hours up to 6 AM 02/24/21 06:00 Intake Total 830 ml Output Total 0 ml Balance 830 ml Attending Note Attending Note HFpEF LVEF 65%, AVR, Mitral valve replacement CKD3b HTN Iron def anemia. cont IV venofer, cont Lasix. Renal function stable. GME ATTESTATION GME ATTESTATION My faculty preceptor for this patient encounter was physically present during the encounter and was fully available. All aspects of the patient interview, examination, medical decision making process, and medical care plan development were reviewed and approved by the faculty preceptor. The faculty preceptor is aware and concurs with the plan as stated in the body of this note and will attest to such by his/her cosignature. Whitney Romero MD Feb 24, 2021 11:47 JOANNA TAM MD Feb 24, 2021 18:11
[2021-02-24 21:00] VITALS: BP 120/62
[2021-02-24] MEDS: RAMELTEON 8 MG TAB (ROZEREM) PO PRN (21:13)
[2021-02-24] MEDS: traMADol 50 MG TAB PO SCH (21:14)
[2021-02-24] MEDS: GABAPENTIN 100 MG CAP PO SCH (21:14)
[2021-02-24] MEDS: SENNA 8.6 MG TAB (SENOKOT) PO SCH (21:14)
[2021-02-24] MEDS: **NOTE PATIENT COMMENT** MISC XX SCH (21:15)
[2021-02-25] MEDS: traMADol 50 MG TAB PO PRN ×2 (02:10→06:03)
[2021-02-25 06:00] VITALS: BP 136/72
[2021-02-25] MEDS: REMEDY PHYTOPLEX Z-GUARD PASTE 113GM TUBE (FROM STOREROOM PRODUCT) TOP SCH ×4 (06:00→23:56)
[2021-02-25] MEDS: LEVOTHYROXINE 112MCG TABLET (0.112MG) PO SCH (06:02)
[2021-02-25 06:38] LABS: BASO # 0.1 10^3/uL (0.0-0.2); BASO % 1.8 % (0.0-1.0); EOS # 0.4 10^3/uL (0.0-0.5); EOS % 7.9 % (0.0-3.0); HEMATOCRIT 33.8 % (36.0-47.0); HEMOGLOBIN 10.4 g/dl (12.0-15.5); LYMPH # 0.9 10^3/uL (1.5-5.0); LYMPH % 19.6 % (24.0-44.0); MEAN CORPUSCULAR HEMOGLOBIN 27.9 pg (27.0-33.0); MEAN CORPUSCULAR HGB CONC 30.8 g/dl (32.0-36.5); MEAN CORPUSCULAR VOLUME 90.6 fl (80.0-96.0); MONO # 0.6 10^3/uL (0.0-0.8); MONO % 13.2 % (2.0-8.0); NEUTROPHILS # 2.6 10^3/uL (1.5-8.5); NEUTROPHILS % 57.3 % (36.0-66.0); PLATELET COUNT, AUTOMATED 295 10^3/uL (150-450); RED BLOOD COUNT 3.73 10^6/uL (4.00-5.40); WHITE BLOOD COUNT 4.5 10^3/uL (4.0-10.0)
[2021-02-25 06:47] LABS: INR 2.99; PROTHROMBIN TIME 31.4 SECONDS (12.7-14.5)
[2021-02-25 06:56] LABS: CALCIUM LEVEL 8.7 MG/DL (8.8-10.2); CREATININE FOR GFR 1.33 MG/DL (0.55-1.30); GLOMERULAR FILTRATION RATE 42.4 (>45); POTASSIUM SERUM 3.6 MEQ/L (3.5-5.1)
[2021-02-25] MEDS: MAGIC MOUTHWASH SUSPENSION BTL SSP SCH ×3 (07:30→17:30)
[2021-02-25] MEDS: NYSTATIN 100,000 UNITS/GM TOPICAL PWD 15 GM TOP SCH ×2 (09:00→20:17)
[2021-02-25] MEDS: DOCUSATE SODIUM 100MG CAPSULE PO SCH ×2 (09:00→20:17)
[2021-02-25] MEDS: FUROSEMIDE 40 MG TAB PO SCH ×2 (09:11→18:00)
[2021-02-25] MEDS: FERROUS SULFATE 325MG TAB PO SCH (09:11)
[2021-02-25] MEDS: METOPROLOL SUCC (TopROL XL) 100MG *XL* TAB PO SCH (09:12)
[2021-02-25] MEDS: PANTOPRAZOLE 40MG TAB (PROTONIX) PO SCH ×2 (09:12→20:17)
[2021-02-25] MEDS: SUCRALFATE 1 GM TAB PO SCH ×4 (09:12→20:17)
[2021-02-25] MEDS: ATORVASTATIN 20 MG TAB PO SCH (09:14)
[2021-02-25] MEDS: ACETAMINOPHEN 500 MG TAB PO SCH ×3 (09:14→21:52)
[2021-02-25] MEDS: CYANOCOBALAMIN 500 MCG TAB PO SCH (09:15)
[2021-02-25] MEDS: amLODIPine 5 MG TAB PO SCH (09:15)
[2021-02-25] MEDS: LIDOCAINE 5% (LIDODERM) PATCH TD SCH (09:15)
[2021-02-25] MEDS: SERTRALINE HCL 50 MG TAB PO SCH (09:15)
--- NOTE | 2021-02-25 09:39 | ECHO ---
ECHOCARDIOGRAM DATE OF PROCEDURE: 02/24/2021 Age: 65 Gender: Female Height: 155 cm Weight: 74 kg REFERRING PHYSICIAN: Whitney Romero MD INDICATION: Congestive heart failure MEASUREMENTS: IVS 1.3 cm LV 4.4 cm LVPW 1.3 cm LA 4.6 cm Mitral E wave velocity 78 Mitral A wave 40 E prime septal 3.9 E prime lateral 6.9 FINDINGS: This study is of fair technical quality. Patient is in AV sequentially paced rhythm. Left ventricle is normal size, mild left ventricular hypertrophy is noted. Overall likely hyperdynamic LV systolic function with estimated EF around 70% based on very limited views. There is septal wall motor abnormality likely related to pacemaker driven rhythm. Right ventricle was poorly seen, but grossly appears normal. Both atria are enlarged. There is an echo artifact in right-sided heart chambers consistent with pacemaker lead. Aortic and mitral valves are bioprosthetic; both are poorly visualized and I cannot comment much on their structure, but they seem to be well seated. Tricuspid valve appears normal. Pulmonic valve was not visualized. Small pericardial effusion is noted. Inferior vena cava was not seen. Aortic root is normal even though it was poorly seen. Ascending aorta and aortic arch were not well visualized. Doppler interrogation reveals no significant insufficiency of aortic prosthesis and mean gradient 8 mmHg which corresponds to normal values. There is no significant transmitral gradient based on limited interrogation. I cannot comment on possible insufficiency based on available views, there is minimal if any. There is trace tricuspid insufficiency. Calculated pulmonary artery pressure is in minimum and high 20's. Evaluation of diastolic function is inconclusive due to presence of mitral bioprosthesis. Based on available values, I estimate at least grade 2 diastolic dysfunction. CONCLUSIONS: 1. Study is of fair to poor technical quality, underlying pacemaker driven rhythm. 2. Normal LV size with mild LVH and hyperdynamic LV systolic function, estimated LVEF 70%. Septal wall motion abnormality related to underlying pacing. 3. Poorly visualized bioprosthesis in aortic position that is well seated. No stenosis or insufficiency. 4. Poorly visualized bioprosthesis in mitral position that is well seated. Based on limited evaluation no significant stenosis or insufficiency. 5. Unable to estimate central venous pressure. 6. At least borderline pulmonary hypertension. 7. Small pericardial effusion. Edited: aftab 02/26/2021 0737 [email or web address]
--- NOTE | 2021-02-25 10:49 | IPNPDOC ---
PM&R Progress Note DATE OF SERVICE: Feb 24, 2021 Corrugator Supervisor Progress Note Subjective: Patient stating she is moving better and is happy to go home [place]. She REVIEW OF SYSTEMS: The following is a completed review of systems and has been reviewed. Review of systems otherwise unremarkable. PAIN: Patient self reports no pain EYES: No recent vision changes EARS, NOSE, & THROAT: No throat pain, + dysphagia (improved) CARDIOVASCULAR: Denies chest pain or palpitations PULMONARY: + shortness of breath (resolved) GASTROINTESTINAL: Denies constipation/diarrhea, +black stools GENITOURINARY: denies dysuria MUSCULOSKELETAL:generalized weakness, right foot drop NEUROLOGICAL: +bilat feet paresthesias HEMATOLOGICAL: +anemia (improving) SKIN: +sternal and abdominal incision PSYCHIATRIC: Unremarkable All other review of systems found to be negative. PHYSICAL EXAMINATION: VITAL SIGNS: Please see below. GENERAL: Pleasant and cooperative. No acute distress. HEENT: PERRL. Extraocular movements intact. Clear conjunctiva, poor dentition CARDIOVASCULAR: Irregular rate and rhythm. No murmurs, rubs, or gallops LUNGS: Clear to auscultation bilaterally. No wheezes. No rhonchi ABDOMEN: Soft, nontender, mildly distended, Positive bowel sounds. Normal active bowel sounds NEUROLOGICAL: Alert and oriented times three. Cranial nerves II through XII grossly intact. Sensation grossly intact right ankle (no clonus/babinski) EXTREMITIES: 5\5 strength bilateral upper extremities. 5\5 strength right hip flexion and knee extension, 1/5 right ankle DF/EHL and plantar flexion. 5/5 strength in left lower extremity. SKIN: sternal incision c/d/i, pacemaker incision c/d/i -abdominal incisions healing ASSESSMENT:65-year-old F with past medical history of prior aortic valve repair who presents status post re-do aortic valve replacement and mitral valve replacement PLAN: 1. Rehab- PT/OT advance mobility and ADLs, strengthen/stretch/maintain ROM all 4 limbs, ambulating further with RW -SUPPORT TEAM MEMBER for dysphagia work-up, magic mouth wash for optimal oral care, upgraded to level 4 diet per SUPPORT TEAM MEMBER eval 2. Cardiac- s/p aortic valve and mitral mechanical valve replacement and pacemaker placement on Coumadin, given known GI bleed discussed with hospitalist that it would be safer for the patient if the INR goal was narrowed to 2.5-3, cont beta-apoorva- sternal and pacemaker precautions, avoid driving for 6 months -EKG ordered 02-17-21 as patient noted to have irregular HR and has been tachycardic, confirmed +Afib with RVR, discussed case with medicine on how to proceed, patient has been on low short acting dose beta-apoorva, but due to some soft BPs difficult maximize this med- called Dr. Santo 02-18-21 who gave informal consult over the phone and he recommended switching to Toprol daily with holding parameters and to give a one time dose of digoxin 0.25mg- hospitalist made aware of this plan and is in agreement- tachycardia resolved -Acute CHF exacerbation 02-17-21 patient noted in therapy to be more short of breath, +weight gain, BNP elevated to 7k, CXR cannot exclude effusion, one time dose of IV lasix ordered after which patient says she felt better, however patient is getting more short of breath in therapy 02-19-21 with BNP still elevated to 6k, repeat CXR showing vascular congestion, discussed with renal and hospitalist who started 2 day course of IV lasix and has now been on oral lasix, patient exercise tolerance and respiratory symptoms much improved- recs and assistance appreciated -HLD cont statin -medicine consulted to assist in overall management -need f/u cardiac surgeon and EP 3. Neuro- patient reporting right foot drop since her surgery, on exam she has both dorsiflexion and plantar flexion weakness with decreased sensation on the dorsal and plantar surface of her right foot- suspect this is a sciatic nerve injury involving both peroneal and tibial nerves from compression at the level of the buttock region- patient reports that when her legs are hanging off the chair her feet go numb, patient instructed to no longer let her legs hang off th e chair and to keep them elevated to alleviate pressure on sciatic nerve, low suspicion for multilevel spine root compression as patient denies back pain -could be a lumbosacral plexopathy injury, retroperitoneal hematoma ruled out via CT non-contrast 02-14-21 -will refer to neurology for NCS/EMG on d/c -consult placed with rn clinical appeals for AFO 3. Resp- monitor for infection 4. Endo- hx of hypothyroidism,TSH 18, and FT/3 low, patient's synthroid increased to 112mg daily- patient educated on importance of taking synthroid on an empty stomach which she admits she never has as she prefers to take her medications with Pepsi, f/u with PMD for further dose adjustment -d/c ISS< figner sticks BID are very well controlled, will d/c altogether per patient request -recent A1C f 7.1%, will monitor FS while here and avoid metformin given CKD, consistent carb diet 5. Heme- anemia with Hgb 7.7% on 02-13-21 s/p 2 units rbcs, patient does have +FOBT will moitor H/H and cont iron supplements, renal following and patient receiving Venofer 6. GI- + GI bleed (+FOBT) while on Coumadin and ASA 325mg, on 02-18-21 called cardiac surgeon, Dr. Crews's office and spoke with his [employer] SUPERVISOR [employer] Olga who said it ok to take patient on aspirin entirely given GI bleed, recs appreciated - cont protonix 40mg BID and sucralfate, cont to monitor H/H which is relatively stable post transfusion, -consulted surgery due to drop in Hgb with +FOBT to see if inhouse scoping might be warranted given usp need for anticoagulation-Dr. Sotomayor's recs appreciated will cont to monitor H/H which has been stable 7. Pain- tramadol and tylenol, gabapentin -lidoderm patch to sternum 8. DVT ppx- teds and on coumadin 9. Psych- cont zoloft for depression, seroquel prn insomnia and rozerem 10. Renal- hx of CKD monitor for NEHEMIAS, renal consulted for fluid management 11. Dispo- plan for home 02-27-21, progressing towards goals, patient will need follow-up with neurology, cardiac surgeon, sewer pipe layer, renal physician, and GI/general surgery DME -patient require a right custom fit carbon spiral AFO. She is ambulatory with a walker and has profound weakness in both dorsiflexion and plantar flexion following cardiac surgery with numbness. This weakness will cause her to catch her toe when she walks and icnrease her chance of falling. She will benefit from a custom fit carbon fiber AFO to provide dorsiflexion lift. Allergies Coded Allergies: phenytoin (Verified Allergy, Mild, HAND SWELLING, 02/12/21) Vital Signs Vital Signs Date Time Temp Pulse Resp B/P (MAP) Pulse Ox O2 Delivery O2 Flow Rate FiO2 02/25/21 09:15 79 136/72 02/25/21 06:33 18 02/25/21 06:00 97.9 96 Room Air Laboratory Data CBC/BMP Laboratory Tests 02/25/21 05:44 Labs 24H Laboratory Tests 2 02/25/21 05:44: Immature Granulocyte % (Auto) 0.2, Neutrophils (%) (Auto) 57.3, Lymphocytes (%) (Auto) 19.6L, Monocytes (%) (Auto) 13.2H, Eosinophils (%) (Auto) 7.9H, Basophils (%) (Auto) 1.8H, Neutrophils # (Auto) 2.6, Lymphocytes # (Auto) 0.9L, Monocytes # (Auto) 0.6, Eosinophils # (Auto) 0.4, Basophils # (Auto) 0.1, Nucleated Red Blood Cells % (auto) 0.0, Prothrombin Time 31.4H, Prothromb Time International Ratio 2.99, Anion Gap 5L, Glomerular Filtration Rate 42.4L, Calcium Level 8.7L 02/25/21 06:16: Bedside Glucose (Misc Panel) 163H Microbiology Microbiology 02/22/21 Stool Occult Blood (NAVI) - Final, Complete Current Medications Current Medications Current Medications Medications (Trade) Dose Ordered Sig/Constantin Route PRN Reason Start Time Stop Time Status Last Admin Dose Admin Acetaminophen (Tylenol Tab) 1,000 mg TID PO 02/12/21 21:00 02/25/21 09:14 Al Hydrox/Mg Hydrox/Simethicone (Mylanta) 30 ml Q4HP PRN PO DYSPEPSIA 02/12/21 13:50 Amlodipine Besylate (Norvasc) 5 mg DAILY PO 02/22/21 09:00 02/25/21 09:15 Aspirin (Ecotrin) 325 mg DAILY PO 02/13/21 09:00 02/18/21 10:25 DC 02/18/21 07:41 Atorvastatin Calcium (Lipitor) 40 mg DAILY PO 02/13/21 09:00 02/25/21 09:14 Collagenase (SantyL) 1 dose BID TOP 02/14/21 09:00 02/24/21 21:15 Collagenase (SantyL) apply to abdominal surgi... BID TOP 02/14/21 21:00 UNV Cyanocobalamin (Vitamin B12) 500 mcg QAM PO 02/13/21 09:00 02/25/21 09:15 Dextrose (Dextrose 50%) 25 ml ASDIRECTED PRN IV SEE LABEL COMMENTS 02/12/21 13:50 Docusate Sodium (Colace) 100 mg BID PO 02/12/21 21:00 02/24/21 21:14 Ferrous Sulfate (Ferrous Sulfate) 325 mg DAILY PO 02/13/21 09:00 02/25/21 09:11 Furosemide (LASIX injection) 40 mg BID@09,17 IV 02/19/21 17:55 02/21/21 14:53 DC 02/21/21 09:29 Furosemide (Lasix) 40 mg BID@0900,1700 PO 02/22/21 17:00 02/25/21 09:11 Furosemide (Lasix) 40 mg DAILY PO 02/19/21 11:15 02/20/21 10:25 DC 02/19/21 14:31 Furosemide (Lasix) 40 mg DAILY PO 02/22/21 09:00 02/22/21 12:35 DC 02/22/21 10:05 Gabapentin (Neurontin) 200 mg QHS PO 02/12/21 21:00 02/18/21 10:05 DC 02/17/21 20:06 Gabapentin (Neurontin) 400 mg QHS PO 02/18/21 21:00 02/24/21 21:14 Glucagon (Glucagon) 1 mg ASDIRECTED PRN SC SEE LABEL COMMENTS 02/12/21 13:50 Glucose (Glucose) 16 GM ASDIRECTED PRN PO SEE LABEL COMMENTS 02/12/21 13:50 Home Med (Home Med List Complete!) ASDIRECTED XX 02/12/21 19:40 02/12/21 19:46 DC Insulin Human Lispro (HumaLOG INSULIN) SEE PROTOCOL TABLE AC SC 02/13/21 07:30 02/16/21 11:51 DC 02/16/21 09:01 Insulin Human Lispro (HumaLOG INSULIN) SEE PROTOCOL TABLE QHS SC 02/12/21 21:00 02/16/21 11:51 DC Iron 200 mg/ Sodium Chloride 110 ml @ 110 mls/hr Q24H IV 02/23/21 12:00 02/25/21 12:59 02/24/21 12:34 Levothyroxine Sodium (Synthroid) 88 mcg DAILY@06 PO 02/13/21 06:00 02/18/21 12:54 DC 02/18/21 05:31 Levothyroxine Sodium (Synthroid) 100 mcg DAILY@06 PO 02/19/21 06:00 02/19/21 09:46 DC 02/19/21 05:49 Levothyroxine Sodium (Synthroid) 112 mcg DAILY@06 PO 02/20/21 06:00 02/25/21 06:02 Lidocaine (Lidoderm Patch) 1 patch DAILY TD 02/13/21 09:00 02/19/21 13:46 DC 02/14/21 09:04 Lidocaine (Lidoderm Patch) 1 patch DAILY TD 02/19/21 14:00 02/25/21 09:15 Lidocaine/ Diphenhydr/Alum/ Mg/Simeth (Magic Mouthwash) 5ML AC SSP 02/13/21 12:00 02/21/21 09:34 Metoprolol Succinate (TopROL XL) 25 mg BID PO 02/12/21 21:00 02/14/21 09:47 DC 02/14/21 09:06 Metoprolol Succinate (TopROL XL) 75 mg DAILY PO 02/18/21 14:00 02/22/21 14:59 DC 02/22/21 10:04 Metoprolol Succinate (TopROL XL) 100 mg DAILY PO 02/18/21 09:00 02/18/21 10:52 DC Metoprolol Succinate (TopROL XL) 100 mg DAILY PO 02/23/21 09:00 02/25/21 09:12 Metoprolol Tartrate (Lopressor) 12.5 mg BID PO 02/14/21 21:00 02/17/21 11:28 DC 02/17/21 08:21 Metoprolol Tartrate (Lopressor) 25 mg BID PO 02/17/21 21:00 02/18/21 10:36 DC 02/18/21 07:42 Non-Formulary Medication ( See Comment Field Below ) REMOVE LIDODERM PATCH DAILY@21 XX 02/12/21 21:00 02/24/21 21:15 Nystatin (Mycostatin Powder, Nystop) abdominal folds, butto... BID TOP 02/12/21 21:00 02/24/21 08:06 Pantoprazole Sodium (Protonix) 40 mg BID PO 02/12/21 21:00 02/25/21 09:12 Quetiapine Fumarate (SEROquel) 25 mg QHS PRN PO insomnia 02/12/21 13:50 02/24/21 21:14 Ramelteon (Rozerem) 8 mg QHS PRN PO INSOMNIA 02/12/21 13:50 02/24/21 21:13 Senna (Senokot) 1 tab QHS PO 02/12/21 21:00 02/24/21 21:14 Sertraline HCl (Zoloft) 50 mg DAILY PO 02/13/21 09:00 02/25/21 09:15 Sucralfate (Carafate) 1 gm ACHS PO 02/13/21 12:00 02/25/21 09:12 Tramadol HCl (Ultram) 25 mg Q4HP PRN PO MODERATE PAIN (PS 5-7) 02/12/21 13:50 02/18/21 10:05 DC 02/18/21 05:32 Tramadol HCl (Ultram) 50 mg Q4HP PRN PO MODERATE PAIN (PS >5/10) 02/18/21 10:05 02/25/21 06:03 Tramadol HCl (Ultram) 50 mg QHS PO 02/19/21 21:00 02/24/21 21:14 Warfarin Sodium (Coumadin) 1 mg DAILY@17 PO 02/18/21 17:00 02/19/21 12:22 DC 02/18/21 16:40 Warfarin Sodium (Coumadin) 2.5 mg DAILY@17 PO 02/18/21 17:00 02/19/21 12:22 DC 02/18/21 16:40 Warfarin Sodium (Coumadin) 3 mg DAILY@17 PO 02/21/21 17:00 02/23/21 10:03 DC 02/21/21 16:59 Warfarin Sodium (Coumadin) 5 mg DAILY@17 PO 02/17/21 17:00 02/18/21 10:21 DC 02/17/21 16:59 Warfarin Sodium (Coumadin) 5 mg DAILY@17 PO 02/25/21 17:00 UNV Warfarin Sodium (Coumadin) 6 mg DAILY@17 PO 02/24/21 17:00 02/25/21 10:40 DC 02/24/21 16:33 JOSE RAVI MD Feb 25, 2021 10:49
[2021-02-25] MEDS: IRON SUCROSE 200 MG in NS 100 ML IV SCH (12:34)
[2021-02-25] MEDS: SANTYL OINT 30GM TOP SCH ×2 (12:36→20:18)
--- NOTE | 2021-02-25 13:21 | IPNPDOC ---
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 REVIEW OF SYSTEMS: The following is a completed review of systems and has been reviewed. Review of systems otherwise unremarkable. PAIN: Patient self reports no pain EYES: No recent vision changes EARS, NOSE, & THROAT: No throat pain, + dysphagia (improved) CARDIOVASCULAR: Denies chest pain or palpitations PULMONARY: + shortness of breath (resolved) GASTROINTESTINAL: Denies constipation/diarrhea, +black stools GENITOURINARY: denies dysuria MUSCULOSKELETAL:generalized weakness, right foot drop NEUROLOGICAL: +bilat feet paresthesias HEMATOLOGICAL: +anemia (improving) SKIN: +sternal and abdominal incision PSYCHIATRIC: Unremarkable All other review of systems found to be negative. PHYSICAL EXAMINATION: VITAL SIGNS: Please see below. GENERAL: Pleasant and cooperative. No acute distress. HEENT: PERRL. Extraocular movements intact. Clear conjunctiva, poor dentition CARDIOVASCULAR: Irregular rate and rhythm. No murmurs, rubs, or gallops LUNGS: Clear to auscultation bilaterally. No wheezes. No rhonchi ABDOMEN: Soft, nontender, mildly distended, Positive bowel sounds. Normal active bowel sounds NEUROLOGICAL: Alert and oriented times three. Cranial nerves II through XII grossly intact. Sensation grossly intact right ankle (no clonus/babinski) EXTREMITIES: 5\5 strength bilateral upper extremities. 5\5 strength right hip flexion and knee extension, 1/5 right ankle DF/EHL and plantar flexion. 5/5 str ength in left lower extremity. SKIN: sternal incision c/d/i, pacemaker incision c/d/i -abdominal incisions healing ASSESSMENT:65-year-old F with past medical history of prior aortic valve repair who presents status post re-do aortic valve replacement and mitral valve replacement PLAN: 1. Rehab- PT/OT advance mobility and ADLs, strengthen/stretch/maintain ROM all 4 limbs, ambulating further with RW -EXTRACTING MACHINE OPERATOR for dysphagia work-up, magic mouth wash for optimal oral care, upgraded to level 4 diet per EXTRACTING MACHINE OPERATOR eval 2. Cardiac- s/p aortic valve and mitral mechanical valve replacement and pacemaker placement on Coumadin, given known GI bleed discussed with hospitalist that it would be safer for the patient if the INR goal was narrowed to 2.5-3, cont beta-apoorva- sternal and pacemaker precautions, avoid driving for 6 months -EKG ordered 02-17-21 as patient noted to have irregular HR and has been tachycardic, confirmed +Afib with RVR, discussed case with medicine on how to proceed, patient has been on low short acting dose beta-apoorva, but due to some soft BPs difficult maximize this med- called Dr. Santo 02-18-21 who gave informal consult over the phone and he recommended switching to Toprol daily with holding parameters and to give a one time dose of digoxin 0.25mg- hospital ist made aware of this plan and is in agreement- tachycardia resolved -Acute CHF exacerbation 02-17-21 patient noted in therapy to be more short of breath, +weight gain, BNP elevated to 7k, CXR cannot exclude effusion, one time dose of IV lasix ordered after which patient says she felt better, however patient is getting more short of breath in therapy 02-19-21 with BNP still elevated to 6k, repeat CXR showing vascular congestion, discussed with renal and hospitalist who started 2 day course of IV lasix and has now been on oral lasix, patient exercise tolerance and respiratory symptoms much improved- recs and assistance appreciated -HLD cont statin -medicine consulted to assist in overall management -need f/u cardiac surgeon and EP 3. Neuro- patient reporting right foot drop since her surgery, on exam she has both dorsiflexion and plantar flexion weakness with decreased sensation on the dorsal and plantar surface of her right foot- suspect this is a sciatic nerve injury involving both peroneal and tibial nerves from compression at the level of the buttock region- patient reports that when her legs are hanging off the chair her feet go numb, patient instructed to no longer let her legs hang off the chair and to keep them elevated to alleviate pressure on sciatic nerve, low suspicion for multilevel spine root compression as patient denies back pain -could be a lumbosacral plexopathy injury, retroperitoneal hematoma ruled out via CT non-contrast 02-14-21, patient did go into asystole while at [facility], this may be an ischemic injury -will refer to neurology for NCS/EMG on d/c -consult placed with die reamer for AFO 3. Resp- monitor for infection 4. Endo- hx of hypothyroidism,TSH 18, and FT/3 low, patient's Synthroid increased to 112mg daily- patient educated on importance of taking synthroid on an empty stomach which she admits she never has as she prefers to take her medications with Pepsi, f/u with PMD for further dose adjustment -d/c ISS< finger sticks BID are very well controlled, will d/c altogether per patient request -recent A1C f 7.1%, will monitor FS while here and avoid metformin given CKD, consistent carb diet 5. Heme- anemia with Hgb 7.7% on 02-13-21 s/p 2 units rbcs, patient does have +FOBT will moitor H/H and cont iron supplements, renal following and patient receiving Venofer 6. GI- + GI bleed (+FOBT) while on Coumadin and ASA 325mg, on 02-18-21 called cardiac surgeon, Dr. Crews's office and spoke with his CANCER CENTER DIRECTOR Olga who said it ok to take patient on aspirin entirely given GI bleed, recs appreciated - cont protonix 40mg BID and sucralfate, cont to monitor H/H which is relatively stable post transfusion, -consulted surgery due to drop in Hgb with +FOBT to see if inhouse scoping might be warranted given long-term need for anticoagulation-Dr. Murray's recs appreciated will cont to monitor H/H which has been stable 7. Pain- tramadol and tylenol, gabapentin -lidoderm patch to sternum 8. DVT ppx- teds and on coumadin 9. Psych- cont zoloft for depression, seroquel prn insomnia and rozerem 10. Renal- hx of CKD monitor for NEHEMIAS, renal consulted for fluid management 11. Dispo- plan for home 02-27-21, progressing towards goals, patient will need follow-up with neurology, cardiac surgeon, audit clerks supervisor, renal physician, and GI/general surgery Allergies Coded Allergies: phenytoin (Verified Allergy, Mild, HAND SWELLING, 02/12/21) Vital Signs Vital Signs Date Time Temp Pulse Resp B/P (MAP) Pulse Ox O2 Delivery O2 Flow Rate FiO2 02/25/21 09:15 79 136/72 02/25/21 06:33 18 02/25/21 06:00 97.9 96 Room Air Laboratory Data CBC/BMP Laboratory Tests 02/25/21 05:44 Labs 24H Laboratory Tests 2 02/25/21 05:44: Immature Granulocyte % (Auto) 0.2, Neutrophils (%) (Auto) 57.3, Lymphocytes (%) (Auto) 19.6L, Monocytes (%) (Auto) 13.2H, Eosinophils (%) (Auto) 7.9H, Basophils (%) (Auto) 1.8H, Neutrophils # (Auto) 2.6, Lymphocytes # (Auto) 0.9L, Monocytes # (Auto) 0.6, Eosinophils # (Auto) 0.4, Basophils # (Auto) 0.1, Nucleated Red Blood Cells % (auto) 0.0, Prothrombin Time 31.4H, Prothromb Time International Ratio 2.99, Anion Gap 5L, Glomerular Filtration Rate 42.4L, Calcium Level 8.7L 02/25/21 06:16: Bedside Glucose (Misc Panel) 163H Microbiology Microbiology 02/22/21 Stool Occult Blood (NAVI) - Final, Complete Current Medications Current Medications Current Medications Medications (Trade) Dose Ordered Sig/Constantin Route PRN Reason Start Time Stop Time Status Last Admin Dose Admin Acetaminophen (Tylenol Tab) 1,000 mg TID PO 02/12/21 21:00 02/25/21 09:14 Al Hydrox/Mg Hydrox/Simethicone (Mylanta) 30 ml Q4HP PRN PO DYSPEPSIA 02/12/21 13:50 Amlodipine Besylate (Norvasc) 5 mg DAILY PO 02/22/21 09:00 02/25/21 09:15 Aspirin (Ecotrin) 325 mg DAILY PO 02/13/21 09:00 02/18/21 10:25 DC 02/18/21 07:41 Atorvastatin Calcium (Lipitor) 40 mg DAILY PO 02/13/21 09:00 02/25/21 09:14 Collagenase (SantyL) 1 dose BID TOP 02/14/21 09:00 02/25/21 12:36 Collagenase (SantyL) apply to abdominal surgi... BID TOP 02/14/21 21:00 UNV Cyanocobalamin (Vitamin B12) 500 mcg QAM PO 02/13/21 09:00 02/25/21 09:15 Dextrose (Dextrose 50%) 25 ml ASDIRECTED PRN IV SEE LABEL COMMENTS 02/12/21 13:50 Docusate Sodium (Colace) 100 mg BID PO 02/12/21 21:00 02/24/21 21:14 Ferrous Sulfate (Ferrous Sulfate) 325 mg DAILY PO 02/13/21 09:00 02/25/21 09:11 Furosemide (LASIX injection) 40 mg BID@09,17 IV 02/19/21 17:55 02/21/21 14:53 DC 02/21/21 09:29 Furosemide (Lasix) 40 mg BID@0900,1700 PO 02/22/21 17:00 02/25/21 09:11 Furosemide (Lasix) 40 mg DAILY PO 02/19/21 11:15 02/20/21 10:25 DC 02/19/21 14:31 Furosemide (Lasix) 40 mg DAILY PO 02/22/21 09:00 02/22/21 12:35 DC 02/22/21 10:05 Gabapentin (Neurontin) 200 mg QHS PO 02/12/21 21:00 02/18/21 10:05 DC 02/17/21 20:06 Gabapentin (Neurontin) 400 mg QHS PO 02/18/21 21:00 02/24/21 21:14 Glucagon (Glucagon) 1 mg ASDIRECTED PRN SC SEE LABEL COMMENTS 02/12/21 13:50 Glucose (Glucose) 16 GM ASDIRECTED PRN PO SEE LABEL COMMENTS 02/12/21 13:50 Home Med (Home Med List Complete!) ASDIRECTED XX 02/12/21 19:40 02/12/21 19:46 DC Insulin Human Lispro (HumaLOG INSULIN) SEE PROTOCOL TABLE AC SC 02/13/21 07:30 02/16/21 11:51 DC 02/16/21 09:01 Insulin Human Lispro (HumaLOG INSULIN) SEE PROTOCOL TABLE QHS SC 02/12/21 21:00 02/16/21 11:51 DC Iron 200 mg/ Sodium Chloride 110 ml @ 110 mls/hr Q24H IV 02/23/21 12:00 02/25/21 12:59 DC 02/25/21 12:34 Levothyroxine Sodium (Synthroid) 88 mcg DAILY@06 PO 02/13/21 06:00 02/18/21 12:54 DC 02/18/21 05:31 Levothyroxine Sodium (Synthroid) 100 mcg DAILY@06 PO 02/19/21 06:00 02/19/21 09:46 DC 02/19/21 05:49 Levothyroxine Sodium (Synthroid) 112 mcg DAILY@06 PO 02/20/21 06:00 02/25/21 06:02 Lidocaine (Lidoderm Patch) 1 patch DAILY TD 02/13/21 09:00 02/19/21 13:46 DC 02/14/21 09:04 Lidocaine (Lidoderm Patch) 1 patch DAILY TD 02/19/21 14:00 02/25/21 09:15 Lidocaine/ Diphenhydr/Alum/ Mg/Simeth (Magic Mouthwash) 5ML AC SSP 02/13/21 12:00 02/21/21 09:34 Metoprolol Succinate (TopROL XL) 25 mg BID PO 02/12/21 21:00 02/14/21 09:47 DC 02/14/21 09:06 Metoprolol Succinate (TopROL XL) 75 mg DAILY PO 02/18/21 14:00 02/22/21 14:59 DC 02/22/21 10:04 Metoprolol Succinate (TopROL XL) 100 mg DAILY PO 02/18/21 09:00 02/18/21 10:52 DC Metoprolol Succinate (TopROL XL) 100 mg DAILY PO 02/23/21 09:00 02/25/21 09:12 Metoprolol Tartrate (Lopressor) 12.5 mg BID PO 02/14/21 21:00 02/17/21 11:28 DC 02/17/21 08:21 Metoprolol Tartrate (Lopressor) 25 mg BID PO 02/17/21 21:00 02/18/21 10:36 DC 02/18/21 07:42 Non-Formulary Medication ( See Comment Field Below ) REMOVE LIDODERM PATCH DAILY@21 XX 02/12/21 21:00 02/24/21 21:15 Nystatin (Mycostatin Powder, Nystop) abdominal folds, butto... BID TOP 02/12/21 21:00 02/24/21 08:06 Pantoprazole Sodium (Protonix) 40 mg BID PO 02/12/21 21:00 02/25/21 09:12 Quetiapine Fumarate (SEROquel) 25 mg QHS PRN PO insomnia 02/12/21 13:50 02/24/21 21:14 Ramelteon (Rozerem) 8 mg QHS PRN PO INSOMNIA 02/12/21 13:50 02/24/21 21:13 Senna (Senokot) 1 tab QHS PO 02/12/21 21:00 02/24/21 21:14 Sertraline HCl (Zoloft) 50 mg DAILY PO 02/13/21 09:00 02/25/21 09:15 Sucralfate (Carafate) 1 gm ACHS PO 02/13/21 12:00 02/25/21 09:12 Tramadol HCl (Ultram) 25 mg Q4HP PRN PO MODERATE PAIN (PS 5-7) 02/12/21 13:50 02/18/21 10:05 DC 02/18/21 05:32 Tramadol HCl (Ultram) 50 mg Q4HP PRN PO MODERATE PAIN (PS >5/10) 02/18/21 10:05 02/25/21 06:03 Tramadol HCl (Ultram) 50 mg QHS PO 02/19/21 21:00 02/24/21 21:14 Warfarin Sodium (Coumadin) 1 mg DAILY@17 PO 02/18/21 17:00 02/19/21 12:22 DC 02/18/21 16:40 Warfarin Sodium (Coumadin) 2.5 mg DAILY@17 PO 02/18/21 17:00 02/19/21 12:22 DC 02/18/21 16:40 Warfarin Sodium (Coumadin) 3 mg DAILY@17 PO 02/21/21 17:00 02/23/21 10:03 DC 02/21/21 16:59 Warfarin Sodium (Coumadin) 5 mg DAILY@17 PO 02/17/21 17:00 02/18/21 10:21 DC 02/17/21 16:59 Warfarin Sodium (Coumadin) 5 mg DAILY@17 PO 02/25/21 17:00 Warfarin Sodium (Coumadin) 6 mg DAILY@17 PO 02/24/21 17:00 02/25/21 10:40 DC 02/24/21 16:33 JOSE RAVI MD Feb 25, 2021 13:21
[2021-02-25 14:00] VITALS: BP 150/64
--- NOTE | 2021-02-25 16:19 | IPNPDOC ---
Text Note Date of Service The patient was seen on 02/25/21. NOTE SUBJECTIVE: Ms. Vega was found to sit on on a chair this morning. As per the patient her breathing is a lot better with no residual shortness of breath. She has been walking 2 rounds of the ARU floor without any shortness of breath anymore. Patient was in very good spirits and stated that she was ready to be discharged. Dr. Carrillo from [facility] has a plan for discharge on Tuesday. There were no overnight events, no requirement of oxygen as per the nurses. OBJECTIVE: PHYSICAL EXAMINATION: VITAL SIGNS: Please see below. GENERAL: Pleasant and cooperative. No acute distress. HEENT: PERRLA EOMI, no pallor, no scleral icterus, moist mucous membranes., CARDIOVASCULAR: Irregular rate and rhythm. No murmurs, rubs, or gallops LUNGS: Clear to auscultation bilaterally. No wheezes. No rhonchi ABDOMEN: Soft, nontender, mildly distended, Positive bowel sounds. Normal active bowel sounds NEUROLOGICAL: Alert and oriented times three. Cranial nerves II through XII grossly intact. Sensation grossly intact right ankle (no clonus/babinski) EXTREMITIES: 5\5 strength bilateral upper extremities. Bilateral pedal edema +1. ASSESSMENT AND PLAN: #1 Congestive heart failure secondary to essential hypertension: Patient's breathing is almost resolved completely. Continue IV Lasix and continue on oral Lasix on discharge. Yesterday's echo was read as: Hyperdynamic LV systolic function with estimated EF around 70% based on very limited views. There is septal wall motor abnormality likely related to pacemaker driven rhythm moderate pulmonary hypertension. Patient is advised to follow-up with nephrology in [place]. She sees Dr. Moore but wants to change to a different composer teaching artist. #2 chronic kidney stage IV: Patient's creatinine has remained stable going down from 1.5 to 1.33 this morning Again the patient was advised to see nephrology as outpatient to assess her kidney function and managing dosage of Lasix. We will be signing off on this patient today considering her stable creatinine levels. #3 iron deficiency anemia: Over the course of the hospital patient required 2 units of blood her hemoglobin has gone up to 10.7 without any symptoms. We thought iron deficiency anemia is most likely contributing factor for the patient's shortness of breath Patient was advised to continue her iron tablets at home. She reports no blood in her stools or urine. Could also be secondary to her chronic kidney disease. VS,Fishbone, I+O VS, Fishbone, I+O Laboratory Tests 02/25/21 05:44 Vital Signs Date Time Temp Pulse Resp B/P (MAP) Pulse Ox O2 Delivery O2 Flow Rate FiO2 02/25/21 14:00 98.3 80 19 150/64 (92) 98 Room Air I&O- Last 24 Hours up to 6 AM 02/25/21 06:00 Intake Total 610 ml Output Total 0 ml Balance 610 ml GME ATTESTATION GME ATTESTATION My faculty preceptor for this patient encounter was physically present during the encounter and was fully available. All aspects of the patient interview, examination, medical decision making process, and medical care plan development were reviewed and approved by the faculty preceptor. The faculty preceptor is aware and concurs with the plan as stated in the body of this note and will attest to such by his/her cosignature. Attending Note Attending Note CKD3b HTN HFpEF, Pulm HTN Iron Def anemia Cont diuretics on discharge. Renal function is stable. Cont PO iron. Follow up with Primary Sales And Marketing Administrator Dr Lowe after discharge. Whitney Romero MD Feb 25, 2021 16:17 JOANNA TAM MD Feb 26, 2021 07:29
[2021-02-25] MEDS: WARFARIN SOD 5MG TAB PO SCH (18:01)
[2021-02-25 20:00] VITALS: BP 151/72
[2021-02-25] MEDS: GABAPENTIN 100 MG CAP PO SCH (20:12)
[2021-02-25] MEDS: RAMELTEON 8 MG TAB (ROZEREM) PO PRN (20:12)
[2021-02-25] MEDS: traMADol 50 MG TAB PO SCH (20:12)
[2021-02-25] MEDS: SENNA 8.6 MG TAB (SENOKOT) PO SCH (20:17)
[2021-02-25] MEDS: **NOTE PATIENT COMMENT** MISC XX SCH (20:17)
[2021-02-26] MEDS: traMADol 50 MG TAB PO PRN (03:30)
[2021-02-26] MEDS: REMEDY PHYTOPLEX Z-GUARD PASTE 113GM TUBE (FROM STOREROOM PRODUCT) TOP SCH ×3 (05:10→17:08)
[2021-02-26] MEDS: LEVOTHYROXINE 112MCG TABLET (0.112MG) PO SCH (05:24)
[2021-02-26 06:00] VITALS: BP 146/67
[2021-02-26] MEDS: MAGIC MOUTHWASH SUSPENSION BTL SSP SCH ×3 (07:30→17:08)
[2021-02-26] MEDS: DOCUSATE SODIUM 100MG CAPSULE PO SCH ×2 (08:57→20:23)
[2021-02-26] MEDS: SUCRALFATE 1 GM TAB PO SCH ×5 (08:57→20:23)
[2021-02-26] MEDS: FERROUS SULFATE 325MG TAB PO SCH (08:58)
[2021-02-26] MEDS: ATORVASTATIN 20 MG TAB PO SCH (08:59)
[2021-02-26] MEDS: ACETAMINOPHEN 500 MG TAB PO SCH ×3 (08:59→22:07)
[2021-02-26] MEDS: SANTYL OINT 30GM TOP SCH ×2 (09:00→20:23)
[2021-02-26] MEDS: SERTRALINE HCL 50 MG TAB PO SCH (09:00)
[2021-02-26] MEDS: NYSTATIN 100,000 UNITS/GM TOPICAL PWD 15 GM TOP SCH ×2 (09:00→20:23)
[2021-02-26] MEDS: FUROSEMIDE 40 MG TAB PO SCH ×3 (09:01→17:07)
[2021-02-26] MEDS: LIDOCAINE 5% (LIDODERM) PATCH TD SCH (09:06)
[2021-02-26] MEDS: CYANOCOBALAMIN 500 MCG TAB PO SCH (09:09)
[2021-02-26] MEDS: PANTOPRAZOLE 40MG TAB (PROTONIX) PO SCH ×2 (09:13→20:24)
[2021-02-26] MEDS: amLODIPine 5 MG TAB PO SCH (09:13)
[2021-02-26] MEDS: METOPROLOL SUCC (TopROL XL) 100MG *XL* TAB PO SCH (09:13)
[2021-02-26 09:46] LABS: INR 2.87; PROTHROMBIN TIME 30.4 SECONDS (12.7-14.5)
[2021-02-26] MEDS ORDERED: SYNT112T2 PO (10:59)
[2021-02-26] MEDS ORDERED: ATOR40TA75 PO (10:59)
[2021-02-26] MEDS ORDERED: GABA-1171 PO (10:59)
[2021-02-26] MEDS ORDERED: FERR1TAB8 PO (10:59)
[2021-02-26] MEDS ORDERED: VITA500T40 PO (10:59)
[2021-02-26] MEDS ORDERED: PANT40TA29 PO (10:59)
[2021-02-26] MEDS ORDERED: SERT50TA29 PO (10:59)
[2021-02-26] MEDS ORDERED: FURO40TA2 PO (10:59)
[2021-02-26] MEDS ORDERED: AMLO1TAB24 PO (10:59)
[2021-02-26] MEDS ORDERED: METO1TAB33 PO (10:59)
[2021-02-26] MEDS ORDERED: SUCR1TA PO (10:59)
--- NOTE | 2021-02-26 12:07 | IPNPDOC ---
PM&R Progress Note DATE OF SERVICE: Feb 26, 2021 Warper Fixer Progress Note Subjective: Patient reports she feels ready to go home tomorrow and her breathing and pain is much improved. REVIEW OF SYSTEMS: The following is a completed review of systems and has been reviewed. Review of systems otherwise unremarkable. PAIN: Patient self reports no pain EYES: No recent vision changes EARS, NOSE, & THROAT: No throat pain, + dysphagia (improved) CARDIOVASCULAR: Denies chest pain or palpitations PULMONARY: + shortness of breath (resolved) GASTROINTESTINAL: Denies constipation/diarrhea, +black stools GENITOURINARY: denies dysuria MUSCULOSKELETAL:generalized weakness, right foot drop NEUROLOGICAL: +bilat feet paresthesias HEMATOLOGICAL: +anemia (improving) SKIN: +sternal and abdominal incision PSYCHIATRIC: Unremarkable All other review of systems found to be negative. PHYSICAL EXAMINATION: VITAL SIGNS: Please see below. GENERAL: Pleasant and cooperative. No acute distress. HEENT: PERRL. Extraocular movements intact. Clear conjunctiva, poor dentition CARDIOVASCULAR: Irregular rate and rhythm. No murmurs, rubs, or gallops LUNGS: Clear to auscultation bilaterally. No wheezes. No rhonchi ABDOMEN: Soft, nontender, mildly distended, Positive bowel sounds. Normal active bowel sounds NEUROLOGICAL: Alert and oriented times three. Cranial nerves II through XII grossly intact. Sensation grossly intact right ankle (no clonus/babinski) EXTREMITIES: 5\5 strength bilateral upper extremities. 5\5 strength right hip flexion and knee extension, 1/5 right ankle DF/EHL and plantar flexion. 5/5 strength in left lower extremity. SKIN: sternal incision c/d/i, pacemaker incision c/d/i -abdominal incisions healing ASSESSMENT:65-year-old F with past medical history of prior aortic valve repair who presents status post re-do aortic valve replacement and mitral valve replacement PLAN: 1. Rehab- PT/OT advance mobility and ADLs, strengthen/stretch/maintain ROM all 4 limbs, ambulating further with RW- room privileges today -MANUFACTURER'S REPRESENTATIVE for dysphagia work-up, magic mouth wash for optimal oral care, upgraded to level 4 diet per MANUFACTURER'S REPRESENTATIVE eval 2. Cardiac- s/p aortic valve and mitral mechanical valve replacement and pacemaker placement on Coumadin, given known GI bleed discussed with hospitalist that it would be safer for the patient if the INR goal was narrowed to 2.5-3, cont beta-apoorva- sternal and pacemaker precautions, avoid driving for 6 months -EKG ordered 02-17-21 as patient noted to have irregular HR and has been tachycardic, confirmed +Afib with RVR, discussed case with medicine on how to proceed, patient has been on low short acting dose beta-apoorva, but due to some soft BPs difficult maximize this med- called Dr. Santo 02-18-21 who gave informal consult over the phone and he recommended switching to Toprol daily with holding parameters and to give a one time dose of digoxin 0.25mg- hospitalist made aware of this plan and is in agreement- tachycardia resolved -Acute CHF exacerbation 02-17-21 patient noted in therapy to be more short of breath, +weight gain, BNP elevated to 7k, CXR cannot exclude effusion, one time dose of IV lasix ordered after which patient says she felt better, however patient is getting more short of breath in therapy 02-19-21 with BNP still elevated to 6k, repeat CXR showing vascular congestion, discussed with renal and hospitalist who started 2 day course of IV lasix and has now been on oral lasix, patient exercise tolerance and respiratory symptoms much improved- recs and assistance appreciated -HLD cont statin -medicine consulted to assist in overall management -need f/u cardiac surgeon and EP 3. Neuro- patient reporting right foot drop since her surgery, on exam she has both dorsiflexion and plantar flexion weakness with decreased sensation on the dorsal and plantar surface of her right foot- suspect this is a sciatic nerve injury involving both peroneal and tibial nerves from compression at the level of the buttock region- patient reports that when her legs are hanging off the chair her feet go numb, patient instructed to no longer let her legs hang off the chair and to keep them elevated to alleviate pressure on sciatic nerve, low suspicion for multilevel spine root compression as patient denies back pain -could be a lumbosacral plexopathy injury, retroperitoneal hematoma ruled out via CT non-contrast 02-14-21, patient did go into asystole while at [facility] [place], this may be an ischemic injury -will refer to neurology for NCS/EMG on d/c -consult placed with records administrator for AFO 3. Resp- monitor for infection 4. Endo- hx of hypothyroidism,TSH 18, and FT/3 low, patient's Synthroid increased to 112mg daily- patient educated on importance of taking synthroid on an empty stomach which she admits she never has as she prefers to take her medications with Pepsi, f/u with PMD for further dose adjustment -d/c ISS< finger sticks BID are very well controlled, will d/c altogether per patient request -recent A1C f 7.1%, will monitor FS while here and avoid metformin given CKD, consistent carb diet 5. Heme- anemia with Hgb 7.7% on 02-13-21 s/p 2 units rbcs, patient does have +FOBT will moitor H/H and cont iron supplements, renal following and patient receiving Venofer 6. GI- + GI bleed (+FOBT) while on Coumadin and ASA 325mg, on 02-18-21 called cardiac surgeon, Dr. Crews's office and spoke with his CHAMFERING MACHINE OPERATOR Olga who said it ok to take patient on aspirin entirely given GI bleed, recs appreciated - cont protonix 40mg BID and sucralfate, cont to monitor H/H which is relatively stable post transfusion, -consulted surgery due to drop in Hgb with +FOBT to see if inhouse scoping might be warranted given long-term need for anticoagulation-Dr. Murray's recs appreciated will cont to monitor H/H which has been stable 7. Pain- tramadol and tylenol, gabapentin -lidoderm patch to sternum 8. DVT ppx- teds and on coumadin 9. Psych- cont zoloft for depression, seroquel prn insomnia and rozerem 10. Renal- hx of CKD monitor for NEHEMIAS, renal consulted for fluid management 11. Dispo- plan for home 02-27-21, progressing towards goals, patient will need follow-up with neurology, cardiac surgeon, chart calculator, renal physician, and GI/general surgery, discussed plan of care with her sister again today Allergies Coded Allergies: phenytoin (Verified Allergy, Mild, HAND SWELLING, 02/12/21) Vital Signs Vital Signs Date Time Temp Pulse Resp B/P (MAP) Pulse Ox O2 Delivery O2 Flow Rate FiO2 02/26/21 09:13 80 146/67 02/26/21 06:00 98.0 19 98 Room Air Laboratory Data Labs 24H Laboratory Tests 2 02/25/21 16:56: Bedside Glucose (Misc Panel) 153H 02/26/21 09:18: Prothrombin Time 30.4H, Prothromb Time International Ratio 2.87 Microbiology Microbiology 02/22/21 Stool Occult Blood (NAVI) - Final, Complete Current Medications Current Medications Current Medications Medications (Trade) Dose Ordered Sig/Constantin Route PRN Reason Start Time Stop Time Status Last Admin Dose Admin Acetaminophen (Tylenol Tab) 1,000 mg TID PO 02/12/21 21:00 02/26/21 08:59 Al Hydrox/Mg Hydrox/Simethicone (Mylanta) 30 ml Q4HP PRN PO DYSPEPSIA 02/12/21 13:50 Amlodipine Besylate (Norvasc) 5 mg DAILY PO 02/22/21 09:00 02/26/21 09:13 Aspirin (Ecotrin) 325 mg DAILY PO 02/13/21 09:00 02/18/21 10:25 DC 02/18/21 07:41 Atorvastatin Calcium (Lipitor) 40 mg DAILY PO 02/13/21 09:00 02/26/21 08:59 Collagenase (SantyL) 1 dose BID TOP 02/14/21 09:00 02/25/21 20:18 Collagenase (SantyL) apply to abdominal surgi... BID TOP 02/14/21 21:00 UNV Cyanocobalamin (Vitamin B12) 500 mcg QAM PO 02/13/21 09:00 02/26/21 09:09 Dextrose (Dextrose 50%) 25 ml ASDIRECTED PRN IV SEE LABEL COMMENTS 02/12/21 13:50 Docusate Sodium (Colace) 100 mg BID PO 02/12/21 21:00 02/26/21 08:57 Ferrous Sulfate (Ferrous Sulfate) 325 mg DAILY PO 02/13/21 09:00 02/26/21 08:58 Furosemide (LASIX injection) 40 mg BID@09,17 IV 02/19/21 17:55 02/21/21 14:53 DC 02/21/21 09:29 Furosemide (Lasix) 40 mg BID@0900,1700 PO 02/22/21 17:00 02/26/21 09:01 Furosemide (Lasix) 40 mg DAILY PO 02/19/21 11:15 02/20/21 10:25 DC 02/19/21 14:31 Furosemide (Lasix) 40 mg DAILY PO 02/22/21 09:00 02/22/21 12:35 DC 02/22/21 10:05 Gabapentin (Neurontin) 200 mg QHS PO 02/12/21 21:00 02/18/21 10:05 DC 02/17/21 20:06 Gabapentin (Neurontin) 400 mg QHS PO 02/18/21 21:00 02/25/21 20:12 Glucagon (Glucagon) 1 mg ASDIRECTED PRN SC SEE LABEL COMMENTS 02/12/21 13:50 Glucose (Glucose) 16 GM ASDIRECTED PRN PO SEE LABEL COMMENTS 02/12/21 13:50 Home Med (Home Med List Complete!) ASDIRECTED XX 02/12/21 19:40 02/12/21 19:46 DC Insulin Human Lispro (HumaLOG INSULIN) SEE PROTOCOL TABLE AC SC 02/13/21 07:30 02/16/21 11:51 DC 02/16/21 09:01 Insulin Human Lispro (HumaLOG INSULIN) SEE PROTOCOL TABLE QHS SC 02/12/21 21:00 02/16/21 11:51 DC Iron 200 mg/ Sodium Chloride 110 ml @ 110 mls/hr Q24H IV 02/23/21 12:00 02/25/21 12:59 DC 02/25/21 12:34 Levothyroxine Sodium (Synthroid) 88 mcg DAILY@06 PO 02/13/21 06:00 02/18/21 12:54 DC 02/18/21 05:31 Levothyroxine Sodium (Synthroid) 100 mcg DAILY@06 PO 02/19/21 06:00 02/19/21 09:46 DC 02/19/21 05:49 Levothyroxine Sodium (Synthroid) 112 mcg DAILY@06 PO 02/20/21 06:00 02/26/21 05:24 Lidocaine (Lidoderm Patch) 1 patch DAILY TD 02/13/21 09:00 02/19/21 13:46 DC 02/14/21 09:04 Lidocaine (Lidoderm Patch) 1 patch DAILY TD 02/19/21 14:00 02/26/21 09:06 Lidocaine/ Diphenhydr/Alum/ Mg/Simeth (Magic Mouthwash) 5ML AC SSP 02/13/21 12:00 02/21/21 09:34 Metoprolol Succinate (TopROL XL) 25 mg BID PO 02/12/21 21:00 02/14/21 09:47 DC 02/14/21 09:06 Metoprolol Succinate (TopROL XL) 75 mg DAILY PO 02/18/21 14:00 02/22/21 14:59 DC 02/22/21 10:04 Metoprolol Succinate (TopROL XL) 100 mg DAILY PO 02/18/21 09:00 02/18/21 10:52 DC Metoprolol Succinate (TopROL XL) 100 mg DAILY PO 02/23/21 09:00 02/26/21 09:13 Metoprolol Tartrate (Lopressor) 12.5 mg BID PO 02/14/21 21:00 02/17/21 11:28 DC 02/17/21 08:21 Metoprolol Tartrate (Lopressor) 25 mg BID PO 02/17/21 21:00 02/18/21 10:36 DC 02/18/21 07:42 Non-Formulary Medication ( See Comment Field Below ) REMOVE LIDODERM PATCH DAILY@21 XX 02/12/21 21:00 02/25/21 20:17 Nystatin (Mycostatin Powder, Nystop) abdominal folds, butto... BID TOP 02/12/21 21:00 02/24/21 08:06 Pantoprazole Sodium (Protonix) 40 mg BID PO 02/12/21 21:00 02/26/21 09:13 Quetiapine Fumarate (SEROquel) 25 mg QHS PRN PO insomnia 02/12/21 13:50 02/24/21 21:14 Ramelteon (Rozerem) 8 mg QHS PRN PO INSOMNIA 02/12/21 13:50 02/25/21 20:12 Senna (Senokot) 1 tab QHS PO 02/12/21 21:00 02/24/21 21:14 Sertraline HCl (Zoloft) 50 mg DAILY PO 02/13/21 09:00 02/26/21 09:00 Sucralfate (Carafate) 1 gm ACHS PO 02/13/21 12:00 02/26/21 08:57 Tramadol HCl (Ultram) 25 mg Q4HP PRN PO MODERATE PAIN (PS 5-7) 02/12/21 13:50 02/18/21 10:05 DC 02/18/21 05:32 Tramadol HCl (Ultram) 50 mg Q4HP PRN PO MODERATE PAIN (PS >5/10) 02/18/21 10:05 02/26/21 03:30 Tramadol HCl (Ultram) 50 mg QHS PO 02/19/21 21:00 02/25/21 20:12 Warfarin Sodium (Coumadin) 1 mg DAILY@17 PO 02/18/21 17:00 02/19/21 12:22 DC 02/18/21 16:40 Warfarin Sodium (Coumadin) 2.5 mg DAILY@17 PO 02/18/21 17:00 02/19/21 12:22 DC 02/18/21 16:40 Warfarin Sodium (Coumadin) 3 mg DAILY@17 PO 02/21/21 17:00 02/23/21 10:03 DC 02/21/21 16:59 Warfarin Sodium (Coumadin) 5 mg DAILY@17 PO 02/17/21 17:00 02/18/21 10:21 DC 02/17/21 16:59 Warfarin Sodium (Coumadin) 5 mg DAILY@17 PO 02/25/21 17:00 02/25/21 18:01 Warfarin Sodium (Coumadin) 6 mg DAILY@17 PO 02/24/21 17:00 02/25/21 10:40 DC 02/24/21 16:33 JOSE RAVI MD Feb 26, 2021 12:07
[2021-02-26 12:59] VITALS: BP 107/58
[2021-02-26] MEDS: WARFARIN SOD 5MG TAB PO SCH (17:07)
[2021-02-26 20:00] VITALS: BP 139/72
[2021-02-26] MEDS: traMADol 50 MG TAB PO SCH (20:21)
[2021-02-26] MEDS: GABAPENTIN 100 MG CAP PO SCH (20:22)
[2021-02-26] MEDS: RAMELTEON 8 MG TAB (ROZEREM) PO PRN (20:22)
[2021-02-26] MEDS: SENNA 8.6 MG TAB (SENOKOT) PO SCH (20:24)
[2021-02-26] MEDS: **NOTE PATIENT COMMENT** MISC XX SCH (20:24)
[2021-02-27] MEDS: traMADol 50 MG TAB PO PRN (02:06)
[2021-02-27] MEDS: QUEtiapine FUMARATE 25 MG TAB PO PRN (02:09)
[2021-02-27] MEDS: REMEDY PHYTOPLEX Z-GUARD PASTE 113GM TUBE (FROM STOREROOM PRODUCT) TOP SCH ×3 (05:26→12:00)
[2021-02-27] MEDS: LEVOTHYROXINE 112MCG TABLET (0.112MG) PO SCH (05:27)
[2021-02-27 06:00] VITALS: BP 116/60
[2021-02-27] MEDS: SUCRALFATE 1 GM TAB PO SCH ×2 (07:30→12:00)
[2021-02-27] MEDS: MAGIC MOUTHWASH SUSPENSION BTL SSP SCH ×2 (07:30→12:00)
[2021-02-27] MEDS: NYSTATIN 100,000 UNITS/GM TOPICAL PWD 15 GM TOP SCH (08:25)
[2021-02-27 08:27] LABS: INR 3.36; PROTHROMBIN TIME 34.3 SECONDS (12.7-14.5)
[2021-02-27] MEDS: DOCUSATE SODIUM 100MG CAPSULE PO SCH (09:00)
[2021-02-27] MEDS: FUROSEMIDE 40 MG TAB PO SCH (09:00)
[2021-02-27] MEDS: LIDOCAINE 5% (LIDODERM) PATCH TD SCH (10:42)
[2021-02-27] MEDS: SERTRALINE HCL 50 MG TAB PO SCH (10:43)
[2021-02-27] MEDS: CYANOCOBALAMIN 500 MCG TAB PO SCH (10:43)
[2021-02-27] MEDS: FERROUS SULFATE 325MG TAB PO SCH (10:43)
[2021-02-27] MEDS: ATORVASTATIN 20 MG TAB PO SCH (10:43)
[2021-02-27] MEDS: PANTOPRAZOLE 40MG TAB (PROTONIX) PO SCH (10:43)
[2021-02-27] MEDS: ACETAMINOPHEN 500 MG TAB PO SCH (10:44)
[2021-02-27 10:46] VITALS: BP 111/56
[2021-02-27] MEDS: amLODIPine 5 MG TAB PO SCH (10:46)
[2021-02-27] MEDS: METOPROLOL SUCC (TopROL XL) 100MG *XL* TAB PO SCH (10:46)
[2021-02-27] MEDS: SANTYL OINT 30GM TOP SCH (10:47)
--- NOTE | 2021-03-10 15:10 | PMRDS ---
NAME: [facility] WT ID#: [id number] : [id number] JOB: [id number] NANCY: 03/10/2021 ACCT: [id number] DOCTOR: JOSE RAVI MD PMR DISCHARGE SUMMARY DATE OF ADMISSION: 02/12/2021 DATE OF DISCHARGE: 02/27/2021 CHIEF COMPLAINT/DISCHARGE DIAGNOSIS: Weakness in the setting of aortic and mitral valve repair with congestive heart failure (CHF) exacerbation and right foot drop. HISTORY OF PRESENT ILLNESS: A 65-year-old female with a past medical history of hypertension, hyperlipidemia, obesity, hypothyroidism, depression, chronic kidney disease (CKD) IV, vulvar cancer status post left partial radical vulvectomy in 2004, severe aortic and mitral valve stenosis, admitted to [facility] for a planned surgery, for which she underwent a sternotomy with a redo aortic valve replacement (original done in 2007) and mitral valve repair. Postoperatively she developed a fever, for which infectious workup was negative. She was started on Coumadin with goal INR 2.5-3.5 for mechanical valve and on 01/27/2021 underwent a pacemaker placement. She had hoarseness, for which she was initially made nothing by mouth then placed a pureed diet with FEES study showing normal vocal cords. She was anemic and received 1 unit of packed red blood cells (PRBC) on 02/09/2021. Chest x-ray on February 12 showed "status post median sternotomy. A left-sided transvenous pacemaker...bibasilar atelectasis. No pneumonia, pulmonary edema, pneumothoraces, or pleural effusions" she had mobility and activities of daily living (ADLs) impairments below her prior level of function with difficulties with overall endurance and deemed medically appropriate for discharge to acute rehabilitation unit (ARU) on 02/12/2021. PAST MEDICAL HISTORY: As per history of present illness (HPI). HOSPITAL COURSE: Patient was admitted and enrolled in a comprehensive physical therapy (PT)/occupational therapy (OT) program, speech/language pathology program. She received 24-hour nursing supervision, and weekly team meetings were held to discuss her progress. Patient arrived with hemoglobin of 7.7, reporting history of tarry, black stools, and she received 2 units of PRBC with positive fecal occult blood test. She was also continued on iron supplements. Patient was started on Protonix 40 mg twice a day and sucralfate, and her hemoglobin and hematocrit remained relatively stable during her hospital course. General surgery was consulted to discuss possible scoping during her hospital course; however, they recommended medical management at this point, and given patient's stable hemoglobin and hematocrit, no intervention was deemed necessary while admitted on acute rehabilitation unit (ARU). Patient had an episode of worsening shortness of breath with an elevated brain natriuretic peptide (BNP) and chest x-ray showing vascular edema, and she was started on a short course of intravenous (IV) diuretics, after which renal managed her fluid quite well, and she had an improvement in her BNP and an improvement in her breathing status and her fluid overload. Patient was educated on the importance of maintaining a fluid restriction at home. Patient was also noted to have severe hypothyroidism despite taking Synthroid at home, and patient did admit that she only drinks Pepsi and takes her Synthroid with Pepsi, and she was educated on the importance of taking Synthroid on an empty stomach with water. Patient agreed to drink water only when taking Synthroid. Her Synthroid dose was also increased, and she was instructed to followup with her primary care physician as to whether or not to further adjust this medication. Patient had right foot drop, weakness with both dorsiflexion and plantarflexion, and lower motor neuron signs on exam. Reason for her foot drop was thought to be possibly due to compression of the sciatic nerve. There was little suspicion for multi spinal root compression given her denial of back pain. Also possible source of foot drop is a lumbosacral plexopathy injury. CT abdomen was done to rule out retroperitoneal hematoma in the setting of anemia, and this was negative. She was instructed to followup with neurology upon discharge for nerve conduction studies and electromyelograms (EMGs). Consult was placed for Ncr Operator and she fitted for an ankle foot orthosis (AFO) Patient's pain was treated with gabapentin and Tramadol, and she made steady gains in therapy and was deemed medically and functionally stable to return home. DISCHARGE MEDICATIONS: As per instructions. FUNCTIONAL HISTORY ON DISCHARGE: Patient was modified independent from ambulatory and ADL perspective. Thank you for this referral.
== END 2021-02-27 12:50 | disposition home health service (06) | DRG 949 ==
LOC: M PM&R 18:12
PROVIDERS: ADMIT Physical Medicine & Rehabilitation; ATTEND Physical Medicine & Rehabilitation
PROC: 30233N1 Transfusion of Nonautologous Red Blood Cells into Peripheral Vein, Percutaneous Approach (ICD-10-PCS; principal; 2021-02-13)
DX: Z48.812 Encounter for surgical aftercare following surgery on the circulatory system (principal); I13.0 Hypertensive heart and chronic kidney disease with heart failure and stage 1 through stage 4 chronic kidney disease, or unspecified chronic kidney disease; N18.4 Chronic kidney disease, stage 4 (severe); N17.9 Acute kidney failure, unspecified; Z95.2 Presence of prosthetic heart valve; E78.5 Hyperlipidemia, unspecified; E66.9 Obesity, unspecified; E03.9 Hypothyroidism, unspecified; F32.9 Major depressive disorder, single episode, unspecified; Z95.0 Presence of cardiac pacemaker; Z74.1 Need for assistance with personal care; Z74.09 Other reduced mobility; R20.0 Anesthesia of skin; R13.10 Dysphagia, unspecified; I50.9 Heart failure, unspecified; G47.00 Insomnia, unspecified; Z79.82 Long term (current) use of aspirin; Z79.4 Long term (current) use of insulin; Z79.01 Long term (current) use of anticoagulants; Z79.899 Other long term (current) drug therapy; E11.22 Type 2 diabetes mellitus with diabetic chronic kidney disease; R53.1 Weakness; D50.9 Iron deficiency anemia, unspecified; M21.371 Foot drop, right foot; G57.00 Lesion of sciatic nerve, unspecified lower limb; I48.91 Unspecified atrial fibrillation